=== PATIENT | male | born 1935 | race African-American/Black ===

== ENCOUNTER 2017-01-03 07:06 | Day surgery (SDC) | payer MEDICARE, BC ==
[2017-01-02 07:43] VITALS: BMI 24.3
[~2017-01-03 07:06] MED LIST: FLU VACC TS2017-18 (>65YR) 0.5 ML SYRINGE IM ONE
[2017-01-03 10:51] VITALS: BP 123/52; TEMP 99.4
--- NOTE | 2017-01-03 12:13 | SPC ---
EXAM: LEFT UPPER EXTREMITY FISTULOGRAM: HISTORY: Nonmaturing fistula. COMPARISON: None. EXPOSURE: 2.6 minutes, [id number] mGy*^cm2. FINDINGS: Technically successful left upper extremity fistulogram. There is evidence of a nonmaturing cephalic outflow with multiple collaterals. Despite 2 separate attempts, visualization of the central venous system is somewhat limited. There is short segment mild stenosis at the left subclavian vein. Ther e is some suggestion of contrast opacification of the left brachiocephalic vein as well as the superi or vena cava. With manual compression, contrast was refluxed and the arterial anastomosis is patent. TECHNIQUE: Consent was obtained to perform a left upper extremity fistulogram. The left arm was prepped and pre pped and draped in sterile fashion. 1% Lidocaine, buffered with sodium bicarbonate, was used for loc al anesthesia. Under fluoroscopic guidance, micropuncture needle was used to cannulate the venous ou tflow tract. A 4 Croatian sheath was placed. Through the sheath, a left upper extremity fistulogram w as performed. There are no immediate postprocedure complications. Hemostasis was achieved with manu al compression. IMPRESSION: 1. Nonmaturing fistula likely due to multiple collaterals along the proximal venous outflow. 2. Limited evaluation of the central venous system. There appears to be short-segment mild stenosis involving the left subclavian vein. Limited opacification of the left brachiocephalic vein and supe rior vena cava. Results of the study discussed with Dr. Stratton 01/03/17 at 10:27 a.m. CODE CR POS: MEL
[2017-01-03] MEDS ORDERED: Heparin 1,000 UNITS/ML VIAL ONE (17:00)
--- NOTE | 2017-01-03 20:50 | HP ---
HISTORY OF PRESENT ILLNESS: Henrique Colindres is an 81-year-old male patient who went for a fistulogram t bar. This revealed abundant collaterals left arm from his Everett fistula. This Everett fistula was formed 10/30/2016 and was not maturing as expected. Plan at this time is for intraoperative angiogra ms and ligation of collaterals as indicated. Although not available to my viewing, patient was noted to have a stenting of his superior vena cava and probably collateral runoff from that. This stent i s evident from a chest x-ray 11/06/2016. Patient has a right arm fistula placed in 2010, functioning ; however, he has edema in the right arm. This due to chronic outflow obstruction. This edema is no t bothersome to the patient. Patient is mobile in a wheelchair and his grandson brings him into the office frequently. The patient dialyzes Saturday, Saturday, and Saturday, 829 at [place] [facility]. He dialyzes at [facility] [place]. MEDICATIONS: Isosorbide mononitrate 60 mg a.m., Reglan 5 mg a.c. and at bedtime, Protonix 40 mg a da y, terazosin 2 mg a day, Flomax 0.4 mg a day, Sensipar 30 mg a day, Renvela 800 mg 2 tabs t.i.d., hyd ralazine 100 mg t.i.d., losartan 100 mg at bedtime, nifedipine ER 90 mg daily, gabapentin 300 mg t.i. d., metoprolol 75 mg b.i.d., aspirin 81 mg a day. PAST MEDICAL HISTORY: End-stage renal disease on maintenance dialysis using the right arm dialysis f istula, subclavian vein obstruction right, superior vena cava stent, poly obstruction, bilateral subc lavian veins chronic, microscopic hematuria, BPH, polycystic kidneys, prior history of prostate cance r, history of coronary disease, hyperlipidemia, essential hypertension, chronic prostatitis, heart fa ilure. SOCIAL HISTORY: Patient lives at home, taking care of his graft grandson. He has history of tobacco use, not currently. Alcohol none. PHYSICAL EXAMINATION: VITAL SIGNS: 154/51, 48, 98.1 degrees, 68 inches. LUNGS: Clear to auscultation. ALLERGIES: Few rhonchi at the base. CARDIAC: Regular rate and rhythm. ABDOMEN: Soft. EXTREMITIES: Edematous right upper arm, left arm fistula, Everett patent thrill and bruit present, co llaterals noted. ASSESSMENT AND PLAN: 1. End-stage renal disease with severe superior vena cava obstruction, right subclavian vein obstruc tion, chronic right arm edema with a functioning fistula, collateral runoff. Left arm fistula was no t maturing as expected and will obtain intraoperative angiograms and ligation of collaterals as able. 2. Congestive heart failure history, August 2016, echocardiogram 55-60% EF, left atrium dilated, mild to moderate mitral regurgitation, mild tricuspid regurgitation, moderate pulmonic regurgitation. 3. End-stage renal disease. 4. Deconditioning 5. Poor functional status.
== END 2017-01-03 09:20 | disposition home or self-care (01) ==
LOC: SPEC 07:06
PROVIDERS: ATTEND Specialist
PROC: B51W1ZZ Fluoroscopy of Dialysis Shunt/Fistula using Low Osmolar Contrast (ICD-10-PCS; principal; 2017-01-03)
DX: T82.590A Other mechanical complication of surgically created arteriovenous fistula, initial encounter (principal); N18.6 End stage renal disease
CPT/HCPCS: 36901; J1644

== ENCOUNTER 2017-01-15 10:23 | Day surgery (SDC) | payer MEDICARE, BC ==
[2017-01-03 11:35] VITALS: BMI 25.1
--- NOTE | 2017-01-03 20:50 | HP ---
HISTORY OF PRESENT ILLNESS: Henrique Colindres is an 81-year-old male patient who went for a fistulogram t bar. This revealed abundant collaterals left arm from his Everett fistula. This Everett fistula was formed 10/30/2016 and was not maturing as expected. Plan at this time is for intraoperative angiogra ms and ligation of collaterals as indicated. Although not available to my viewing, patient was noted to have a stenting of his superior vena cava and probably collateral runoff from that. This stent i s evident from a chest x-ray 11/06/2016. Patient has a right arm fistula placed in 2010, functioning ; however, he has edema in the right arm. This due to chronic outflow obstruction. This edema is no t bothersome to the patient. Patient is mobile in a wheelchair and his grandson brings him into the office frequently. The patient dialyzes Saturday, Saturday, and Saturday, 829 at [facility]. He dialyzes at [facility]. MEDICATIONS: Isosorbide mononitrate 60 mg a.m., Reglan 5 mg a.c. and at bedtime, Protonix 40 mg a da y, terazosin 2 mg a day, Flomax 0.4 mg a day, Sensipar 30 mg a day, Renvela 800 mg 2 tabs t.i.d., hyd ralazine 100 mg t.i.d., losartan 100 mg at bedtime, nifedipine ER 90 mg daily, gabapentin 300 mg t.i. d., metoprolol 75 mg b.i.d., aspirin 81 mg a day. PAST MEDICAL HISTORY: End-stage renal disease on maintenance dialysis using the right arm dialysis f istula, subclavian vein obstruction right, superior vena cava stent, poly obstruction, bilateral subc lavian veins chronic, microscopic hematuria, BPH, polycystic kidneys, prior history of prostate cance r, history of coronary disease, hyperlipidemia, essential hypertension, chronic prostatitis, heart fa ilure. SOCIAL HISTORY: Patient lives at home, taking care of his graft grandson. He has history of tobacco use, not currently. Alcohol none. PHYSICAL EXAMINATION: VITAL SIGNS: 154/51, 48, 98.1 degrees, 68 inches. LUNGS: Clear to auscultation. ALLERGIES: Few rhonchi at the base. CARDIAC: Regular rate and rhythm. ABDOMEN: Soft. EXTREMITIES: Edematous right upper arm, left arm fistula, Everett patent thrill and bruit present, co llaterals noted. ASSESSMENT AND PLAN: 1. End-stage renal disease with severe superior vena cava obstruction, right subclavian vein obstruc tion, chronic right arm edema with a functioning fistula, collateral runoff. Left arm fistula was no t maturing as expected and will obtain intraoperative angiograms and ligation of collaterals as able. 2. Congestive heart failure history, August 2016, echocardiogram 55-60% EF, left atrium dilated, mild to moderate mitral regurgitation, mild tricuspid regurgitation, moderate pulmonic regurgitation. 3. End-stage renal disease. 4. Deconditioning 5. Poor functional status.
[2017-01-15 11:39] LABS: #Eosinphils 0.4 thou/uL (0.0-0.7); #Lymphocytes 0.9 thou/uL (1.20-3.40); #Monocytes 0.7 thou/uL (0.11-0.59); #Neutrophils 3.7 thou/uL (1.40-6.50); %Basophils 0.3 % (0.0-1.0); %Eosinophils 6.1 % (0.0-10.0); %Lymphocytes 16.4 % (21.0-51.0); Hematocrit 33.9 % (42.0-52.0); Mean Platelet Volume 10.9 fL (7.4-10.4); Red Blood Cell (RBC) Count 3.53 mill/uL (4.70-6.10); White Blood Cell (WBC) Count 5.7 thou/uL (4.8-10.8)
[2017-01-15] MEDS ORDERED: CEFAZOLIN/Water 2 GM/20 ML SYRINGE ONE (11:46)
[2017-01-15 11:58] LABS: Anion Gap 13 mmol/L (10-20); BUN (Urea Nitrogen) 71 mg/dL (8.4-25.7); Calc. Creatinine Clearance 8 mL/min (70-130); Calcium 8.9 mg/dL (7.8-10.44); Carbon Dioxide 29 mmol/L (23-31); Chloride 101 mmol/L (98-107); Estimated GFR-MDRD 9
[2017-01-15] MEDS ORDERED: Protamine Sulfate 50 MG/5 ML VIAL ONE (12:37)
[2017-01-15] MEDS ORDERED: Ioversol 68 % 50 ML VIAL ONE ×2 (12:37→13:40)
[2017-01-15] MEDS ORDERED: Bupivacaine/Epinephrine 0.25% 30 ML VIAL ONE (12:37)
[2017-01-15] MEDS ORDERED: Heparin 5,000 UNITS/ML VIAL ONE (12:37)
[2017-01-15] MEDS ORDERED: Bupivacaine PF 0.5% 30 ML VIAL ONE (13:00)
--- NOTE | 2017-01-15 14:44 | OP ---
DATE OF OPERATION: 01/15/2017 PREOPERATIVE DIAGNOSES: End-stage renal disease, occluded right subclavian vein with edematous right arm with functioning dialysis access right arm with failure to mature left arm fistula, Everett with collaterals fistulogram. POSTOPERATIVE DIAGNOSES: End-stage renal disease, occluded right subclavian vein with edematous righ t arm with functioning dialysis access right arm with failure to mature left arm fistula, Everett with collaterals fistulogram. PROCEDURES: Intraoperative fistulogram, left arm Everett fistula with ligation of collaterals complet ion angiograms (revision of a primary fistula without thrombectomy). SURGEON: Dr. Jarrell Stratton ANESTHESIA: Regional sedation. PROCEDURE IN DETAIL: Patient taken to the operating room where under intravenous sedation, left uppe r extremity was prepared with ChloraPrep and draped in routine fashion. A 21-gauge Angiocath inserte d into the Everett fistula left arm and angiograms obtained using fluoroscopy marking through collater als making incisions over the arm and dissected free and placed a clip closing the wounds with contin uous subcutaneous suture of 4-0 Monocryl and DermaGlue applied. Completion angiogram revealed resolu tion of collaterals. There seemed to be outflow primarily through the basilic vein and the cephalic vein did not seem to be incontinuity in the upper arm. The patient tolerated the procedure well.
== END 2017-01-15 15:05 | disposition home or self-care (01) ==
LOC: SDC 10:23
PROVIDERS: ATTEND Specialist
PROC: 05WY03Z Revision of Infusion Device in Upper Vein, Open Approach (ICD-10-PCS; principal; 2017-01-15)
DX: T82.590A Other mechanical complication of surgically created arteriovenous fistula, initial encounter (principal); I13.2 Hypertensive heart and chronic kidney disease with heart failure and with stage 5 chronic kidney disease, or end stage renal disease; N18.6 End stage renal disease; I50.9 Heart failure, unspecified; E78.5 Hyperlipidemia, unspecified; Z95.5 Presence of coronary angioplasty implant and graft; Z98.890 Other specified postprocedural states; Z87.891 Personal history of nicotine dependence; Z99.2 Dependence on renal dialysis
CPT/HCPCS: 36415; 76000; 80048; 85025; J0131; J1644; J2720; Q9967; S0020

== ENCOUNTER 2017-10-14 10:02 | Outpatient (CLI) | payer MEDICARE, BC | END 2017-10-14 10:03 | disposition home or self-care (01) | LOC: BICCT 10:02 | PROVIDERS: ATTEND Internal Medicine | DX: R91.1 Solitary pulmonary nodule (principal); F03.90 Unspecified dementia, unspecified severity, without behavioral disturbance, psychotic disturbance, mood disturbance, and anxiety; J98.11 Atelectasis; J90 Pleural effusion, not elsewhere classified; R91.8 Other nonspecific abnormal finding of lung field | CPT/HCPCS: 71250 ==

== ENCOUNTER 2018-07-01 05:05 | Inpatient (IN) | payer MEDICARE, BC ==
[2018-07-01] MEDS ORDERED: Nitroglycerin 2% Ointment 1 INCH/1 GM Packet ONE (06:04)
[2018-07-01] MEDS ORDERED: Furosemide 40 MG/4 ML VIAL ONE ×2 (06:04→08:03)
[2018-07-01 06:21] LABS: #Eosinphils 0.2 thou/uL (0.0-0.7); #Lymphocytes 0.4 thou/uL (1.20-3.40); #Monocytes 0.5 thou/uL (0.11-0.59); #Neutrophils 3.6 thou/uL (1.40-6.50); %Basophils 0.3 % (0.0-1.0); %Eosinophils 4.7 % (0.0-10.0); %Lymphocytes 8.4 % (21.0-51.0); %Monocytes 10.9 % (0.0-10.0); %Neutrophils 75.7 % (42.0-75.0); Hemoglobin 6.1 g/dL (14.0-18.0); Mean Corpuscular HGB CONC 33.2 g/dL (32.0-36.0); Mean Corpuscular Volume 99.3 fL (78.0-98.0); RBC Distribution Width 15.6 % (11.5-14.5); Red Blood Cell (RBC) Count 1.84 mill/uL (4.70-6.10); White Blood Cell (WBC) Count 4.8 thou/uL (4.8-10.8)
[2018-07-01 06:37] LABS: Actual Bicarbonate (HCO3a) 31.8 mEq/L (22-28); Analyzer IN Cardio ER; Base Excess (BEa) 8.3 mEq/L (-2.0 to +3.0); CO2 Tension 39.7 mmHg (35.0-45.0); Carboxyhemoglobin (COHb) 2.2 gm% (0.0-3.0); Hemoglobin (Hb) 6.3 g/dL (14.0-18.0); O2 Tension (PaO2) 74.5 mmHg (> 60.0); Potassium - ABG Lab 3.12 mmol/L (3.70-5.30); pH, Arterial 7.52 (7.35-7.45)
[2018-07-01 06:38] LABS: ALV-art Gradient 46.995 (0-20); Puncture Site LINE
[2018-07-01 06:39] LABS: Mean Platelet Volume 9.5 fL (7.4-10.4); Platelet Count 117 thou/uL (130-400)
[2018-07-01 06:47] LABS: ALT (SGPT) 9 U/L (8-55); AST (SGOT) 17 U/L (5-34); Albumin 3.4 g/dL (3.4-4.8); Alkaline Phosphatase 74 U/L (40-150); Anion Gap 15 mmol/L (10-20); BUN (Urea Nitrogen) 32 mg/dL (8.4-25.7); Bilirubin, Total 0.5 mg/dL (0.2-1.2); Calc. Creatinine Clearance 0 mL/min (70-130); Calcium 8.3 mg/dL (7.8-10.44); Carbon Dioxide 33 mmol/L (23-31); Chloride 97 mmol/L (98-107); Estimated GFR-MDRD 14; Glucose 90 mg/dL (83-110); Potassium 3.4 mmol/L (3.5-5.1); Protein, Total 6.4 g/dL (5.8-8.1); Sodium 142 mmol/L (136-145)
[2018-07-01 07:15] LABS: CKMB 2.4 ng/mL (0-6.6)
[2018-07-01 07:50] LABS: Prothrombin Time 13.4 SEC (12.0-14.7)
[2018-07-01 08:13] LABS: PTT 17.3 SEC (22.9-36.1)
--- NOTE | 2018-07-01 08:24 | RAD ---
PORTABLE CHEST ONE VIEW: 07/01/2018 5:29 a.m. HISTORY: Dyspnea. COMPARISON: 11/06/2016 FINDINGS: The heart is enlarged. There is continued elevation of the left hemidiaphragm with left basilar pleu ral parenchymal changes. There is mild pulmonary vascular congestion. No pneumothoraces are seen. No large right-sided pleural effusions are identified. POS: [facility]
[2018-07-01] MEDS ORDERED: Acetaminophen 325 MG TAB PO PRN (09:21)
[2018-07-01] MEDS ORDERED: Ondansetron ODT 4 MG TAB PO PRN (09:21)
[2018-07-01] MEDS ORDERED: Zolpidem Tartrate 5 MG TAB PO PRN (09:21)
--- NOTE | 2018-07-01 10:16 | HP ---
PRIMARY CARE PROVIDER: Dr. Tenorio. HISTORY OF PRESENT ILLNESS: The patient presents to the emergency room with shortness of breath. No chest pain. No history of orthopnea or paroxysmal nocturnal dyspnea. No sweats or nausea. He was found to have a hemoglobin of 6.1, gives a history of blood in his stools on multiple occasions 7-14 days ago. He did not seek medical care for same. His troponin is 18. PAST MEDICAL HISTORY: 1. Hypertension. 2. Coronary artery disease. 3. Hypothyroidism. 4. Dyslipidemia. 5. End-stage renal disease, on hemodialysis. Sees Dr. Lo. 6. Prostate cancer. MEDICATIONS: 1. Gabapentin 300 mg q.i.d. 2. Losartan 100 mg a day. 3. Hydralazine 100 mg 4 times a day. 4. Imdur 60 mg a day. 5. Reglan 5 mg 3 times a day. 6. Procardia 90 mg a day. 7. Protonix 40 mg a day. 8. Flomax 0.4 mg a day. 9. Terazosin 2 mg a day. ALLERGIES: NO KNOWN DRUG ALLERGIES. PAST SURGICAL HISTORY: Hemodialysis catheter. FAMILY HISTORY: Positive for hypertension. SOCIAL HISTORY: No tobacco. No alcohol. Full code status. Discussed with daughter. REVIEW OF SYSTEMS: GENERAL: No headaches, dizziness, or fainting. EYES: No double vision, blurred vision, or flashing light. EARS, NOSE, AND THROAT: No ear pain or drainage. No nasal bleeding. No trouble swallowing. CARDIAC: No chest pain, orthopnea, or paroxysmal nocturnal dyspnea. RESPIRATION: Shortness of breath over the past day or 2. No asthma or wheezing. GI: Red blood in stools 1-2 weeks ago, multiple episodes. He does not remember how many, he said it was grossly blood. No nausea, vomiting, or abdominal pain. GENITOURINARY: Makes minimal urine. MUSCULOSKELETAL: He has swelling in his legs. No pain in his muscles or joints. NEUROLOGICAL: No strokes, seizures, or focal weakness. PSYCHIATRIC: No anxiety or depression. SKIN: No bruising, bleeding, or rash. HEME/LYMPH: No tender or swollen lymph nodes in axilla, inguinal, or cervical area. PHYSICAL EXAMINATION: GENERAL: He is an alert gentleman, in no distress, cooperative, oriented. VITAL SIGNS: Blood pressure 176/69, pulse 79, respirations 26, temperature 98.9, and O2 saturation 100 on 2L. HEENT: Examination of his head, eyes, ears, nose, and throat revealed pupils are equal, round, and reactive to light, extraocular movements are intact, sclerae white, tympanic membranes clear, nose is clear, oral mucous membranes are dry. Dental hygiene is good. NECK: Supple without jugular venous distention, adenopathy, or thyromegaly. CHEST: Dull in the left base with decreased breath sounds in the left base. HEART: Regular rate and rhythm. First and second heart sounds are clear. There are no appreciated murmurs or gallops. ABDOMEN: Soft. Bowel sounds are normal. There is no hepatosplenomegaly, no mass, no rebound, no bruits. EXTREMITIES: 1+ edema. No cyanosis or clubbing. PULSES: Carotid, radial, femoral, dorsalis pedis pulses. SKIN: Warm and dry without bruises or rash. NEUROLOGIC: Cranial nerves 2 through 12 are intact. Deep tendon reflexes symmetric. Moves all extremities. DIAGNOSTIC STUDIES: EKG has been done, has been filed, and I am attempting to find a full report later. Chest x-ray; cardiomegaly, large left pleural effusion, pulmonary vascular congestion, reviewed by me. LABORATORY DATA: Comprehensive metabolic profile reveals a BUN of 32, creatinine 4.76, chloride 97, CO2 of 33, sodium 142, and potassium 3.4. Troponin is 18.5 and CK-MB is only 2.4. INR is 1.0. Blood gas; pH of 7.52, CO2 of 39.7, O2 of 74.5. White count 4.8, hemoglobin 6.1, and platelet count 117,000. ADMITTING DIAGNOSES: 1. Gastrointestinal bleeding. 2. Acute blood loss secondary to gastrointestinal bleeding with severe anemia. 3. Demand ischemia. 4. History of coronary artery disease. 5. Hypertension. 6. End-stage renal disease. PLAN: The patient will be transferred to [facility]. Transfuse with 2 units of packed cells. GI will be consulted for probable endoscopy. Cardiology will be consulted for the demand ischemia since it is only the troponin elevated and CK-MB is normal. I do not suspect a true non-STEMI in this case. Dr. Lo will be consulted for his routine hemodialysis as mentioned before. The patient will be going to [facility] for close monitoring. Job ID: [id number]
[2018-07-01 11:27] LABS: Troponin I 17.691 ng/mL (< 0.028)
--- NOTE | 2018-07-01 12:52 | CON ---
DATE OF CONSULTATION: HISTORY OF PRESENT ILLNESS: Mr. Colindres is an 82-year-old black male with ESRD, admitted for shortness of breath. He was found to be severely anemic with a hemoglobin of 6.1 to 6.2. He has also elevated troponin I. The patient has been having history of melena for the last 1 to 2 weeks. We are being consulted for his maintenance hemodialysis. I did discuss the case with Dr. Baugh, and I told him he was dialyzed yesterday and to proceed with the blood transfusion since the patient is symptomatic. Of interest, this patient has had previous episode of GI bleed in the past and has had cauterization of his bleeding lesions in the colon. REVIEW OF SYSTEMS: Positive for melena. Positive for generalized malaise. Positive for shortness of breath. No chest pain. No syncopal episode. No productive cough. No fever or chills. No gross hematuria. No dysuria. No urinary frequency. No abdominal pain. No nausea. No vomiting. No hematemesis. Appetite is fair. Decreased energy level. HOME MEDICATIONS: Include the following, 1. Hydralazine 100 mg p.o. t.i.d. 2. Terazosin 2 mg q.a.m. 3. Flomax 0.4 mg q.a.m. 4. Renvela 800 mg 2 tablets t.i.d. with meals. 5. Protonix 40 mg q.a.m. 6. Nifedipine ER 120 mg once a day. 7. Metoprolol tartrate 75 mg p.o. b.i.d. 8. Reglan 5 mg p.o. q.a.m. 9. Losartan 100 mg q.p.m. 10. Imdur 60 mg q.a.m. 11. Gabapentin 300 mg p.o. t.i.d. 12. Sensipar 30 mg q.a.m. PAST MEDICAL HISTORY: 1. End-stage renal disease. 2. BPH. 3. GERD. 4. Longstanding hypertension. 5. Neuropathy. 6. Secondary hyperparathyroidism. 7. 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 8. Status post osteomyelitis. 9. History of polycystic kidney disease. 10. History of colonic polyps, DJD. PAST SURGICAL HISTORY: Status post prostate biopsy, status post radiation of the prostate, status post AV fistula placement, status post cuffed dialysis catheter placement, status post back surgeries, status post colonoscopy, status post colectomy for colonic mass and GI bleed. SOCIAL HISTORY: The patient lives with his daughter. He is a , one child. Smoked for 20 years, half a pack a day. Alcohol, none. Status post blood transfusion. Retired [employer]. Education, 9th grade. No IV drug abuse. FAMILY HISTORY: Positive family history of ESRD. ALLERGIES: NONE. TRAUMA: None. IMMUNIZATION: Up-to-date. HOSPITALIZATION: Please see past medical history. PHYSICAL EXAMINATION: VITAL SIGNS: Blood pressure is currently pending. Heart rate is 70. GENERAL: He is noted to be awake, alert, comfortable, not in overt distress. SKIN: Adequate turgor. HEENT: Pale conjunctivae. Anicteric sclerae. NECK: No neck mass. No carotid bruits. No JVD. CHEST: No deformities. LUNGS: Decreased breath sounds. No wheezing. No crackles. HEART: Normal sinus rhythm. No murmur. No gallops. No rubs. ABDOMEN: Globular, soft, nontender. No masses. EXTREMITIES: No edema. No deformities. NEUROLOGICAL: Awake and oriented to 3 spheres. Moving all extremities. No tremors. No asterixis. No ataxia. LABORATORY DATA: Laboratories of July 01, 2018; white count 4.8, hemoglobin 6.1, hematocrit 18.3. Sodium 142, potassium 3.4, chloride 97, carbon dioxide 33, BUN 32, creatinine 4.76, glucose 90, albumin 3.4. Troponin I is significantly elevated. IMAGING STUDIES: Chest x-ray shows increased lung markings. ASSESSMENT AND PLAN: 1. Gastrointestinal bleed-most likely lower GI tract - his bleed from a previous radiation proctitis. GI consult has been done. He probably will need endoscopy. Agree with blood transfusion at this 1 to 2 units of packed RBC today. 2. Shortness of breath-multifactorial, most likely from the anemia. He did get dialysis yesterday with fluid removal. 3. End-stage renal disease. We will continue current Saturday, Saturday, and Saturday. Due to the recent gastrointestinal bleed, we will hold off any heparin. Fluid removal will be done. I do not see any indication for any emergent hemodialysis this morning with this patient. 4. Elevated troponin I-Cardiology has been consulted for the patient. Job ID: [id number] MTDD
[2018-07-01] MEDS ORDERED: Pantoprazole 40 MG VIAL IVP SCH (13:15)
[2018-07-01 13:32] LABS: Troponin I 18.256 ng/mL (< 0.028)
[2018-07-01 15:10] LABS: Hemoglobin 8.3 g/dL (14.0-18.0); Mean Corpuscular HGB CONC 33.8 g/dL (32.0-36.0); Mean Corpuscular Hemoglobin 31.2 pg (27.0-31.0); Mean Corpuscular Volume 92.3 fL (78.0-98.0); Mean Platelet Volume 9.7 fL (7.4-10.4); Platelet Count 141 thou/uL (130-400); RBC Distribution Width 19.6 % (11.5-14.5); Red Blood Cell (RBC) Count 2.67 mill/uL (4.70-6.10); White Blood Cell (WBC) Count 7.3 thou/uL (4.8-10.8)
[2018-07-01 15:34] LABS: #Eosinphils 0.2 thou/uL (0.0-0.7); #Lymphocytes 0.7 thou/uL (1.20-3.40); #Monocytes 0.7 thou/uL (0.11-0.59); #Neutrophils 5.8 thou/uL (1.40-6.50); %Basophils 0.3 % (0.0-1.0); %Eosinophils 2.2 % (0.0-10.0); %Lymphocytes 9.7 % (21.0-51.0); %Monocytes 8.9 % (0.0-10.0); %Neutrophils 78.9 % (42.0-75.0); Anisocytosis SLIGHT = 6-15 cells (100X) (0-5/hpf); MDiff Complete? YES; Platelet Morphology Comment Appears Adequate; Poikilocytosis SLIGHT = 6-15 cells (100X) (0-5/hpf)
[2018-07-01] MEDS ORDERED: hydrALAZINE 20 MG/ML VIAL SLOW IVP PRN (19:48)
--- NOTE | 2018-07-01 19:57 | CON ---
DATE OF CONSULTATION: 07/01/2018 SERVICE: Pulmonary Medicine. REASON FOR CONSULTATION: ICU patient. HISTORY OF PRESENT ILLNESS: The patient is an 82-year-old white male with past medical history significant for dementia and end-stage renal disease. He was in his usual state of health when he started having acute blood loss from the bottom. His blood pressures were elevated. He was brought to the emergency department. He is in the process of getting a second unit of blood. We have yet to get a repeat hemoglobin, those vital signs have remained stable. He cannot provide much in the way of presenting illness. Denies any fevers, chills, cough, sputum production. He is having a little bit of dyspnea that limits much of his activity, but he spends most of his time in bed. Mr. Colindres has a fairly advanced dementia. PAST MEDICAL HISTORY: 1. Hypertension. 2. Coronary artery disease. 3. Dyslipidemia. 4. Hypothyroidism. 5. End-stage renal disease. 6. Prostate cancer. PAST SURGICAL HISTORY: Hemodialysis catheter placement. FAMILY HISTORY: Noncontributory. SOCIAL HISTORY: Negative for alcohol, tobacco, or illicit drug use. He requires complete care for his ADLs. He is nonambulatory. ALLERGIES: NO KNOWN DRUG ALLERGIES. MEDICATIONS: List of his inpatient medications was reviewed. No specific updates were made at this time. REVIEW OF SYSTEMS: General; head, ears, eyes, nose, and throat; cardiovascular; respiratory; GI; ; musculoskeletal; neurologic; and skin is negative except as mentioned in the HPI. PHYSICAL EXAMINATION: VITAL SIGNS: Afebrile. Pulse 89, blood pressure 169/73, respirations 16, and O2 saturation 100% on room air at this point. GENERAL: The patient is awake and alert, in no apparent distress. LUNGS: Decent air entry. There are extensive crackles present. There is no prolonged expiratory phase or wheezing present. HEART: Normal rate. Regular. ABDOMEN: Soft, nontender, nondistended. Bowel sounds are positive. MUSCULOSKELETAL: No cyanosis or clubbing. 2+ pitting is present in bilateral lower extremities. NEUROLOGIC: Grossly nonfocal. LABORATORY DATA: WBC 4.8; hemoglobin 6.1; platelets 117,000, and roughly stable. INR 1.0. PH 7.52, pCO2 is 39, pO2 is 74 on 2 L nasal cannula at that time. Creatinine 4.76, BUN 32. Potassium 3.4. Liver function studies are unremarkable. CK-MB falls within normal limits. Troponin is 17. IMAGING DATA: Chest x-ray demonstrates enlarged heart. Elevation of the left hemidiaphragm. Pulmonary vascular congestion is noted without pneumothorax. There are no large consolidating changes or effusions. ASSESSMENT: 1. Acute blood loss anemia. 2. Gastrointestinal bleed, suspected. 3. End-stage renal disease. 4. Ghe-CN-rcrytlblg myocardial infarction. 5. Acute on chronic systolic and valvular heart failure. DISCUSSION AND PLAN: Cardiology consultation has been placed for the elevated troponin. We will continue to dialyze him as previously detailed. We will trend his hemoglobins through time and make certain we transfuse him enough blood to stay above 7. The patient is currently volume overloaded, but I do not want to be too overtly aggressive with blood pressure medications, or dialysis to remove fluid in his current state. If his hemoglobins are relatively stable, we can be more aggressive with volume removal. He will certainly remain in the ICU for the time being. 70 minutes have been devoted to this patient in various activities. I personally reviewed all imaging studies and laboratory data noted within this document. For fifty percent of this time, I was interacting with the patient at the bedside or coordinating care with the care team. For the remainder of the time I was immediately available to the patient in the hospital unit. Job ID: [id number] MTDD
[2018-07-01] MEDS ORDERED: cloNIDine 0.3mg/24 Hour PATCH TD SCH (20:00)
[2018-07-01] MEDS: Pantoprazole 40 MG VIAL IVP SCH (20:03)
[2018-07-01] MEDS ORDERED: Famotidine/PF 20 mg/2ml Vial SLOW IVP SCH (21:00)
[2018-07-01 21:09] LABS: #Lymphocytes 0.5 thou/uL (1.20-3.40); #Monocytes 0.7 thou/uL (0.11-0.59); #Neutrophils 5.8 thou/uL (1.40-6.50); %Eosinophils 0.5 % (0.0-10.0); %Lymphocytes 7.3 % (21.0-51.0); %Monocytes 9.8 % (0.0-10.0); %Neutrophils 82.5 % (42.0-75.0); Hemoglobin 8.1 g/dL (14.0-18.0); Mean Corpuscular HGB CONC 33.6 g/dL (32.0-36.0); Mean Corpuscular Hemoglobin 31.4 pg (27.0-31.0); Mean Corpuscular Volume 93.7 fL (78.0-98.0); Mean Platelet Volume 10.2 fL (7.4-10.4); Platelet Count 131 thou/uL (130-400); RBC Distribution Width 19.9 % (11.5-14.5); Red Blood Cell (RBC) Count 2.57 mill/uL (4.70-6.10); White Blood Cell (WBC) Count 7.1 thou/uL (4.8-10.8)
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
--- NOTE | 2018-07-02 01:00 | CON ---
DATE OF CONSULTATION: 07/01/2018 REASON FOR CONSULTATION: Melena and hematochezia. 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 The majority of the information was obtained from the patient's daughters as well as some information from the patient, although the patient was somewhat lethargic during the evaluation. Per the patient's daughter, the patient had been having intermittent bouts of bright red blood per rectum for the last year and had been seen by Dr. Sharma as an outpatient for radiation proctitis. He had undergone multiple episodes of colonoscopy with argon plasma coagulation to that affect. However, over the last 3 weeks, he has been having an increasing number of black stools, characterized as having 1 black solid bowel movement every 1 to 2 days that would require some straining in order to facilitate defecation. He denied any additional symptoms over these last 3 weeks until earlier this morning at approximately 3:00 a.m. this morning, when he began to complain of increased shortness of breath, prompting admission into the ER for further evaluation. While in the ER, he was noted to have bright red blood per rectum as well as darker colored stools and when he was evaluated with CBC, noted to have a significantly decreased H and H when compared to baseline concerning for GI bleeding. At the time of this interview, the patient was undergoing IV infusion of blood and states that he was feeling a little bit better at that time. Currently, he denies any nausea, vomiting, fevers, chills, hematemesis, abdominal pain, dysphagia, odynophagia, or weight loss. Of note, upon review of the patient's labs, his troponin was 18 on admission concerning for an NSTEMI. REVIEW OF SYSTEMS: A 10-category review of systems was obtained. With all response, it is either negative or unable to get accurate answer due to the patient's lethargy. PAST MEDICAL HISTORY: As per HPI. PAST SURGICAL HISTORY: Hemodialysis catheter placement and superior vena cava stent placement. FAMILY HISTORY: Denies any history of GI malignancies. SOCIAL HISTORY: Denies any tobacco, alcohol, or illicit drug use. OUTPATIENT MEDICATIONS: Reviewed. ALLERGIES: NO KNOWN DRUG ALLERGIES. PHYSICAL EXAMINATION: VITAL SIGNS: Temperature 98.9, pulse 87, blood pressure 191/107, respiratory rate 17 and saturating 100% on room air. GENERAL: The patient was lying in bed, in no acute distress. Alert and oriented x3. HEENT: Normocephalic, atraumatic. No JVD or scleral icterus noted. CARDIOVASCULAR: Regular rate and rhythm with no discernible murmurs, gallops, or rubs. RESPIRATORY: Clear to auscultation bilaterally with no discernible wheezes or rales. ABDOMEN: Hyperactive bowel sounds. Soft, nontender, nondistended. EXTREMITIES: No cyanosis, clubbing, or edema. LABORATORY DATA: CBC with a white blood cell count of 4.8, hemoglobin 6.1, hematocrit 18.3, platelets 117. INR 1.0. Troponin 18.525. Chemistry with a sodium of 142, potassium 3.4, chloride 97, CO2 33, BUN 32, creatinine 4.76, glucose 90, AST 17, ALT 9, alkaline phosphatase 74, total bilirubin 0.5, and albumin 3.4. IMAGING DATA: Chest x-ray obtained on July 01, 2018, showed mild pulmonary vascular congestion without any other acute abnormalities. 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 Melena/hematochezia/GI bleed: The patient is presenting with a longstanding history of bright red blood per rectum that has been occurring intermittently over the last year secondary to a concurrent diagnosis of radiation proctitis, for which he had been seen by Dr. Sharma as an outpatient and underwent colonoscopy with APC. However, over the last 3 weeks, he began to have increasing amounts of black solid stools concerning for the presence of an upper GI bleed. On admission here, he was noted to have a significantly decreased H and H again consistent with a GI bleed, but it is unable to be further elucidated given that his BUN to creatinine ratio is altered due to his chronic kidney disease/hemodialysis condition. At this time, the differential could include esophagitis, gastritis, arteriovenous malformation, Dieulafoy lesion, radiation proctitis, peptic ulcer disease and/or GI neoplasm. However, with the patient's currently elevated troponins, it is strongly concerning for possible cardiac abnormality with the troponins being a little higher than expected for demand ischemia related to the anemia coming into the door. At this time given his significantly elevated troponins, endoscopic intervention may be ill-advised prior to cardiac workup. RECOMMENDATIONS: 1. Would continue to trend H and H and transfuse as necessary to maintain an H and H of 7/. 2. Continue to monitor clinically for signs of active GI bleeding. 3. Recommend cardiology consult for significantly elevated troponins and possible non ST elevation myocardial infarction. 4. We would continue patient on PPI 40 mg b.i.d. in light of possible upper GI bleed. 5. No endoscopic intervention is planned at this time due to increasing troponins and possible non ST elevation myocardial infarction. If this is demand ischemia, then it should start to decrease with the infusion of blood. 6. When given clearance for endoscopic intervention, I would plan for both an EGD and colonoscopy for further evaluation of this GI bleeding source. We will continue to follow. Please call with any questions. Job ID: [id number]
[2018-07-02 04:13] LABS: #Eosinphils 0.1 thou/uL (0.0-0.7); #Lymphocytes 0.4 thou/uL (1.20-3.40); #Monocytes 0.5 thou/uL (0.11-0.59); #Neutrophils 5.2 thou/uL (1.40-6.50); %Basophils 0.3 % (0.0-1.0); %Eosinophils 1.4 % (0.0-10.0); %Lymphocytes 6.6 % (21.0-51.0); %Monocytes 8.4 % (0.0-10.0); %Neutrophils 83.3 % (42.0-75.0); Hemoglobin 7.9 g/dL (14.0-18.0); Mean Corpuscular HGB CONC 33.1 g/dL (32.0-36.0); Mean Corpuscular Volume 93.6 fL (78.0-98.0); Platelet Count 126 thou/uL (130-400); RBC Distribution Width 19.7 % (11.5-14.5); Red Blood Cell (RBC) Count 2.54 mill/uL (4.70-6.10); White Blood Cell (WBC) Count 6.2 thou/uL (4.8-10.8)
[2018-07-02 04:31] LABS: Anion Gap 17 mmol/L (10-20); BUN (Urea Nitrogen) 48 mg/dL (8.4-25.7); Calc. Creatinine Clearance 0 mL/min (70-130); Calcium 8.3 mg/dL (7.8-10.44); Carbon Dioxide 31 mmol/L (23-31); Chloride 97 mmol/L (98-107); Estimated GFR-MDRD 10; Glucose 83 mg/dL (83-110); Potassium 3.6 mmol/L (3.5-5.1); Sodium 141 mmol/L (136-145)
[2018-07-02] MEDS: Pantoprazole 40 MG VIAL IVP SCH ×2 (08:17→22:00)
--- NOTE | 2018-07-02 10:02 | PRG ---
DATE OF SERVICE: 07/02/2018 SERVICE: Renal Medicine. SUBJECTIVE HISTORY: Mr. Colindres is an 82-year-old black male with ESRD and followed up by the Renal Service for his maintenance hemodialysis. He is undergoing dialysis today. I am at the bedside supervising his dialysis. We are using no heparin due to the recent GI bleed. He is being followed up by GI. Planned endoscopy is being entertained. He feels better after the blood transfusion. OBJECTIVE: VITAL SIGNS: Blood pressure is 156/108, heart rate 73, respiratory rate 18, and temperature is noted at 99.1. GENERAL: Awake, alert, comfortable, not in distress. SKIN: Adequate turgor. HEENT: He has pinkish conjunctivae. Anicteric sclerae. NECK: No neck mass. No carotid bruits. No JVD. CHEST: No deformities. LUNGS: Clear breath sounds. No wheezing. No crackles. HEART: Normal sinus rhythm. No murmur. No gallops. No rubs. ABDOMEN: Globular, soft, and nontender. No masses. EXTREMITIES: No edema. No deformities. MEDICATIONS: Medications of July 02, 2018, reviewed. LABORATORY DATA: laboratories of July 02, 2018; white count 6.2, hemoglobin 7.9, and hematocrit 23.7. Sodium 141, potassium 3.6, chloride 97, carbon dioxide 31, BUN 48, creatinine 6.27, calcium 8.3, and glucose 83. Troponin I 18.256. ASSESSMENT AND PLAN: 1. Gastrointestinal bleed - most likely from a recurrent lower gastrointestinal bleed from radiation proctitis. GI will re-evaluate this patient again. P.r.n. blood transfusion. The patient is also going to be started on his weekly Epogen regimen of 10,000 units subcu every week. 2. End-stage renal disease, stable, currently tolerating hemodialysis. Fluid removal of 2 to 3 L as tolerated. We will do a 3.5 hours today with this patient. We are using no heparin. 3. Hypertension - currently on TTS-3 and p.r.n. hydralazine. Currently, the patient is still n.p.o. Overall recheck. Agree with current management. Recheck basic metabolic panel and CBC in a.m. Job ID: [id number]
--- NOTE | 2018-07-02 10:22 | PRG ---
DATE OF SERVICE: 07/02/2018 SERVICE: Pulmonary Medicine. INTERVAL HISTORY: The patient is doing really well from respiratory standpoint. He is breathing comfortably on 2 L nasal cannula. He is being hooked up for dialysis right now. He does not have any complaints of chest pain, fevers, chills, nausea, or vomiting. GI is awaiting for clearance from Cardiology to move forward with our procedure. Cardiology suggested that they believe this all [id number] myocardial infarction secondary to stress from the anemia and that proceeding with the procedure would be reasonable. There has been no interval change to his condition, however. He has not required any blood since yesterday, and his hemoglobins have trickle down to 7.9. PHYSICAL EXAMINATION: VITAL SIGNS: Afebrile, pulse 73, blood pressure 156/108, respirations 18, and saturation 97% on room air. GENERAL: The patient is awake and alert, in no apparent distress. LUNGS: Excellent air entry. There is no prolonged expiratory phase. Crackles are present. No rhonchi. HEART: Normal rate and regular. ABDOMEN: Soft, nontender, and nondistended. Bowel sounds are positive. MUSCULOSKELETAL: No cyanosis or clubbing. There is still 2+ pitting in the bilateral lower extremities. NEUROLOGIC: Grossly nonfocal. LABORATORY DATA: WBC 7.9 and gently downtrending. WBC and platelet count are essentially unremarkable/stable. INR 1.0. A pH 7.52, pCO2 of 39, pO2 of 74. Creatinine 6.27 and up trending, BUN 48. Basic metabolic profile is otherwise unremarkable. Troponin is gently trending upward to 12.5. IMAGING STUDIES: Echocardiogram shows 20% to 25% ejection fraction, underlying atrial fibrillation. Severe mitral regurgitation and kegclodo-ok-hlyhhw aortic stenosis are present. Severely elevated pulmonary artery pressures are present. ASSESSMENT: 1. Acute blood loss anemia. 2. Acute hypoxic respiratory failure. 3. Gastrointestinal bleed, suspected. 4. End-stage renal disease. 5. Cbg-QR-qwtdociss myocardial infarction. 6. Acute on chronic systolic and valvular heart failure (severe MR, ). DISCUSSION AND PLAN: His hemoglobins are roughly stable. As such, he can be transitioned to the telemetry unit. We will try to maintain excellent blood pressure control in light of his mitral regurgitation. Pulmonary will continue to follow for the time being. Hopefully, he will be able to go for EGD soon enough. Of note, he had over 10 small bowel movements yesterday. They were black, but formed stools. Job ID: [id number] [facility]
--- NOTE | 2018-07-02 11:58 | PDOC.PN ---
- Subjective Encounter Start Date: 07/02/18 Encounter Start Time: 11:57 Subjective: mild sob - Objective Resuscitation Status - Order Detail: 07/01/18 09:16 Resuscitation Status Routine Resuscitation Status: FULL: Full Resuscitation MAR Reviewed: Yes Vital Signs & Weight: Vital Signs (12 hours) Temp 07/02/18 07:00 99.1 F 07/02/18 04:00 98.4 F Most Recent Monitor Data Heart Rate from ECG 73 NIBP 178/63 NIBP BP-Mean 101 Respiration from ECG 15 SpO2 100 I&O: 07/01/18 07/02/18 07/03/18 06:59 06:59 06:59 Intake Total 1050 1050 Output Total 11 0 Balance 1039 1050 Result Diagrams: 07/02/18 03:50 07/02/18 03:50 Radiology Reviewed by me: No (echo-severe [employer] with LVEF 20-25%) Phys Exam - Physical Examination Neck: no JVD dull L base, post rales on R Cardiovascular: RRR Gastrointestinal: soft, non-tender, positive bowel sounds Musculoskeletal: edema present Dx/Plan (1) GI bleeding Code(s): K92.2 - GASTROINTESTINAL HEMORRHAGE, UNSPECIFIED Status: Acute (2) Anemia due to blood loss, acute Code(s): D62 - ACUTE POSTHEMORRHAGIC ANEMIA Status: Acute (3) NSTEMI (non-ST elevated myocardial infarction) Code(s): I21.4 - NON-ST ELEVATION (NSTEMI) MYOCARDIAL INFARCTION Status: Acute (4) CAD (coronary artery disease) Code(s): I25.10 - ATHSCL HEART DISEASE OF [place] CORONARY ARTERY W/O ANG PCTRS Status: Acute Qualifiers: Coronary Disease-Associated Artery/Lesion type: [place] artery [place] vs. transplanted heart: [place] heart Associated angina: without angina Qualified Code(s): I25.10 - Atherosclerotic heart disease of [place] coronary artery without angina pectoris (5) Cardiomyopathy Code(s): I42.9 - CARDIOMYOPATHY, UNSPECIFIED Status: Acute Qualifiers: Cardiomyopathy type: ischemic Qualified Code(s): I25.5 - Ischemic cardiomyopathy (6) ESRD (end stage renal disease) Code(s): N18.6 - END STAGE RENAL DISEASE Status: Chronic (7) HTN (hypertension) Code(s): I10 - ESSENTIAL (PRIMARY) HYPERTENSION Status: Chronic Qualifiers: Hypertension type: essential hypertension Qualified Code(s): I10 - Essential (primary) hypertension (8) Anemia of renal disease Code(s): D63.1 - ANEMIA IN CHRONIC KIDNEY DISEASE Status: Chronic (9) Hypertension Code(s): I10 - ESSENTIAL (PRIMARY) HYPERTENSION Status: Chronic - Plan HD in progress -: monitor H&H q6h, keep Hg > 7 -: cont protonix, etc -: endoscopy * .
[2018-07-02 12:28] LABS: Hemoglobin 8.6 g/dL (14.0-18.0); Platelet Count 148 thou/uL (130-400)
[2018-07-02 12:53] VITALS: BMI 24.3
[2018-07-02] MEDS ORDERED: GoLYTELY 4,000 ml Bottle PO SCH (13:30)
--- NOTE | 2018-07-02 14:43 | PRG ---
DATE OF SERVICE: 07/02/2018 SUBJECTIVE: This is an 82-year-old black male, hospitalized with hematochezia, history of black tarry stool. There was some confusion about bright red blood per rectum or he has dark stool. The nurse tells me he has brownish stools. The patient has had no rectal bleeding. No abdominal pain. No nausea or vomiting. He was found to have elevation of the troponin level and also non-ST elevation of the EKG and was found suggestive of myocardial infarction. The patient was transfused. The patient was seen by Cardiology and Cardiology ordered the endoscopic studies. The patient has had no bleeding since admission. He has no abdominal pain, no nausea, no vomiting. LABORATORY DATA: His blood count is very stable . WBC is 6200, hemoglobin 8.6, and hematocrit 26.1. He has had hemodialysis done today. PHYSICAL EXAMINATION: GENERAL: Appears comfortable. VITAL SIGNS: Stable. Pulse is 81, blood pressure 141/96. CARDIOVASCULAR SYSTEM: Within normal limits. LUNGS: Within normal limits. ABDOMEN: Soft. Abdomen is nontender. There is no organomegaly or masses. Bowel sounds normal. CLINICAL IMPRESSION: 1. Gastrointestinal bleeding, etiology unclear. There is some confusion about this. , the stool is brownish. 2. 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 3. Rectal telangiectasias, status post argon plasma coagulation in the past. PLAN: Prep the patient for colonoscopy and EGD later on today. I did talk to Mr. Duenas and explained him about the bowel prep. He is agreeable. Once he is prepped, I will plan for colonoscopy and EGD later on today. Job ID: [id number]
[2018-07-02 18:36] LABS: Hemoglobin 8.9 g/dL (14.0-18.0); Platelet Count 154 thou/uL (130-400)
[2018-07-02] MEDS ORDERED: Ketamine 50 MG/ML (10ML VIAL) ONE (19:45)
[2018-07-02] MEDS ORDERED: Benzocaine 20% Spray 60 ML CAN ONE (20:08)
[2018-07-02] MEDS ORDERED: Promethazine HCl 25 MG/ML VIAL IM PRN (21:22)
[2018-07-02] MEDS ORDERED: Promethazine HCl 25 MG/ML VIAL SLOW IVP PRN (21:22)
[2018-07-02] MEDS ORDERED: Ondansetron HCl/PF 4 MG/2 ML Vial IVP PRN (21:22)
[2018-07-03 01:42] LABS: Hemoglobin 7.4 g/dL (14.0-18.0); Platelet Count 119 thou/uL (130-400)
--- NOTE | 2018-07-03 03:52 | OP ---
DATE OF PROCEDURE: 07/02/2018 PROCEDURE PERFORMED: Esophagogastroduodenoscopy. PREOPERATIVE DIAGNOSIS: GI bleeding, anemia due to blood loss. POSTOPERATIVE DIAGNOSIS: Normal gastroscopy. In the duodenal bulb, the mucosa was hyperpigmented, most likely represents melanosis. There was no pathology seen in the GI tract to explain the bleeding. DESCRIPTION OF PROCEDURE: The patient was placed on his left lateral position and was given sedation by Anesthesia Department. A Pentax video gastroscope under direct vision passed down the oropharynx, past the GE junction into the stomach. The esophageal mucosa appeared normal. The GE junction, no pathology seen. The fundus and cardia, no pathology. The gastric body, gastric antrum, no pathology seen. The scope was advanced into the duodenal bulb. The mucosa appears hyperpigmented, possibly represents melanosis. The descending duodenum, no pathology. The stomach decompressed and the scope removed. Job ID: [id number]
--- NOTE | 2018-07-03 04:19 | OP ---
DATE OF PROCEDURE: 07/02/2018 PROCEDURES PERFORMED: 1. Colonoscopy with polypectomy. 2. Colonoscopy with 7-[place] BICAP therapy at polypectomy site because of bleeding. PREOPERATIVE DIAGNOSIS: Anemia due to blood loss, GI bleeding. POSTOPERATIVE DIAGNOSES: 1. Healthy anastomosis. 2. Occasional diverticula in the proximal colon. 3. Large sessile polyp, descending colon. Large sessile polyp, sigmoid colon. Another medium-sized polyp in the descending colon. All the three were removed by cautery. Only two of the polypectomy sites had some bleeding which was controlled with 7-[place] BICAP therapy. DESCRIPTION OF PROCEDURE: On withdrawal of the scope in the anastomotic area, transverse colon, splenic flexure, no other pathology seen. The descending colon and sigmoid colon polyps were removed with snare cautery. The rectum showed hemorrhoids and also what appears to be telangiectasia. The telangiectasia are occasional and mild. My feeling is that he mostly bleeding from the cholangitis, he also has hemorrhoids. RECOMMENDATIONS: 1. Keep the patient on clear liquid diet overnight. In case the patient has bleeding, may need another colonoscopy. 2. . 3. Transfuse p.r.rafia Job ID: [id number]
[2018-07-03 05:56] LABS: #Eosinphils 0.2 thou/uL (0.0-0.7); #Lymphocytes 0.4 thou/uL (1.20-3.40); #Monocytes 0.5 thou/uL (0.11-0.59); #Neutrophils 4.6 thou/uL (1.40-6.50); %Basophils 0.2 % (0.0-1.0); %Eosinophils 2.7 % (0.0-10.0); %Lymphocytes 6.9 % (21.0-51.0); %Neutrophils 82.2 % (42.0-75.0); Hemoglobin 7.3 g/dL (14.0-18.0); Mean Corpuscular HGB CONC 32.3 g/dL (32.0-36.0); Mean Corpuscular Hemoglobin 30.2 pg (27.0-31.0); Mean Corpuscular Volume 93.6 fL (78.0-98.0); Mean Platelet Volume 9.9 fL (7.4-10.4); Platelet Count 126 thou/uL (130-400); RBC Distribution Width 18.7 % (11.5-14.5); White Blood Cell (WBC) Count 5.6 thou/uL (4.8-10.8)
[2018-07-03 06:16] LABS: Anion Gap 19 mmol/L (10-20); BUN (Urea Nitrogen) 38 mg/dL (8.4-25.7); Calc. Creatinine Clearance 12 mL/min (70-130); Calcium 8.1 mg/dL (7.8-10.44); Carbon Dioxide 29 mmol/L (23-31); Chloride 100 mmol/L (98-107); Estimated GFR-MDRD 13; Glucose 80 mg/dL (83-110); Potassium 3.5 mmol/L (3.5-5.1); Sodium 144 mmol/L (136-145)
--- NOTE | 2018-07-03 09:00 | PRG ---
DATE OF SERVICE: 07/03/2018 SUBJECTIVE: Mr. Colindres is an 82-year-old black male with ESRD, who was admitted for a GI bleed. He has undergone an upper and lower GI endoscopy. Upper GI endoscopy was said to be normal. 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 No other complaints today. He is feeling better. He has received p.r.n. blood transfusion in the last few days. OBJECTIVE: VITAL SIGNS: Blood pressure 120/75, heart rate 66, respiratory rate 18, temperature 97.8, and pulse ox 92%. GENERAL: Noted to be awake, alert, supine, comfortable, not in distress. SKIN: Adequate turgor. HEENT: Slightly pale conjunctivae. Anicteric sclerae. NECK: No neck mass. No carotid bruits. No JVD. CHEST: No deformities. LUNGS: Clear breath sounds. No wheezing. No crackles. HEART: Normal sinus rhythm. No murmur, no gallops, no rubs. ABDOMEN: Globular, soft, nontender. No masses. EXTREMITIES: No edema. No deformities. MEDICATIONS: Medications of July 03, 2018, reviewed. LABORATORY DATA: Laboratories of July 03, 2018; white count 5.6, hemoglobin 7.3. Sodium 144, potassium 3.5, chloride 100, carbon dioxide 29, BUN 30, creatinine 5.04, glucose 80, calcium 8.1. ASSESSMENT AND PLAN: 1. End-stage renal disease-stable. Continuing Saturday, Saturday, Saturday hemodialysis. Due to the recent GI bleed, we are holding off any heparin. Fluid removal only as tolerated. 2. Gastrointestinal bleed-the patient underwent endoscopy. No active bleeding noted. A polypectomy done with a colonoscopy. 3. Hemoglobin, noted at 7.3-consider blood transfusion once it becomes less than 7. We will also continue weekly Epogen with this patient. 4. Hypertension. Continue current BP medications. 5. Overall agree with current management. 6. Elevated troponin I. The patient has been evaluated by Cardiology. Recommendation is to evaluate his aortic stenosis with echocardiogram in the next 1 to 2 days. Job ID: [id number] MTDD
[2018-07-03] MEDS: Pantoprazole 40 MG VIAL IVP SCH ×2 (09:30→21:23)
--- NOTE | 2018-07-03 12:48 | PDOC.PN ---
- Subjective Encounter Start Date: 07/03/18 Encounter Start Time: 09:20 Subjective: awake, not fully oriented -: no abd pain or nausea - Objective Resuscitation Status - Order Detail: 07/01/18 09:16 Resuscitation Status Routine Resuscitation Status: FULL: Full Resuscitation MAR Reviewed: Yes Vital Signs & Weight: Vital Signs (12 hours) Temp Pulse Resp BP Pulse Ox 07/03/18 08:35 95 07/03/18 08:20 98.0 F 74 18 97/56 L 95 07/03/18 03:25 97.8 F 66 18 120/75 92 L Weight Admit Weight 174 lb 10.88 oz Weight 174 lb 10.88 oz Most Recent Monitor Data Heart Rate from ECG 80 NIBP 157/89 NIBP BP-Mean 111 Respiration from ECG 24 SpO2 100 I&O: 07/02/18 07/03/18 07/04/18 06:59 06:59 06:59 Intake Total 1050 2570 Output Total 11 0 Balance 1039 2570 Result Diagrams: 07/03/18 05:45 07/03/18 05:45 Phys Exam - Physical Examination HEENT: PERRLA, sclera anicteric Neck: supple Respiratory: no wheezing, no rhonchi has engorged ant chest veins Cardiovascular: RRR, no significant murmur Gastrointestinal: soft, no distention, positive bowel sounds Musculoskeletal: pulses present, edema present Neurological: non-focal, moves all 4 limbs Dx/Plan (1) Anemia due to blood loss, acute Code(s): D62 - ACUTE POSTHEMORRHAGIC ANEMIA Status: Acute (2) CAD (coronary artery disease) Code(s): I25.10 - ATHSCL HEART DISEASE OF [place] CORONARY ARTERY W/O ANG PCTRS Status: Chronic Qualifiers: Coronary Disease-Associated Artery/Lesion type: [place] artery [place] vs. transplanted heart: [place] heart Associated angina: without angina Qualified Code(s): I25.10 - Atherosclerotic heart disease of [place] coronary artery without angina pectoris (3) Cardiomyopathy Code(s): I42.9 - CARDIOMYOPATHY, UNSPECIFIED Status: Chronic Qualifiers: Cardiomyopathy type: ischemic Qualified Code(s): I25.5 - Ischemic cardiomyopathy Comment: ef of 20% (4) GI bleeding Code(s): K92.2 - GASTROINTESTINAL HEMORRHAGE, UNSPECIFIED Status: Suspected (5) Anemia of renal disease Code(s): D63.1 - ANEMIA IN CHRONIC KIDNEY DISEASE Status: Chronic (6) BPH (benign prostatic hyperplasia) Code(s): N40.0 - BENIGN PROSTATIC HYPERPLASIA WITHOUT LOWER URINRY TRACT SYMP Status: Chronic Qualifiers: Lower urinary tract symptom presence: unspecified whether lower urinary tract symptoms present Qualified Code(s): N40.0 - Benign prostatic hyperplasia without lower urinary tract symptoms (7) ESRD (end stage renal disease) on dialysis Code(s): N18.6 - END STAGE RENAL DISEASE; Z99.2 - DEPENDENCE ON RENAL DIALYSIS Status: Chronic Comment: Plan for HD per Nephrology (8) Hypertension Code(s): I10 - ESSENTIAL (PRIMARY) HYPERTENSION Status: Chronic Qualifiers: Hypertension type: essential hypertension Qualified Code(s): I10 - Essential (primary) hypertension (9) Mitral regurgitation and aortic stenosis Code(s): I08.0 - RHEUMATIC DISORDERS OF BOTH MITRAL AND AORTIC VALVES Status: Acute Comment: non rheumatic - Plan h/h around 09/08, HD per nephrology, has vol overload -: egd/colonoscopy did not reveal any bleeding source -: continue clonidine tts, protonix -: advance diet as tolerated -: hemostable * . Review of Systems - Medications/Allergies Allergies/Adverse Reactions: Allergies Allergy/AdvReac Type Severity Reaction Status Date / Time No Known Drug Allergies Allergy Verified 01/03/17 11:35 Medications: Current Medications Acetaminophen (Tylenol) 650 mg PO Q4H PRN PRN Reason: Headache/Fever/Mild Pain (1-3) Clonidine (Jokgrqok-Njh-3) 0.3 mg TD Q7D [facility] Last Admin: 07/01/18 20:03 Dose: 0.3 mg Hydralazine HCl (Apresoline) 10 mg SLOW IVP Q4H PRN PRN Reason: SBP > 180 Last Admin: 07/01/18 20:01 Dose: 10 mg Ondansetron HCl (Zofran Odt) 4 mg PO Q6H PRN PRN Reason: Nausea/Vomiting Pantoprazole Sodium (Protonix) 40 mg IVP Q12HR [facility] Last Admin: 07/03/18 09:30 Dose: 40 mg Zolpidem Tartrate (Ambien) 5 mg PO HSPRN PRN PRN Reason: Insomnia
--- NOTE | 2018-07-03 14:56 | PQF ---
DATE: 07-03-18 ATTN: DR. SHOAIB RODAS Please exercise your independent, professional judgment in responding to the clarification form. Clinical indicators are provided on the bottom of this form for your review Please check appropriate box(s): [ ] NSTEMI (ND type I) [ x] NSTEMI due to Demand Ischemia (AMI Type II) [ ] Demand Ischemia without ND [ ] Other diagnosis [ ] Unable to determine In addition, please specify: Present on Admission (POA): [ x ] Yes [ ] No [ ] Unable to determine CLINICAL INDICATORS - SIGNS / SYMPTOMS / LABS H&P: HX OF HTN, CAD, HYPOTHYROIDISM, DYSLIPIDEMIA, ESRD; TROPONIN IS 18.5 AND CK-MB IS ONLY 2.4 H&P: GI BLEEDING, DEMAND ISCHEMIA CONSULT NOTE DR. GREENE 07-01-18: NON- ST SEGMENT ELEVATION MYOCARDIAL INFARCTION TYPE 2 W/O ANY SYMPTOMS OF CHEST DISCOMFORT, DIAPHORESIS, NAUSEA OR VOMITING PN DR. GASTELUM 07-02-18: GI BLEEDING, ACUTE NSTEMI TROPONIN: 07-01-18: 18.525, 17.691, 18.256 RISKS: H&P: HX OF HTN, CAD, HYPOTHYROIDISM, DYSLIPIDEMIA, ESRD; TROPONIN IS 18.5 AND CK-MB IS ONLY 2.4 TREATMENTS: ER: NITRO TOP, LASIX IV CARDIOLOGY CONSULT 07-01-18 ECHO 07-01-18 (This form is maintained as a part of the permanent medical record) 2014 [employer], [place]. All Rights Reserved HOME [email or web address] Office: [phone] [facility]
--- NOTE | 2018-07-03 16:04 | PRG ---
DATE OF SERVICE: 07/03/2018 SERVICE: Pulmonary Medicine. INTERVAL HISTORY: The patient is doing really well from respiratory standpoint. Breathing comfortably. He has been weaned down to room air. He has no complaints of chest discomfort or shortness of breath. Otherwise, there has been no interval change to his condition. PHYSICAL EXAMINATION: VITAL SIGNS: Afebrile, pulse 66, blood pressure 146/90, respirations 19, and saturation 99% on room air. GENERAL: The patient is awake and alert, in no apparent distress. LUNGS: Decent air entry. Dependent crackles are present. HEART: Normal rate and regular. ABDOMEN: Soft, nontender, and nondistended. Bowel sounds are positive. MUSCULOSKELETAL: No cyanosis or clubbing. The pitting edema has resolved. NEUROLOGIC: Grossly nonfocal. LABORATORY DATA: Hemoglobin 7.3 and gently downtrending. Creatinine 5.04. Basic metabolic profile is otherwise unremarkable. ASSESSMENT: 1. Acute blood loss anemia. 2. Acute hypoxic respiratory failure. 3. End-stage renal disease. 4. Evd-EV-fmkhlkfzw myocardial infarction. 5. 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 6. Negative EGD and colonoscopy for source of bleeding. DISCUSSION AND PLAN: The patient is doing fine from a respiratory standpoint. He has been weaned down to room air. At this point, he has no further requirements for inpatient Pulmonary or Critical Care opinion, and I will sign off. If he has further decline in function, please give me a phone call. Job ID: [id number]
[2018-07-04 08:02] LABS: #Eosinphils 0.3 thou/uL (0.0-0.7); #Lymphocytes 0.5 thou/uL (1.20-3.40); #Monocytes 0.5 thou/uL (0.11-0.59); #Neutrophils 3.8 thou/uL (1.40-6.50); %Basophils 0.1 % (0.0-1.0); %Eosinophils 5.8 % (0.0-10.0); %Lymphocytes 9.8 % (21.0-51.0); %Monocytes 9.6 % (0.0-10.0); %Neutrophils 74.7 % (42.0-75.0); Hemoglobin 7.5 g/dL (14.0-18.0); Mean Corpuscular HGB CONC 32.6 g/dL (32.0-36.0); Mean Corpuscular Hemoglobin 31.1 pg (27.0-31.0); Mean Corpuscular Volume 95.4 fL (78.0-98.0); Mean Platelet Volume 10.3 fL (7.4-10.4); Platelet Count 128 thou/uL (130-400); RBC Distribution Width 18.2 % (11.5-14.5); White Blood Cell (WBC) Count 5.1 thou/uL (4.8-10.8)
--- NOTE | 2018-07-04 08:09 | PRG ---
DATE OF SERVICE: 07/04/2018 SUBJECTIVE: Mr. Colindres is an 82-year-old black male with ESRD. We are following him up for his maintenance hemodialysis. I have scheduled him for his dialysis this a.m. Please note we are using heparin-free dialysis due to the recent GI bleed. Chemical Dependency Therapist has evaluated the patient. He has undergone an upper and lower GI endoscopy. No other complaints today. He is feeling well. No chest pain or shortness of breath. OBJECTIVE: VITAL SIGNS: Blood pressure 100/55, heart rate 71, respiratory rate 18, temperature 98.2, and pulse ox 99%. GENERAL: The patient is noted to be awake, alert, comfortable, adequate turgor. HEENT: Slightly pale conjunctivae. Anicteric sclerae. NECK: No neck mass. No carotid bruits. No JVD. CHEST: No deformities. LUNGS: Clear breath sounds. HEART: Normal sinus rhythm. No murmur. No gallops. No rubs. abdomen: Globular, soft, and nontender. No masses. EXTREMITIES: No edema. No deformities. MEDICATIONS: Medications of July 04, 2018, reviewed. LABORATORY DATA: On July 03, 2018; white count 5.6 and hemoglobin 7.3. Sodium 144, potassium 3.5, chloride 100, carbon dioxide 29, BUN 38, creatinine 5.04, glucose 80, and calcium 8.1. ASSESSMENT AND PLAN: 1. Status post gastrointestinal bleed-stable, continuing weekly Epogen. In addition, we will give p.r.n. blood transfusion for hemoglobin less than 7. Repeat CBC is currently pending. 2. End-stage renal disease, stable. We will continue heparin-free hemodialysis. Fluid removal only as tolerated by the patient. No changes will be made with the current hemodialysis regimen. Overall, agree with current management. Recheck CBC in a.m. Job ID: [id number]
[2018-07-04 08:22] LABS: ALT (SGPT) 16 U/L (8-55); AST (SGOT) 28 U/L (5-34); Albumin 3.1 g/dL (3.4-4.8); Alkaline Phosphatase 72 U/L (40-150); Anion Gap 16 mmol/L (10-20); BUN (Urea Nitrogen) 54 mg/dL (8.4-25.7); Bilirubin, Total 0.5 mg/dL (0.2-1.2); Calc. Creatinine Clearance 9 mL/min (70-130); Calcium 7.9 mg/dL (7.8-10.44); Carbon Dioxide 32 mmol/L (23-31); Chloride 95 mmol/L (98-107); Estimated GFR-MDRD 9; Globulin 3.1 g/dL (2.4-3.5); Glucose 100 mg/dL (83-110); Potassium 3.5 mmol/L (3.5-5.1); Protein, Total 6.2 g/dL (5.8-8.1); Sodium 139 mmol/L (136-145)
[2018-07-04] MEDS: Pantoprazole 40 MG VIAL IVP SCH (08:22)
--- NOTE | 2018-07-04 12:05 | PDOC.PN ---
- Subjective Encounter Start Date: 07/04/18 Encounter Start Time: 09:20 Subjective: is getting HD, no sob or abd pain - Objective Resuscitation Status - Order Detail: 07/01/18 09:16 Resuscitation Status Routine Resuscitation Status: FULL: Full Resuscitation MAR Reviewed: Yes Vital Signs & Weight: Vital Signs (12 hours) Temp Pulse Resp BP BP Pulse Ox 07/04/18 07:10 97.8 F 58 L 18 132/79 100 07/04/18 04:00 98.2 F 71 18 100/55 L 99 Weight Admit Weight 174 lb 10.88 oz Weight 174 lb 10.88 oz Most Recent Monitor Data Heart Rate from ECG 80 NIBP 157/89 NIBP BP-Mean 111 Respiration from ECG 24 SpO2 100 I&O: 07/03/18 07/04/18 07/05/18 06:59 06:59 06:59 Intake Total 2570 200 Output Total 0 Balance 2570 200 Result Diagrams: 07/04/18 07:51 07/04/18 07:51 Phys Exam - Physical Examination HEENT: PERRLA, sclera anicteric Neck: no JVD, supple Respiratory: no wheezing rhonchi+ Cardiovascular: RRR, no significant murmur has ant chest wall veins visible Gastrointestinal: soft, positive bowel sounds Musculoskeletal: pulses present, edema present Neurological: non-focal, moves all 4 limbs Dx/Plan (1) Anemia due to blood loss, acute Code(s): D62 - ACUTE POSTHEMORRHAGIC ANEMIA Status: Acute (2) CAD (coronary artery disease) Code(s): I25.10 - ATHSCL HEART DISEASE OF [place] CORONARY ARTERY W/O ANG PCTRS Status: Chronic Qualifiers: Coronary Disease-Associated Artery/Lesion type: [place] artery [place] vs. transplanted heart: [place] heart Associated angina: without angina Qualified Code(s): I25.10 - Atherosclerotic heart disease of [place] coronary artery without angina pectoris (3) Cardiomyopathy Code(s): I42.9 - CARDIOMYOPATHY, UNSPECIFIED Status: Chronic Qualifiers: Cardiomyopathy type: ischemic Qualified Code(s): I25.5 - Ischemic cardiomyopathy Comment: ef of 20% (4) GI bleeding Code(s): K92.2 - GASTROINTESTINAL HEMORRHAGE, UNSPECIFIED Status: Suspected (5) Anemia of renal disease Code(s): D63.1 - ANEMIA IN CHRONIC KIDNEY DISEASE Status: Chronic (6) BPH (benign prostatic hyperplasia) Code(s): N40.0 - BENIGN PROSTATIC HYPERPLASIA WITHOUT LOWER URINRY TRACT SYMP Status: Chronic Qualifiers: Lower urinary tract symptom presence: unspecified whether lower urinary tract symptoms present Qualified Code(s): N40.0 - Benign prostatic hyperplasia without lower urinary tract symptoms (7) ESRD (end stage renal disease) on dialysis Code(s): N18.6 - END STAGE RENAL DISEASE; Z99.2 - DEPENDENCE ON RENAL DIALYSIS Status: Chronic Comment: Plan for HD per Nephrology (8) Hypertension Code(s): I10 - ESSENTIAL (PRIMARY) HYPERTENSION Status: Chronic Qualifiers: Hypertension type: essential hypertension Qualified Code(s): I10 - Essential (primary) hypertension (9) Mitral regurgitation and aortic stenosis Code(s): I08.0 - RHEUMATIC DISORDERS OF BOTH MITRAL AND AORTIC VALVES Status: Chronic Comment: non rheumatic - Plan needs extra fluid removal with HD, sbp around 100 this am -: h/h holding up, will get epogen per HD protocol -: may hold/remove clonidine patch if sbp drops further -: oral protonix bid -: has low sbp, +ve fluid balance, likely dc plan Saturday/? * . Review of Systems - Medications/Allergies Allergies/Adverse Reactions: Allergies Allergy/AdvReac Type Severity Reaction Status Date / Time No Known Drug Allergies Allergy Verified 01/03/17 11:35 Medications: Current Medications Acetaminophen (Tylenol) 650 mg PO Q4H PRN PRN Reason: Headache/Fever/Mild Pain (1-3) Last Admin: 07/04/18 08:21 Dose: 650 mg Clonidine (Edndwcqk-Esy-2) 0.3 mg TD Q7D [facility] Last Admin: 07/01/18 20:03 Dose: 0.3 mg Hydralazine HCl (Apresoline) 10 mg SLOW IVP Q4H PRN PRN Reason: SBP > 180 Last Admin: 07/01/18 20:01 Dose: 10 mg Ondansetron HCl (Zofran Odt) 4 mg PO Q6H PRN PRN Reason: Nausea/Vomiting Pantoprazole Sodium (Protonix) 40 mg PO BID [facility] Zolpidem Tartrate (Ambien) 5 mg PO HSPRN PRN PRN Reason: Insomnia
[2018-07-05 04:02] LABS: #Eosinphils 0.3 thou/uL (0.0-0.7); #Lymphocytes 0.5 thou/uL (1.20-3.40); #Monocytes 0.6 thou/uL (0.11-0.59); #Neutrophils 4.2 thou/uL (1.40-6.50); %Basophils 0.1 % (0.0-1.0); %Eosinophils 4.9 % (0.0-10.0); %Lymphocytes 9.4 % (21.0-51.0); %Neutrophils 75.7 % (42.0-75.0); Hemoglobin 7.5 g/dL (14.0-18.0); Mean Corpuscular HGB CONC 31.6 g/dL (32.0-36.0); Mean Corpuscular Hemoglobin 30.3 pg (27.0-31.0); Mean Corpuscular Volume 95.8 fL (78.0-98.0); Mean Platelet Volume 10.5 fL (7.4-10.4); Platelet Count 124 thou/uL (130-400); RBC Distribution Width 17.9 % (11.5-14.5); Red Blood Cell (RBC) Count 2.49 mill/uL (4.70-6.10); White Blood Cell (WBC) Count 5.5 thou/uL (4.8-10.8)
[2018-07-05] MEDS ORDERED: Epoetin (ESRD) 20,000 UNITS/ML SC SCH (11:15)
--- NOTE | 2018-07-05 11:29 | PDOC.PN ---
- Subjective Encounter Start Date: 07/05/18 Encounter Start Time: 11:28 Patient seen and examined, no new issues or complaints. - Objective Resuscitation Status - Order Detail: 07/01/18 09:16 Resuscitation Status Routine Resuscitation Status: FULL: Full Resuscitation Vital Signs & Weight: Vital Signs (12 hours) Temp Pulse Resp BP BP Pulse Ox 07/05/18 07:45 98.5 F 65 18 158/95 H 96 07/05/18 04:00 98.3 F 57 L 20 134/60 98 07/04/18 23:53 98.4 F 60 18 135/84 98 Weight Admit Weight 174 lb 10.88 oz Weight 156 lb Most Recent Monitor Data Heart Rate from ECG 80 NIBP 157/89 NIBP BP-Mean 111 Respiration from ECG 24 SpO2 100 I&O: 07/04/18 07/05/18 07/06/18 06:59 06:59 06:59 Intake Total 200 660 360 Output Total 2500 Balance 200 -1840 360 Result Diagrams: 07/05/18 03:30 07/04/18 07:51 Phys Exam - Physical Examination Constitutional: NAD HEENT: PERRLA, moist MMs, sclera anicteric Neck: no nodes, no JVD, supple Respiratory: no wheezing, no rales, no rhonchi Cardiovascular: RRR, no rub systolic ejection murmur Gastrointestinal: soft, non-tender, no distention Musculoskeletal: pulses present, edema present (trace) Dx/Plan (1) Anemia due to blood loss, acute Code(s): D62 - ACUTE POSTHEMORRHAGIC ANEMIA Status: Acute (2) NSTEMI (non-ST elevated myocardial infarction) Code(s): I21.4 - NON-ST ELEVATION (NSTEMI) MYOCARDIAL INFARCTION Status: Acute (3) CAD (coronary artery disease) Code(s): I25.10 - ATHSCL HEART DISEASE OF [place] CORONARY ARTERY W/O ANG PCTRS Status: Chronic Qualifiers: Coronary Disease-Associated Artery/Lesion type: [place] artery [place] vs. transplanted heart: [place] heart Associated angina: without angina Qualified Code(s): I25.10 - Atherosclerotic heart disease of [place] coronary artery without angina pectoris (4) ESRD (end stage renal disease) Code(s): N18.6 - END STAGE RENAL DISEASE Status: Chronic (5) HTN (hypertension) Code(s): I10 - ESSENTIAL (PRIMARY) HYPERTENSION Status: Chronic Qualifiers: Hypertension type: essential hypertension Qualified Code(s): I10 - Essential (primary) hypertension (6) GI bleeding Code(s): K92.2 - GASTROINTESTINAL HEMORRHAGE, UNSPECIFIED Status: Suspected (7) Hypertension Code(s): I10 - ESSENTIAL (PRIMARY) HYPERTENSION Status: Chronic Qualifiers: Hypertension type: essential hypertension Qualified Code(s): I10 - Essential (primary) hypertension - Plan * pending rehab placement * cont current plan of care * HD per renal for MWF * labs stable * vitals stable * case and plan d/w patient at length, as well as his daughter, they both understood and agreed with this plan.
[2018-07-05] MEDS ORDERED: EPOETIN ALFA-EPBX (ESRD) 4,000 UNIT/ML VIAL SC SCH (12:00)
--- NOTE | 2018-07-05 12:36 | PRG ---
DATE OF SERVICE: 07/05/2018 SERVICE: Renal Medicine. SUBJECTIVE: Mr. Colindres is an 82-year-old black male with ESRD followed by the Renal Service for his maintenance hemodialysis. He underwent hemodialysis yesterday without any difficulty. The patient denies any new complaints today. He is feeling better. He was initially admitted for GI bleed. He has undergone an upper and lower GI endoscopy. Dr. Rodriguez is following. No other complaints today. No chest pain or shortness of breath. OBJECTIVE: VITAL SIGNS: Blood pressure 158/95, heart rate 65, respiratory rate 18, temperature 98.5, and pulse ox 96%. GENERAL: Awake, alert, comfortable, not in overt distress. SKIN: Adequate turgor. HEENT: Slightly pale conjunctivae. Anicteric sclerae. No neck mass. No carotid bruits. No JVD. CHEST: No deformities. LUNGS: Clear breath sounds. HEART: Normal sinus rhythm. No murmur. No gallops or rubs. ABDOMEN: Globular, soft, nontender. No masses. EXTREMITIES: No edema. No deformities. MEDICATIONS: Medications of July 05, 2018, were reviewed. LABORATORY DATA: Laboratories of July 05, 2018, white count 5.5, hemoglobin 7.5. On July 04, 2018, BUN 54, creatinine 6.85. ASSESSMENT AND PLAN: 1. Status post gastrointestinal bleed, stable. On p.r.n. blood transfusion. Hemoglobin was noted at 7.5, and he seems to be stabilizing. 2. Chronic anemia - we will consider placing him on a regular Epogen regimen. I will probably give him 10,000 units subcu q.week starting today. 3. End-stage renal disease, stable, continuing heparin free hemodialysis. Tolerating said treatment. Heparin will be in hold indefinitely due to the recent gastrointestinal bleed. Overall, agree with current management. Recheck CBC in a.m. Job ID: [id number]
--- NOTE | 2018-07-05 16:01 | PDOC.CTH ---
Cardiology Progress Note - Subjective No new issues. He has been havimng coffee grounds - Objective Vital Signs Temp Pulse Resp BP BP Pulse Ox 07/05/18 12:20 99.5 F 65 18 119/71 96 07/05/18 07:45 98.5 F 65 18 158/95 H 96 07/05/18 04:00 98.3 F 57 L 20 134/60 98 Admit Weight 174 lb 10.88 oz Weight 156 lb 07/04/18 07/05/18 07/06/18 06:59 06:59 06:59 Intake Total 200 660 360 Output Total 2500 Balance 200 -1840 360 - Physical Examination General/Neuro: alert & oriented x3, NAD Neck: no JVD present Lungs: CTA, unlabored respirations Heart: RRR Abdomen: NT/ND Extremities: + edema B (trace) - Telemetry Telemetry Rhythm: NSR - Labs Result Diagrams: 07/05/18 03:30 07/04/18 07:51 Troponin/CKMB CK-MB (CK-2) 2.4 ng/mL (0-6.6) 07/01/18 05:53 Troponin I 18.256 ng/mL (< 0.028) H* 07/01/18 12:51 - Assessment/Plan 1. Type 2 NH, demand ischemia 2. Acute blood loss anemia. 3. ESRD 4. Hx of CAD, stent to RCA. 5. PVD with totally occluded right Carotid. PLAN: - Asymptomatic from cardiac standpoint - No new recs.
[2018-07-05 16:36] VITALS: BP 133/85; TEMP 98.4
--- NOTE | 2018-07-06 11:10 | PDOC.EVN ---
Event Note - Event Note Event Note: D/C SUMMARY #[id number]
--- NOTE | 2018-07-06 11:49 | DIS ---
DATE OF ADMISSION: 07/01/2018 DATE OF DISCHARGE: 07/05/2018 ADMITTING DIAGNOSES: Gastrointestinal bleed, demand ischemia, history of coronary artery disease, hypertension, and end-stage renal disease. DISCHARGE DIAGNOSES: Gastrointestinal bleed, stable; anemia, stable; dku-TS-hiohybrig myocardial infarction secondary to demand and loss of blood, stable; history of coronary artery disease, stable; hypertension, stable; and end-stage renal disease, stable. HOSPITAL COURSE: This is an 82-year-old male, who presents to the hospital with GI bleed. The patient was admitted to Internal Medicine Team, was seen by Gastroenterology, Pulmonary/Critical Care as well as Cardiology. The patient was admitted to Internal Medicine Team, had an EGD done. The patient was noted to have normal gastroscopy. Duodenal bulb noted to have hyperpigmented lesion, likely secondary to melanosis. No pathology seen that was explanatory of the GI tract for bleeding. The patient also had a colonoscopy done, where the patient was noted to have diverticular disease as well as large sessile polyps, which were removed. The patient's GI bleeding was resolved. At the point in time of discharge, the patient's hemoglobin was stable, had gone up from 7.3 to 7.5. At the point in time of discharge, the patient denied any nausea, vomiting, diarrhea, constipation, chest pain, fevers, or shortness of breath. Received dialysis treatments as appropriate per Nephrology Services. The patient also was noted to have no black tarry stools or bright red blood per rectum. At the point in time of discharge, the patient's condition was stable. Arrangements were made for the patient to go to rehab. The patient was discharged to rehab once arrangements were made. All appropriate medications were given. Case and plan discussed with the patient as well as his daughter at length. They understood and agreed with this plan. DISPOSITION: Rehab. MEDICATIONS: See MAR. ACTIVITY: As tolerated with assistance as needed. DIET: Low-fat, low-calorie, high-fiber diet. CONDITION: Stable. PROGNOSIS: Guarded. Once again, case and plan discussed with the patient and family at length. They understood and agreed with this plan. Job ID: [id number]
--- NOTE | 2018-07-07 07:46 | PRG ---
DATE OF SERVICE: 07/03/2018 SUBJECTIVE: This is an 82-year-old male with GI bleeding, anemia due to blood loss. He also found to have chronic kidney disease and has had EGDs and colonoscopies from before. The patient has had and found to have . He underwent an EGD, which revealed no active bleeding . A colonoscopy showed occasional diverticular disease, radiation proctitis and hemorrhoids, and also he had three large . Through the night and today he has had no blood in his stool. He is awake, alert, and communicative. He denied abdominal pain. . OBJECTIVE: VITAL SIGNS: Stable. GENERAL: He is awake, alert, and communicative. CARDIOVASCULAR: Within normal limits. LUNGS: Within normal limits. ABDOMEN: Soft. Abdomen is nontender. No organomegaly or masses. LABORATORY DATA: The lab data from this morning shows hemoglobin down to 7.3. RECOMMENDATIONS: 1. Follow up H and H. 2. Transfuse p.r.n. 3. Diet as tolerated. Job ID: [id number]
== END 2018-07-05 18:00 | DRG 280 ==
LOC: ERS 05:05 → CCU 09:00 → 2NO 07-02 16:15
PROVIDERS: ADMIT Internal Medicine; ATTEND Internal Medicine
PROC: 5A1D70Z Performance of Urinary Filtration, Intermittent, Less than 6 Hours Per Day (ICD-10-PCS; principal; 2018-07-01)
PROC: 0DBM8ZZ Excision of Descending Colon, Via Natural or Artificial Opening Endoscopic (ICD-10-PCS; 2018-07-01)
PROC: 0DBN8ZZ Excision of Sigmoid Colon, Via Natural or Artificial Opening Endoscopic (ICD-10-PCS; 2018-07-01)
PROC: 0DJ08ZZ Inspection of Upper Intestinal Tract, Via Natural or Artificial Opening Endoscopic (ICD-10-PCS; 2018-07-01)
DX: I21.A1 Myocardial infarction type 2 (principal); N18.6 End stage renal disease; I50.23 Acute on chronic systolic (congestive) heart failure; J96.01 Acute respiratory failure with hypoxia; I13.2 Hypertensive heart and chronic kidney disease with heart failure and with stage 5 chronic kidney disease, or end stage renal disease; N25.81 Secondary hyperparathyroidism of renal origin; D62 Acute posthemorrhagic anemia; K62.7 Radiation proctitis; D12.4 Benign neoplasm of descending colon; D12.5 Benign neoplasm of sigmoid colon; E03.9 Hypothyroidism, unspecified; F32.9 Major depressive disorder, single episode, unspecified; D63.1 Anemia in chronic kidney disease; N40.0 Benign prostatic hyperplasia without lower urinary tract symptoms; K21.9 Gastro-esophageal reflux disease without esophagitis; M19.90 Unspecified osteoarthritis, unspecified site; C61 Malignant neoplasm of prostate; I25.10 Atherosclerotic heart disease of native coronary artery without angina pectoris; E78.00 Pure hypercholesterolemia, unspecified; I25.5 Ischemic cardiomyopathy; I78.1 Nevus, non-neoplastic; I08.0 Rheumatic disorders of both mitral and aortic valves; Z99.2 Dependence on renal dialysis; Z87.891 Personal history of nicotine dependence; Z79.82 Long term (current) use of aspirin; Z79.899 Other long term (current) drug therapy
CPT/HCPCS: 36416; 36430; 36556; 71045; 80048; 80053; 82553; 82805; 84484; 85025; 85610; 85730; 86850; 86900; 86901; 88305; 90935; 93005; 93306; 94760; 96374; C9113; G0257; J0360; J1940; P9016; Q5105

== ENCOUNTER 2018-08-03 20:40 | Inpatient (IN) | payer MEDICARE, BC ==
[2018-08-03] MEDS ORDERED: Nitroglycerin 2% Ointment 1 INCH/1 GM Packet ONE (20:55)
--- NOTE | 2018-08-03 22:05 | RAD ---
PORTABLE CHEST: HISTORY: Dyspnea. COMPARISON: 07/07/2018 FINDINGS: Cardiomegaly. Vascular congestion. Bilateral effusions and bibasilar atelectasis or infiltrates. Similar findings were noted on 07/07/2018. IMPRESSION: Cardiomegaly with vascular congestion, bilateral effusions, and bibasilar infiltrates. POS: [facility]
[2018-08-03 22:12] LABS: #Eosinphils 0.3 thou/uL (0.0-0.7); #Lymphocytes 0.7 thou/uL (1.20-3.40); #Monocytes 1.1 thou/uL (0.11-0.59); #Neutrophils 5.7 thou/uL (1.40-6.50); %Basophils 0.2 % (0.0-1.0); %Eosinophils 3.7 % (0.0-10.0); %Lymphocytes 8.6 % (21.0-51.0); %Monocytes 13.6 % (0.0-10.0); %Neutrophils 73.9 % (42.0-75.0); Hemoglobin 8.6 g/dL (14.0-18.0); Mean Corpuscular HGB CONC 31.7 g/dL (32.0-36.0); Mean Corpuscular Hemoglobin 30.7 pg (27.0-31.0); Mean Corpuscular Volume 96.9 fL (78.0-98.0); Mean Platelet Volume 9.8 fL (7.4-10.4); Platelet Count 150 thou/uL (130-400); RBC Distribution Width 17.1 % (11.5-14.5); Red Blood Cell (RBC) Count 2.78 mill/uL (4.70-6.10); White Blood Cell (WBC) Count 7.7 thou/uL (4.8-10.8)
[2018-08-03 22:19] LABS: ALT (SGPT) 20 U/L (8-55); AST (SGOT) 16 U/L (5-34); Albumin 3.6 g/dL (3.4-4.8); Alkaline Phosphatase 119 U/L (40-150); Anion Gap 20 mmol/L (10-20); BUN (Urea Nitrogen) 47 mg/dL (8.4-25.7); Bilirubin, Total 0.5 mg/dL (0.2-1.2); CK (CPK) 97 U/L (30-200); Calc. Creatinine Clearance 0 mL/min (70-130); Calcium 7.8 mg/dL (7.8-10.44); Carbon Dioxide 30 mmol/L (23-31); Chloride 93 mmol/L (98-107); Estimated GFR-MDRD 10; Glucose 126 mg/dL (83-110); Potassium 4.5 mmol/L (3.5-5.1); Protein, Total 6.6 g/dL (5.8-8.1); Sodium 138 mmol/L (136-145)
[2018-08-03] MEDS ORDERED: Aspirin 325 MG TAB ONE (22:38)
[2018-08-03 22:44] LABS: CKMB 2.6 ng/mL (0-6.6)
[2018-08-03 23:59] VITALS: BMI 23.5
[2018-08-04 00:54] LABS: Critical Call Chem Troponin I RESULT DECREASING; Troponin I 0.327 ng/mL (< 0.028)
[2018-08-04] MEDS ORDERED: Ondansetron PF 4 MG/2 ML Vial IVP PRN (02:38)
[2018-08-04] MEDS ORDERED: hydrALAZINE 20 MG/ML VIAL SLOW IVP PRN (02:38)
[2018-08-04] MEDS ORDERED: Acetaminophen 500 MG TAB PO PRN (02:38)
[2018-08-04] MEDS ORDERED: Ondansetron ODT 4 MG TAB PO PRN (02:38)
[2018-08-04] MEDS ORDERED: cloNIDine 0.3mg/24 Hour PATCH TD SCH (02:45)
[2018-08-04] MEDS ORDERED: Nitroglycerin 2% Ointment 1 INCH/1 GM Packet TOP SCH (03:00)
--- NOTE | 2018-08-04 03:30 | HP ---
PRIMARY CARE PROVIDER: Dr. Villasenor. CHIEF COMPLAINT: Shortness of breath. HISTORY OF PRESENT ILLNESS: This is an 82-year-old male, who presents to [facility] Emergency Department in transfer from [facility], where the patient is a current resident. The patient was transported to the emergency room for increased shortness of breath for approximately 2 hours prior to evaluation in the emergency room. The patient was placed on oxygen supplementation at the long term without specific improvement in respiratory status. The patient with significant history of end-stage renal disease with current hemodialysis on Saturday, Saturday, Saturday without a reported incident of missing hemodialysis. The patient was recently admitted to [facility] from 07/01 to 07/06/2018 for a gastrointestinal bleed of unclear etiology with associated non-ST elevation myocardial infarction. The patient was medically managed and transferred to the [facility] for further convalescence and therapy. In the emergency room, the patient underwent general evaluation including chest imaging showing pulmonary edema with cardiomegaly and bilateral pleural effusions. The patient received aspirin 325 mg x1 dose in addition to DuoNeb and transdermal nitroglycerin. PAST MEDICAL HISTORY: 1. Status post gastrointestinal bleeding of unclear etiology. 2. Status post non-ST elevation myocardial infarction. 3. Coronary artery disease. 4. Hypertension. 5. End-stage renal disease with hemodialysis on Saturday, Saturday, and Saturday. 6. Hypertension. 7. Deconditioning. 8. History of prostate cancer. PAST SURGICAL HISTORY: Status post hemodialysis catheter placement. CURRENT MEDICATIONS: 1. Gabapentin 300 mg p.o. t.i.d. 2. Sensipar 30 mg p.o. daily. 3. Clonidine 0.1 mg p.o. q.6 hours p.r.n. systolic blood pressure greater than or equal to 180. 4. Aranesp 25 mcg subcutaneously q.7 days. 5. Gabapentin 300 mg p.o. t.i.d. 6. Reglan 5 mg p.o. q.a.m. 7. Metoprolol tartrate 75 mg p.o. b.i.d. 8. Nifedipine extended release 90 mg p.o. daily. 9. MiraLAX 17 g p.o. daily. 10. Renvela 1600 mg t.i.d. with meals. 11. Catapres TTS-3 of 0.3 mg transdermally q.7 days. 12. Isosorbide mononitrate 60 mg p.o. daily. 13. Protonix 40 mg p.o. b.i.d. 14. Ambien 5 mg p.o. at bedtime p.r.n. insomnia. ALLERGIES: NO KNOWN DRUG ALLERGIES. FAMILY HISTORY: Positive for hypertension. SOCIAL HISTORY: The patient resides at [facility]. No current alcohol, tobacco, or illicit drug use. REVIEW OF SYSTEMS: Unobtainable due to the patient's altered mental status and inability to provide a coherent history. PHYSICAL EXAMINATION: VITAL SIGNS: On admission, blood pressure 119/66, pulse 53, respiratory rate 16, temperature 98.8 degrees Fahrenheit, O2 saturation 96% on 3 L/minute by nasal cannula. GENERAL APPEARANCE: This is an 82-year-old male, lethargic, opens eyes briefly to name, in mild respiratory distress. HEENT: Pupils are equal, round, reactive to light and accommodation. Extraocular muscles are intact. No scleral icterus. No conjunctival injection. Nares patent. OP is clear. NECK: Supple. No cervical adenopathy. No thyromegaly. No carotid bruits. No JVD appreciated. Cervical spine with full active and passive range of motion. No meningeal signs noted. CHEST: Diminished breath sounds bilaterally with coarse rhonchi bilaterally. Expiratory wheezing noted. CARDIOVASCULAR: S1 and S2 with 2/6 systolic ejection murmur in the right upper sternal border. ABDOMEN: Rounded, soft, nontender, and nondistended. Bowel sounds are positive in all 4 quadrants. There is no hepatosplenomegaly. No abdominal bruits. No rebound or guarding appreciated. EXTREMITIES: Warm and dry with fair turgor. Left upper extremity AV fistula in place. No lower extremity asymmetric edema appreciated. Pulses palpable distally at the dorsalis pedis, posterior tibial, and popliteal arteries bilaterally. Capillary refill less than 2 seconds. NEUROLOGICAL: Cranial nerves 2 through 12 are grossly intact. Alert and oriented x2. PERTINENT LABORATORY AND X-RAY FINDINGS: Sodium 138, potassium 4.5, chloride 93, CO2 30, BUN 47, creatinine 6.57, estimated GFR of 10, glucose 126, calcium 7.8. LFTs within normal limits. Troponin I ranged between 0.327 to 0.356. BNP 12,864, previously noted 2641 on 11/06/2016. CBC showed a white blood cell count of 7.7, hemoglobin 8.6, hematocrit 27, platelet count 150 with 74% neutrophils. Portable chest x-ray dated 08/03/2018, showed cardiomegaly with pulmonary vascular prominence with associated bilateral pleural effusions and bibasilar infiltrates. EKG dated 08/03/2018, by my interpretation shows sinus mechanism with heart rates in the 60s. Attenuated R-waves noted in the precordial leads. Left axis deviation noted. No acute ST-T wave changes appreciated. ASSESSMENT/PLAN: 1. Acute hypoxic respiratory failure. Suspect multifactorial including pulmonary edema in the context of end-stage renal disease and systolic congestive heart failure. Continue oxygen supplementation to maintain O2 saturations greater than or equal to 90%. 2. Volume overload secondary to end-stage renal disease. We will consult Nephrology Service for hemodialysis and volume removal. 3. Acute on chronic systolic congestive heart failure exacerbation. We will continue general supportive management. Consult Nephrology Service for hemodialysis. Most recent 2D transthoracic echocardiogram on 07/01/2018, showed ejection fraction of 20% to 25%. Moderate to severe aortic stenosis also noted during the study. 4. Elevated troponin I secondary to demand ischemia. No current evidence to suggest non-ST elevation myocardial infarction. Chronic troponin elevation due to end-stage renal disease. 5. Chronic normocytic anemia. Suspect secondary to chronic kidney disease. No current evidence to suggest acute blood loss. Repeat CBC in the a.m. 6. Prophylaxis. SCDs while in bed. Pepcid 20 mg p.o. b.i.d. 7. Code status, full. Surrogate medical decision maker is the patient's daughter, Rayna Sequeira. Job ID: [id number]
[2018-08-04 04:01] LABS: Band 5 % (5-11); Eosinophils 2 % (0-10); Hemoglobin 7.6 g/dL (14.0-18.0); Lymphocytes 10 % (21-51); MDiff Complete? YES; Mean Corpuscular HGB CONC 32.6 g/dL (32.0-36.0); Mean Corpuscular Hemoglobin 31.5 pg (27.0-31.0); Mean Corpuscular Volume 96.6 fL (78.0-98.0); Mean Platelet Volume 9.6 fL (7.4-10.4); Monocytes 11 % (0-10); Neutrophil 71 % (42-75); Platelet Count 112 thou/uL (130-400); Platelet Morphology Comment Appears Decreased; RBC Distribution Width 16.9 % (11.5-14.5); Red Blood Cell (RBC) Count 2.43 mill/uL (4.70-6.10); White Blood Cell (WBC) Count 4.7 thou/uL (4.8-10.8)
[2018-08-04 04:11] LABS: Anion Gap 14 mmol/L (10-20); BUN (Urea Nitrogen) 49 mg/dL (8.4-25.7); Calc. Creatinine Clearance 10 mL/min (70-130); Calcium 7.8 mg/dL (7.8-10.44); Carbon Dioxide 35 mmol/L (23-31); Chloride 94 mmol/L (98-107); Estimated GFR-MDRD 10; Glucose 103 mg/dL (83-110); Magnesium 2.2 mg/dL (1.6-2.6); Potassium 4.6 mmol/L (3.5-5.1); Sodium 138 mmol/L (136-145)
[2018-08-04 04:17] LABS: Critical Call Chem Troponin I RESULT DECREASING; Troponin I 0.305 ng/mL (< 0.028)
[2018-08-04] MEDS: Metoprolol Tartrate 50 MG TAB PO SCH ×2 (08:44→16:34)
[2018-08-04] MEDS ORDERED: Epoetin (ESRD) 20,000 UNITS/ML SC SCH (08:45)
[2018-08-04] MEDS: Sevelamer Carbonate 800 MG TAB PO SCH ×3 (08:47→18:20)
[2018-08-04] MEDS: Cinacalcet HCl 30 MG TAB PO SCH (08:48)
[2018-08-04] MEDS: Gabapentin 300 MG CAP PO SCH ×3 (08:48→19:57)
[2018-08-04] MEDS: Metoclopramide HCl 10 MG TAB PO SCH (08:48)
[2018-08-04] MEDS: Famotidine 20 MG TAB PO SCH (08:48)
[2018-08-04] MEDS: Polyethylene Glycol 3350 17 GM Packet PO SCH (08:49)
[2018-08-04] MEDS ORDERED: EPOETIN ALFA-EPBX (ESRD) 4,000 UNIT/ML VIAL SC SCH (09:00)
--- NOTE | 2018-08-04 09:57 | CON ---
DATE OF CONSULTATION: SERVICE: Renal Medicine. HISTORY OF PRESENT ILLNESS: Mr. Colindres is an 82-year-old black male, who is a assisted patient and admitted for shortness of breath. Chest x-ray suggests CHF. In addition, the patient as mentioned he felt that after the breathing treatment, we are now being consulted for his hemodialysis. I have scheduled him today for hemodialysis. We will max out fluid removal as tolerated. REVIEW OF SYSTEMS: No chest pain. Positive for mild shortness of breath. No nausea. No vomiting. No syncopal episode. No productive cough. No fever or chills. No abdominal pain. No gross hematuria. No hematochezia. No dysuria. No urinary frequency. No syncopal episode. MEDICATIONS: The patient is currently on; 1. Sensipar 30 mg daily. 2. Clonidine TTS 3 patch weekly. 3. Famotidine 20 mg tab q.a.m. 4. Gabapentin 300 mg p.o. t.i.d. 5. Hydralazine 10 mg IV q.4 p.r.n. 6. Imdur 60 mg q.a.m. 7. Reglan 5 mg q.a.m. 8. Metoprolol tartrate 75 mg b.i.d. 9. Nifedipine XL 90 mg q.a.m. 10. Zofran 4 mg IV q.6 p.r.n. 11. MiraLAX 17 g daily. 12. Renvela 800 mg 2 tablets t.i.d. with meals. PAST MEDICAL HISTORY: 1. ESRD - maintenance hemodialysis on Saturday, Saturday, and Saturday. 2. Status post CHF. 3. Status post GI bleed - rectal bleeding. 4. Longstanding hypertension. 5. Neuropathy. 6. BPH. 7. GERD. 8. Secondary hyperparathyroidism. 9. Status post osteomyelitis. 10. History of polycystic kidney disease. 11. History of colonic polyps - DJD. PAST SURGICAL HISTORY: Status post prostate biopsy, status post radiation therapy of the prostate, status post AV fistula placement, status post cuffed hemodialysis catheter placement, status post colectomy for colonic mass, status post lower GI endoscopy, status post upper GI endoscopy, and status post back surgery. SOCIAL HISTORY: The patient is a assisted patient. He is a , one child. Smoked for 20 years, half a pack a day. Retired [employer]. Status post multiple blood transfusion. Education, 9th grade. No IV drug abuse. FAMILY HISTORY: Positive family history of ESRD. ALLERGIES: NONE. TRAUMA: None. IMMUNIZATIONS: Up-to-date. HOSPITALIZATIONS: Please see past medical history. PHYSICAL EXAMINATION: VITAL SIGNS: Blood pressure is noted at 140/70, heart rate 78, and pulse ox 95%. GENERAL: Noted to be awake, comfortable, not in overt distress. SKIN: Adequate turgor. HEENT: Pale conjunctivae. Anicteric sclerae. NECK: No neck mass. No carotid bruits. No JVD. CHEST: No deformities. LUNGS: Decreased breath sounds. HEART: Normal sinus rhythm. No murmur. No gallops. No rubs. ABDOMEN: Globular, soft, and nontender. No masses. EXTREMITIES: No edema. No deformities. LABORATORY DATA: Laboratories of August 04, 2018; white count 4.7, hemoglobin 7.6. Sodium 138, potassium 4.6, chloride 94, carbon dioxide 35, BUN 49, creatinine 6.61, glucose 103, calcium 7.8, and magnesium 2.2. BNP is 12,863. IMAGING DATA: Chest x-ray, increased lung markings. ASSESSMENT AND PLAN: 1. Shortness of breath - multifactorial etiology. Consider a congestive heart failure versus ? of chronic obstructive pulmonary disease. We will max out fluid removal with dialysis today as tolerated by the patient. 2. End-stage renal disease. Continue Saturday, Saturday, and Saturday. I have not rule out an extra hemodialysis for fluid removal in a.m. Continue current dialysis regimen. Review of the last Kt/V suggests he is adequately dialyzed with the current dialysis regimen. 3. Anemia. Start weekly Epogen 7500 units subcu every week. 4. Hypertension. Continue current BP medications. Overall, prognosis remains guarded. Job ID: [id number]
[2018-08-04] MEDS: NIFEdipine XL 90 MG TAB PO SCH (13:17)
--- NOTE | 2018-08-04 14:08 | PDOC.EVN ---
Event Note - Event Note Event Note: pt seen and examined in dialysis. no new events and feels better chart reviewed in detail cont fluid removal as tolerated by HD.AM labs.Hemodynamically stable home meds as ordered .will follow
[2018-08-05] MEDS: Metoprolol Tartrate 50 MG TAB PO SCH (08:54)
[2018-08-05] MEDS: Cinacalcet HCl 30 MG TAB PO SCH (08:55)
[2018-08-05] MEDS: Sevelamer Carbonate 800 MG TAB PO SCH ×3 (08:55→17:32)
[2018-08-05] MEDS: Metoclopramide HCl 10 MG TAB PO SCH (08:56)
[2018-08-05] MEDS: Famotidine 20 MG TAB PO SCH (08:56)
[2018-08-05] MEDS: Gabapentin 300 MG CAP PO SCH ×3 (08:56→20:46)
[2018-08-05] MEDS: NIFEdipine XL 90 MG TAB PO SCH (08:57)
[2018-08-05] MEDS: Polyethylene Glycol 3350 17 GM Packet PO SCH (08:58)
--- NOTE | 2018-08-05 09:25 | PRG ---
DATE OF SERVICE: 08/05/2018 SUBJECTIVE: Mr. Colindres is an 82-year-old black male with ESRD, admitted for shortness of breath. He underwent hemodialysis with significant fluid removal yesterday. His breathing today is better. No other complaints today. No chest pain or shortness of breath. OBJECTIVE: VITAL SIGNS: Blood pressure 126/72, heart rate 59, respiratory rate 18, temperature 98.5, and pulse ox is 100%. GENERAL: The patient is awake, alert, comfortable, not in overt distress. SKIN: Adequate turgor. HEENT: He has slightly pale conjunctivae. Anicteric sclerae. NECK: No neck mass. No carotid bruits. No JVD. CHEST: No deformities. LUNGS: Decreased breath sounds. HEART: Normal sinus rhythm. No murmurs. No gallops. No rubs. ABDOMEN: Globular, soft, and nontender. No masses. EXTREMITIES: No edema. No deformities. MEDICATIONS: Medications of August 05, 2018, reviewed. LABORATORY DATA: Laboratories of August 04, 2018, white count 4.7, hemoglobin 7.6. Sodium 138, potassium 4.6, chloride 94, carbon dioxide 35, BUN 49, creatinine 6.61, calcium 7.8, and magnesium 2.2. ASSESSMENT AND PLAN: 1. Shortness of breath - multifactorial etiology, secondary to congestive heart failure. Fluid removal with dialysis was done with improvement of the shortness of breath. 2. End-stage renal disease, stable. We will continue current Saturday, Saturday, and Saturday hemodialysis. No heparin to minimal heparin use. Fluid removal again as tolerated by the patient. 3. Anemia. Recheck CBC. Epogen has been restarted with this patient. 4. Overall agree with current management. Job ID: [id number]
[2018-08-05 09:26] LABS: Hemoglobin 10.4 g/dL (14.0-18.0); Mean Corpuscular HGB CONC 31.2 g/dL (32.0-36.0); Mean Corpuscular Hemoglobin 30.6 pg (27.0-31.0); Mean Corpuscular Volume 97.9 fL (78.0-98.0); Mean Platelet Volume 10.8 fL (7.4-10.4); Platelet Count 114 thou/uL (130-400); RBC Distribution Width 16.9 % (11.5-14.5); Red Blood Cell (RBC) Count 3.39 mill/uL (4.70-6.10)
[2018-08-05 09:37] LABS: Anion Gap 18 mmol/L (10-20); BUN (Urea Nitrogen) 37 mg/dL (8.4-25.7); Calc. Creatinine Clearance 13 mL/min (70-130); Calcium 8.6 mg/dL (7.8-10.44); Carbon Dioxide 31 mmol/L (23-31); Chloride 93 mmol/L (98-107); Estimated GFR-MDRD 14; Glucose 84 mg/dL (83-110); Potassium 4.6 mmol/L (3.5-5.1); Sodium 137 mmol/L (136-145)
[2018-08-05 10:37] LABS: Band 1 % (5-11); Eosinophils 3 % (0-10); Lymphocytes 14 % (21-51); MDiff Complete? YES; Monocytes 10 % (0-10); Neutrophil 72 % (42-75); Platelet Morphology Comment Appears Decreased; Polychromasia SLIGHT = 2-3 cells (100X) (0-2/hpf)
[2018-08-05 12:13] LABS: Actual Bicarbonate (HCO3a) 33.5 mEq/L (22-28); Base Excess (BEa) 8.7 mEq/L (-2.0 to +3.0); CO2 Tension 47.9 mmHg (35.0-45.0); Calcium, Ionized 0.99 mmol/L (1.12-1.30); Carboxyhemoglobin (COHb) 2.7 gm% (0.0-3.0); Hemoglobin (Hb) 8.3 g/dL (14.0-18.0); O2 Tension (PaO2) 63.2 mmHg (> 60.0); Potassium - ABG Lab 4.65 mmol/L (3.70-5.30); pH, Arterial 7.46 (7.35-7.45)
[2018-08-05 12:14] LABS: ALV-art Gradient 62.305 (0-20); Puncture Site RRA
[2018-08-05 12:29] LABS: #Eosinphils 0.2 thou/uL (0.0-0.7); #Lymphocytes 0.6 thou/uL (1.20-3.40); #Monocytes 0.7 thou/uL (0.11-0.59); #Neutrophils 3.4 thou/uL (1.40-6.50); %Basophils 0.1 % (0.0-1.0); %Eosinophils 3.8 % (0.0-10.0); %Lymphocytes 11.8 % (21.0-51.0); %Monocytes 14.4 % (0.0-10.0); Hemoglobin 8.3 g/dL (14.0-18.0); Mean Corpuscular HGB CONC 31.1 g/dL (32.0-36.0); Mean Corpuscular Hemoglobin 30.6 pg (27.0-31.0); Mean Corpuscular Volume 98.5 fL (78.0-98.0); Mean Platelet Volume 9.9 fL (7.4-10.4); Platelet Count 128 thou/uL (130-400); RBC Distribution Width 16.6 % (11.5-14.5); Red Blood Cell (RBC) Count 2.69 mill/uL (4.70-6.10); White Blood Cell (WBC) Count 4.8 thou/uL (4.8-10.8)
--- NOTE | 2018-08-05 12:51 | RAD ---
AP view chest HISTORY: Respiratory distress. AP view chest demonstrates a left-sided pleural effusion. Cardiomegaly seen. Pulmonary vascular conge stion seen. A right subclavian and brachiocephalic endovascular stent is in place. IMPRESSION: left-sided pleural effusion and cardiomegaly with pulmonary vascular congestion seen.
[2018-08-05 12:54] LABS: ALT (SGPT) 18 U/L (8-55); AST (SGOT) 15 U/L (5-34); Albumin 3.3 g/dL (3.4-4.8); Alkaline Phosphatase 117 U/L (40-150); Anion Gap 16 mmol/L (10-20); BUN (Urea Nitrogen) 39 mg/dL (8.4-25.7); Bilirubin, Total 0.5 mg/dL (0.2-1.2); Calc. Creatinine Clearance 12 mL/min (70-130); Carbon Dioxide 32 mmol/L (23-31); Chloride 91 mmol/L (98-107); Estimated GFR-MDRD 14; Globulin 3.3 g/dL (2.4-3.5); Glucose 83 mg/dL (83-110); Potassium 4.7 mmol/L (3.5-5.1); Protein, Total 6.6 g/dL (5.8-8.1); Sodium 134 mmol/L (136-145)
--- NOTE | 2018-08-05 12:56 | CT ---
CT brain. HISTORY: Unresponsiveness CT brain demonstrates no evidence of acute intracranial masses, hemorrhages, strokes or contusions. IMPRESSION: unremarkable CT brain. Findings called to Dr. Moreau at 12:53 PM on 08/05/2018.
--- NOTE | 2018-08-05 13:20 | PDOC.PN ---
- Subjective Encounter Start Date: 08/05/18 Encounter Start Time: 13:18 Subjective: pt very somnolent this morning buyt wakes up w loud stimulus -: reports that he feels fine & is just sleepy -: was sitting up at the side of bed this morning,awake - Objective Resuscitation Status - Order Detail: 08/04/18 02:27 Resuscitation Status Routine Resuscitation Status: FULL: Full Resuscitation MAR Reviewed: Yes Vital Signs & Weight: Vital Signs (12 hours) Temp Pulse Resp BP Pulse Ox 08/05/18 12:25 46 L 16 117/54 L 98 08/05/18 07:55 98.8 F 58 L 18 119/58 L 100 08/05/18 03:30 98.5 F 59 L 18 126/72 100 Weight Weight 175 lb 9.6 oz I&O: 08/04/18 08/05/18 08/06/18 06:59 06:59 06:59 Intake Total 0 1520 Balance 0 1520 Result Diagrams: 08/05/18 12:21 08/05/18 12:21 Additional Labs: Accuchecks 08/05/18 12:07 POC Glucose 133 H Laboratory Tests 07/01/18 08/03/18 08/04/18 12:51 21:14 00:23 Troponin I 18.256 H* 0.356 H* 0.327 H* 08/04/18 03:22 Troponin I 0.305 H* Phys Exam - Physical Examination Constitutional: NAD somnolent dry mucosa Neck: no nodes, no JVD, supple, full ROM Respiratory: no wheezing, no rales, no rhonchi, clear to auscultation bilateral Cardiovascular: RRR systolic murmur Gastrointestinal: soft, non-tender, no distention, positive bowel sounds Musculoskeletal: no edema, pulses present Neurological: non-focal, normal sensation, moves all 4 limbs Psychiatric: normal affect Skin: no rash Dx/Plan (1) Acute on chronic systolic CHF (congestive heart failure), NYHA class 4 Code(s): I50.23 - ACUTE ON CHRONIC SYSTOLIC (CONGESTIVE) HEART FAILURE Status : Acute Comment: ECHO 07/06 shows decline in EF from 50%-25% with severe .Will discuss w Cardiology.Fluid removal with HD as tolerated (2) NSTEMI (non-ST elevated myocardial infarction) Code(s): I21.4 - NON-ST ELEVATION (NSTEMI) MYOCARDIAL INFARCTION Status: Acute Comment: Type 2 ND due to #1 (3) Encephalopathy Code(s): G93.40 - ENCEPHALOPATHY, UNSPECIFIED Status: Acute Comment: [place] Metabolic. Monitor clinically . (4) BPH (benign prostatic hyperplasia) Code(s): N40.0 - BENIGN PROSTATIC HYPERPLASIA WITHOUT LOWER URINRY TRACT SYMP Status: Chronic Qualifiers: Lower urinary tract symptom presence: unspecified whether lower urinary tract symptoms present Qualified Code(s): N40.0 - Benign prostatic hyperplasia without lower urinary tract symptoms (5) CAD (coronary artery disease) Code(s): I25.10 - ATHSCL HEART DISEASE OF [place] CORONARY ARTERY W/O ANG PCTRS Status: Chronic Qualifiers: Coronary Disease-Associated Artery/Lesion type: [place] artery [place] vs. transplanted heart: [place] heart Associated angina: without angina Qualified Code(s): I25.10 - Atherosclerotic heart disease of [place] coronary artery without angina pectoris Comment: h/o RCA stenting.on BB,Nitrates.Unclear why not on BRIDGET-I/ ARB.Gang Supervisor is Dr. Mckeon (6) Cardiomyopathy Code(s): I42.9 - CARDIOMYOPATHY, UNSPECIFIED Status: Chronic Qualifiers: Cardiomyopathy type: ischemic Qualified Code(s): I25.5 - Ischemic cardiomyopathy Comment: ef of 20%. (7) ESRD (end stage renal disease) on dialysis Code(s): N18.6 - END STAGE RENAL DISEASE; Z99.2 - DEPENDENCE ON RENAL DIALYSIS Status: Chronic Comment: Plan for HD per Nephrology (8) HTN (hypertension) Code(s): I10 - ESSENTIAL (PRIMARY) HYPERTENSION Status: Chronic Qualifiers: Hypertension type: essential hypertension Qualified Code(s): I10 - Essential (primary) hypertension (9) Mitral regurgitation and aortic stenosis Code(s): I08.0 - RHEUMATIC DISORDERS OF BOTH MITRAL AND AORTIC VALVES Status: Chronic Comment: non rheumatic (10) Obesity (BMI 30.0-34.9) Code(s): E66.9 - OBESITY, UNSPECIFIED Status: Chronic (11) Secondary hyperparathyroidism of renal origin Code(s): N25.81 - SECONDARY HYPERPARATHYROIDISM OF RENAL ORIGIN Status: Chronic Comment: cont sensipar (12) Thrombocytopenia Code(s): D69.6 - THROMBOCYTOPENIA, UNSPECIFIED Status: Chronic Comment: Suspect multifactorial and appears chronic, serial monitoring, repeat CBC in am (13) PAD (peripheral artery disease) Code(s): I73.9 - PERIPHERAL VASCULAR DISEASE, UNSPECIFIED Status: Chronic Comment: h/o Complete RCA occlusion - Plan PT/OT, respiratory therapy, incentive spirometry, out of bed/ambulate, DVT proph w/SCDs cont fluid removal as tolerated & monitor lytes. -: Message left for Dr. Mckeon regarding worsening EF & -: May need med optimization with/without AICD.Poor candidate for Sx -: add prn nebs though seems breathing well & not hypoxic -: high risk of decompensation. * . Review of Systems - Review of Systems Other: limited due to Somnolence - Medications/Allergies Allergies/Adverse Reactions: Allergies Allergy/AdvReac Type Severity Reaction Status Date / Time No Known Drug Allergies Allergy Verified 08/04/18 00:54 Medications: Current Medications Acetaminophen (Tylenol) 1,000 mg PO Q6H PRN PRN Reason: Mild Pain (1-3) Albuterol/Ipratropium (Duoneb) 3 ml NEB [id number] PRN PRN Reason: SOB &/or Wheezing Cinacalcet (Sensipar) 30 mg PO DAILY [facility] Last Admin: 08/05/18 08:55 Dose: 30 mg Epoetin Darrick-epbx (Retacrit) 7,500 unit SC Q7D [facility] Last Admin: 08/04/18 13:51 Dose: 7,500 unit Famotidine (Pepcid) 20 mg PO QAM [facility] Last Admin: 08/05/18 08:56 Dose: 20 mg Gabapentin (Neurontin) 300 mg PO TID [facility] Last Admin: 08/05/18 08:56 Dose: 300 mg Hydralazine HCl (Apresoline) 10 mg SLOW IVP Q4H PRN PRN Reason: SBP > 180 and HR < 70 Isos[facility]ide [facility] ([facility]ur) [facility] Last Admin: 08/05/18 08:56 Dose: 60 mg Metoclopramide HCl (Reglan) 5 mg PO QAM [facility] Last Admin: 08/05/18 08:56 Dose: 5 mg Metoprolol Tartrate (Lopressor) 37.5 mg PO BID-[facility] Nifedipine (Procardia Xl) [facility] Last Admin: 08/05/18 08:57 Dose: 90 mg Ondansetron HCl (Zofran Odt) 4 mg PO Q6H PRN PRN Reason: Nausea/Vomiting Ondansetron HCl (Zofran) 4 mg IVP Q6H PRN PRN Reason: Nausea/Vomiting Polyethylene Glycol (Miralax) 17 gm PO DAILY [facility] Last Admin: 08/05/18 08:58 Dose: 17 gm Sevelamer Carbonate (Renvela) 1,600 mg PO TID-[facility] Last Admin: 08/05/18 13:09 Dose: 1,600 mg
[2018-08-05 13:48] LABS: CKMB 2.8 ng/mL (0-6.6)
--- NOTE | 2018-08-05 15:54 | PDOC.EVN ---
Event Note - Event Note Event Note: ACP note Code socorro called.Pt was sleepy.Woke up with stimulation and labs ,EKG,CXR , brain CT doen and followed.More awake now. Called his daughter Lydia and explanied that poor prognosis w worsening Cardiac failure and seveer Aortic stenosis.Pt very poor candidate for any invasive precedure. Cde status discussed.Currently Full Code. Daughter said that she will need to discuss with rest of the family members and will talk to pt also when he is more awake. Updated that we geoff have cardiology to see him again regarding Medical optimization & may be AICD.daughter verbalized understanding.Palliative care team also consulted and they will contat family too Total time spent in ACP discussion 16 minutes
--- NOTE | 2018-08-05 15:58 | PDOC.EVN ---
Event Note - Event Note Event Note: Code green called. Pt more somnolent and difficult to wake up. woke up w painful stimulus and stayed more awake.ABG showed mild hypoxia. VSS stable but HR in high 40s. cLonidine patch removed.CXR doen and showed Left sided pleural effusion.Labs done and reviewed. Brain CT doen and shows no acute changes daughter notified care discussed w Dr. Lo Will consult cardiology again for worsening cardiomyopathy and severe . suspect Acute metabolic encephalopathy. will monitor
[2018-08-05] MEDS ORDERED: Metoprolol Tartrate 50 MG TAB PO SCH (17:00)
--- NOTE | 2018-08-06 07:41 | CON ---
DATE OF CONSULTATION: 08/05/2018 REASON FOR CONSULTATION: Shortness of breath and aortic stenosis. HISTORY OF PRESENT ILLNESS: Mr. Colindres is a pleasant 82-year-old gentleman, who is a patient of Dr. Steve Mckeon. He recently presented with shortness of breath. No chest pain or pressure noted. He does have a previous history of end-stage renal disease, on dialysis. The patient has previously known aortic stenosis. His mean and peak gradients have not been markedly elevated, likely due to low LVEF. He also has a history of systolic heart failure. The patient was last seen and evaluated by Dr. Steve Mckeon on 06/21/2018. Please see detailed note for his cardiac history. PAST MEDICAL HISTORY: CAD, hyperlipidemia, hypertension, occluded carotid severe aortic stenosis, polycystic kidney disease, hyperlipidemia, hypothyroidism, prostate cancer, lumbar laminectomy, prostate biopsy, left greater saphenous vein ablation. HOME MEDICATIONS: Include, 1. Gabapentin. 2. Sensipar. 3. Hydralazine. 4. Isosorbide. 5. Losartan. 6. Reglan. 7. Metoprolol. 8. Nifedipine. 9. Protonix. 10. Renvela. 11. Flomax. 12. Terazosin. ALLERGIES: NONE. SOCIAL HISTORY: Remote tobacco use. REVIEW OF SYSTEMS: A 10-point review of systems is reviewed and negative. PHYSICAL EXAMINATION: VITAL SIGNS: Blood pressure 129/67, pulse 45, heart rate 52. GENERAL: The patient is a pleasant 82-year-old, who is in no acute distress. The patient appears their stated age. NEUROLOGIC: The patient is alert and oriented x3 with no focal neurologic deficits. HEENT: Sclerae without icterus. Mouth has moist mucous membranes with normal pallor. NECK: No JVD. Carotid upstroke brisk. No bruits bilaterally. LUNGS: Clear to auscultation with unlabored respirations. BACK: No scoliosis or kyphosis. CARDIAC: Regular rate and rhythm with 2/6 systolic ejection murmur present. ABDOMEN: Soft, nontender, nondistended. No peritoneal signs present. No hepatosplenomegaly. No abnormal striae. EXTREMITIES: 3+ pitting edema. SKIN: No gross abnormalities. DIAGNOSTIC STUDIES: EKG shows a sinus bradycardia with nonspecific ST-T wave changes suggesting LVH. IMPRESSION: 1. Shortness of breath. 2. Aortic stenosis. 3. End-stage renal disease. 4. Bradycardia. RECOMMENDATIONS: Mr. Colindres's symptoms are likely multifactorial. He does have a history of cardiomyopathy with likely severe aortic stenosis. He also has end-stage renal disease. The patient also appears to be bradycardic. At this point, would stop metoprolol and consider decreasing clonidine. We will continue dialysis. The patient is certainly at high risk for SAVR. He may benefit from TAVR once he is stabilized. Job ID: [id number]
[2018-08-06] MEDS: Gabapentin 300 MG CAP PO SCH ×3 (07:48→20:29)
[2018-08-06] MEDS: Sevelamer Carbonate 800 MG TAB PO SCH ×3 (07:48→17:50)
[2018-08-06 08:26] LABS: #Eosinphils 0.2 thou/uL (0.0-0.7); #Lymphocytes 0.6 thou/uL (1.20-3.40); #Monocytes 0.6 thou/uL (0.11-0.59); #Neutrophils 3.6 thou/uL (1.40-6.50); %Basophils 0.1 % (0.0-1.0); %Eosinophils 4.5 % (0.0-10.0); %Lymphocytes 11.2 % (21.0-51.0); %Neutrophils 72.1 % (42.0-75.0); Hemoglobin 8.5 g/dL (14.0-18.0); Mean Corpuscular HGB CONC 32.3 g/dL (32.0-36.0); Mean Corpuscular Hemoglobin 30.8 pg (27.0-31.0); Mean Corpuscular Volume 95.4 fL (78.0-98.0); Mean Platelet Volume 9.6 fL (7.4-10.4); Platelet Count 126 thou/uL (130-400); RBC Distribution Width 16.9 % (11.5-14.5); Red Blood Cell (RBC) Count 2.75 mill/uL (4.70-6.10)
[2018-08-06 08:42] LABS: Anion Gap 15 mmol/L (10-20); BUN (Urea Nitrogen) 51 mg/dL (8.4-25.7); Calc. Creatinine Clearance 11 mL/min (70-130); Calcium 8.1 mg/dL (7.8-10.44); Carbon Dioxide 33 mmol/L (23-31); Chloride 90 mmol/L (98-107); Estimated GFR-MDRD 11; Glucose 89 mg/dL (83-110); Potassium 4.9 mmol/L (3.5-5.1); Sodium 133 mmol/L (136-145)
--- NOTE | 2018-08-06 09:34 | PRG ---
DATE OF SERVICE: 08/06/2018 SERVICE: Renal Medicine. SUBJECTIVE: Mr. Colindres is an 82-year-old black male with ESRD and currently on maintenance hemodialysis. He is undergoing hemodialysis today. I am at the bedside supervising his dialysis. Yesterday, he had a change in mental status. He was also noted to be bradycardic. Cardiology has evaluated this patient. Recommendation is to discontinue the clonidine as well as the metoprolol. I have added losartan this morning. The patient voices no other complaints. OBJECTIVE: VITAL SIGNS: Blood pressure is 176/79, heart rate 53, respiratory rate 13, temperature 98.4, and pulse ox is 95%. GENERAL: The patient is sleepy, but arousable and comfortable, not in distress. SKIN: Adequate turgor. HEENT: He does have a pale conjunctivae. Anicteric sclerae. NECK: No neck mass. No carotid bruits. No JVD. CHEST: No deformities. LUNGS: Clear breath sounds. HEART: Normal sinus rhythm. He has a grade 2/6 systolic murmur. No gallops. No rubs. ABDOMEN: Globular, soft, and nontender. No masses. EXTREMITIES: No edema. No deformities. MEDICATIONS: Medications of August 06, 2018, reviewed. LABORATORY DATA: Laboratories of July: White count 5, hemoglobin 8.5. Sodium 134, potassium 4.7, chloride 91, carbon dioxide 32, BUN 39, creatinine 4.97, and albumin 3.3. ASSESSMENT AND PLAN: 1. End-stage renal disease, stable. Continue current hemodialysis regimen. Fluid removal as tolerated. 2. Aortic stenosis - Cardiology is evaluated this patient. Eventually, he will need a transcatheter aortic-valve replacement, to be done when the patient is more stable. 3. Anemia. Continuing weekly Epogen. The patient is currently on erythropoietin 7500 units subcu q.7 days. 4. Bradycardia, off beta blockers. Agree with current management. Job ID: [id number]
[2018-08-06] MEDS: Cinacalcet HCl 30 MG TAB PO SCH (13:22)
[2018-08-06] MEDS: NIFEdipine XL 90 MG TAB PO SCH (13:22)
[2018-08-06] MEDS: Famotidine 20 MG TAB PO SCH (13:22)
[2018-08-06] MEDS: Metoclopramide HCl 10 MG TAB PO SCH (13:22)
[2018-08-06] MEDS: Polyethylene Glycol 3350 17 GM Packet PO SCH (13:23)
[2018-08-06] MEDS: Losartan 25 MG TAB PO SCH (13:26)
--- NOTE | 2018-08-06 13:48 | PDOC.PN ---
- Subjective Encounter Start Date: 08/06/18 Encounter Start Time: 13:46 Subjective: seen in dialysis and was sleeping but wakes up easily -: denies any new complaints -: no CP/SOB/Cough/fever/chiils - Objective Resuscitation Status - Order Detail: 08/04/18 02:27 Resuscitation Status Routine Resuscitation Status: FULL: Full Resuscitation MAR Reviewed: Yes Vital Signs & Weight: Vital Signs (12 hours) Temp Pulse Resp BP Pulse Ox 08/06/18 12:58 97.0 F L 64 15 146/67 H 99 08/06/18 07:48 98.4 F 53 L 13 176/79 H 95 08/06/18 04:00 97.7 F 52 L 16 129/67 100 Weight Weight 186 lb 1.6 oz I&O: 08/05/18 08/06/18 08/07/18 06:59 06:59 06:59 Intake Total 1520 740 Balance 1520 740 Result Diagrams: 08/06/18 08:15 08/06/18 08:15 Additional Labs: Laboratory Tests 08/03/18 08/04/18 08/05/18 21:14 03:22 09:09 Hgb 8.6 L 7.6 L 10.4 L Plt Count 150 112 L 114 L 08/05/18 08/06/18 12:21 08:15 Hgb 8.5 L Plt Count 128 L 126 L Phys Exam - Physical Examination Constitutional: NAD HEENT: PERRLA, sclera anicteric mucosa slightly dry Neck: no nodes, no JVD, supple, full ROM Respiratory: no wheezing, no rales, no rhonchi, clear to auscultation bilateral Cardiovascular: RRR, no significant murmur Gastrointestinal: soft, non-tender, no distention, positive bowel sounds Musculoskeletal: no edema, pulses present Neurological: non-focal, normal sensation, moves all 4 limbs Psychiatric: normal affect Dx/Plan (1) Acute on chronic systolic CHF (congestive heart failure), NYHA class 4 Code(s): I50.23 - ACUTE ON CHRONIC SYSTOLIC (CONGESTIVE) HEART FAILURE Status : Acute Comment: ECHO 07/06 shows decline in EF from 50%-25% with severe . ECHO 08/05/18 however, shows better EF at 30-35%. Will discuss w Cardiology. Fluid removal with HD as tolerated clinically better (2) NSTEMI (non-ST elevated myocardial infarction) Code(s): I21.4 - NON-ST ELEVATION (NSTEMI) MYOCARDIAL INFARCTION Status: Acute Comment: Type 2 [place] due to #1 (3) Encephalopathy Code(s): G93.40 - ENCEPHALOPATHY, UNSPECIFIED Status: Acute Comment: [place] Metabolic. Monitor clinically . improving (4) BPH (benign prostatic hyperplasia) Code(s): N40.0 - BENIGN PROSTATIC HYPERPLASIA WITHOUT LOWER URINRY TRACT SYMP Status: Chronic Qualifiers: Lower urinary tract symptom presence: unspecified whether lower urinary tract symptoms present Qualified Code(s): N40.0 - Benign prostatic hyperplasia without lower urinary tract symptoms (5) CAD (coronary artery disease) Code(s): I25.10 - ATHSCL HEART DISEASE OF [place] CORONARY ARTERY W/O ANG PCTRS Status: Chronic Qualifiers: Coronary Disease-Associated Artery/Lesion type: [place] artery [place] vs. transplanted heart: [place] heart Associated angina: without angina Qualified Code(s): I25.10 - Atherosclerotic heart disease of [place] coronary artery without angina pectoris Comment: h/o RCA stenting.on BB,Nitrates.Unclear why not on BRIDGET-I/ ARB.Bioinformatician is Dr. Mckeon (6) Cardiomyopathy Code(s): I42.9 - CARDIOMYOPATHY, UNSPECIFIED Status: Chronic Qualifiers: Cardiomyopathy type: ischemic Qualified Code(s): I25.5 - Ischemic cardiomyopathy Comment: ef of 30%. (7) ESRD (end stage renal disease) on dialysis Code(s): N18.6 - END STAGE RENAL DISEASE; Z99.2 - DEPENDENCE ON RENAL DIALYSIS Status: Chronic Comment: Plan for HD per Nephrology (8) HTN (hypertension) Code(s): I10 - ESSENTIAL (PRIMARY) HYPERTENSION Status: Chronic Qualifiers: Hypertension type: essential hypertension Qualified Code(s): I10 - Essential (primary) hypertension (9) Mitral regurgitation and aortic stenosis Code(s): I08.0 - RHEUMATIC DISORDERS OF BOTH MITRAL AND AORTIC VALVES Status: Chronic Comment: non rheumatic. May be TAVR at a later date but a very poor candidate for that as well.defer to cardiology (10) Obesity (BMI 30.0-34.9) Code(s): E66.9 - OBESITY, UNSPECIFIED Status: Chronic (11) Secondary hyperparathyroidism of renal origin Code(s): N25.81 - SECONDARY HYPERPARATHYROIDISM OF RENAL ORIGIN Status: Chronic Comment: cont sensipar (12) Thrombocytopenia Code(s): D69.6 - THROMBOCYTOPENIA, UNSPECIFIED Status: Chronic Comment: Suspect multifactorial and appears chronic, serial monitoring, repeat CBC in am (13) PAD (peripheral artery disease) Code(s): I73.9 - PERIPHERAL VASCULAR DISEASE, UNSPECIFIED Status: Chronic Comment: h/o Complete RCA occlusion (14) Pulmonary arterial hypertension Code(s): I27.21 - SECONDARY PULMONARY ARTERIAL HYPERTENSION Status: Chronic Comment: Based on ECHO 08/05/18 - Plan PT/OT, incentive spirometry, out of bed/ambulate, DVT proph w/SCDs Clinically better today.cont HD w fluid removal as tolerated -: HR better after stopping BB and clonidine. Start Cozaar for BP control -: cont Imdur,procardia as well as prn antihypertensives -: High risk of decompensation d/t multiple co morbidities. -: palliative care assisting w addressing Code status.Full for now * . Review of Systems - Review of Systems Other: limited due to sleepiness and some underlying dementia. pt does not engage in conversation much - Medications/Allergies Allergies/Adverse Reactions: Allergies Allergy/AdvReac Type Severity Reaction Status Date / Time No Known Drug Allergies Allergy Verified 08/04/18 00:54 Medications: Current Medications Acetaminophen (Tylenol) 1,000 mg PO Q6H PRN PRN Reason: Mild Pain (1-3) Albuterol/Ipratropium (Duoneb) 3 ml NEB [id number] PRN PRN Reason: SOB &/or Wheezing Cinacalcet (Sensipar) 30 mg PO DAILY [facility] Last Admin: 08/06/18 13:22 Dose: 30 mg Epoetin Darrick-epbx (Retacrit) 7,500 unit SC Q7D [facility] Last Admin: 08/04/18 13:51 Dose: 7,500 unit Famotidine (Pepcid) 20 mg PO QAM [facility] Last Admin: 08/06/18 13:22 Dose: 20 mg Gabapentin (Neurontin) 300 mg PO TID [facility] Last Admin: 08/06/18 07:48 Dose: Not Given Hydralazine HCl (Apresoline) 10 mg SLOW IVP Q4H PRN PRN Reason: SBP > 180 and HR < 70 Isosorbide Mononitrate (Imdur) 60 mg PO QAM [facility] Last Admin: 08/06/18 13:21 Dose: 60 mg Losartan Potassium (Cozaar) 25 mg PO DAILY [facility] Last Admin: 08/06/18 13:26 Dose: 25 mg Metoclopramide HCl (Reglan) 5 mg PO QAM [facility] Last Admin: 08/06/18 13:22 Dose: 5 mg Nifedipine (Procardia Xl) 90 mg PO QAM [facility] Last Admin: 08/06/18 13:22 Dose: 90 mg Ondansetron HCl (Zofran Odt) 4 mg PO Q6H PRN PRN Reason: Nausea/Vomiting Ondansetron HCl (Zofran) 4 mg IVP Q6H PRN PRN Reason: Nausea/Vomiting Polyethylene Glycol (Miralax) 17 gm PO DAILY [facility] Last Admin: 08/06/18 13:23 Dose: 17 gm Sevelamer Carbonate (Renvela) 1,600 mg PO TID-WM [facility] Last Admin: 08/06/18 13:21 Dose: 1,600 mg Sodium Chloride (Flush - Normal Saline) 10 ml IVF Q12HR [facility] Last Admin: 08/06/18 13:27 Dose: 10 ml Sodium Chloride (Flush - Normal Saline) 10 ml IVF PRN PRN PRN Reason: Saline Flush
--- NOTE | 2018-08-06 13:53 | PQF ---
NHAN CADENA RICHA MD [id number] [id number] CLINICAL DOCUMENTATION IMPROVEMENT CLARIFICATION FORM: ICD-10 Updated PLEASE DO AN ADDENDUM TO THE PROGRESS NOTE WITH ANY DOCUMENTATION UPDATES OR ADDITIONS AND CARRY THROUGH TO DC SUMMARY. THANK YOU. DATE: 08/06/18 , 08/07/18 ATTN:DR. Elizabeth MONROE Please exercise your independent, professional judgment in responding to the clarification form. Clinical indicators are provided on the bottom of this form for your review. Please check appropriate box(s): Encephalopathy: Type: [ X] Acute [ ] Subacute [ ] Chronic Etiology: [ ] Hypertensive [ X ] Metabolic [ ] Toxic [ ] Hepatic with Coma [ ] Other diagnosis [ ] Unable to determine In addition, please specify: Present on Admission (POA): [ ] Yes [ ] No [ X] Unable to determine For continuity of documentation, please document condition throughout progress notes and discharge summary. Thank You. CLINICAL INDICATORS - SIGNS / SYMPTOMS / LABS 08/05 PN (FER) DX/PLAN : 3) ENCEPHALOPATHY, UNSPECIFIED, ACUTE: LIKELY METABOLIC 08/05 EVENT NOTE ( FER) CODE GREEN CALLED FOR PATIENT, PT WAS SLEEPY. WOKE UP WITH STIMULATION AND LABS, EKG , CXR, BRAIN CT DONE AND FOLLOWED. 08/05 EVENT NOTE(FER) CODE GREEN CALLED. PT MORE SOMNOLENT AND DIFFICULT TO WAKE UP. WOKE UP W PAINFUL STIMULUS. ABG SHOWED MILD HYPOXIA. VSS BUT HR IN HIGH 40S. CLONIDINE PATCH REMOVED. CXR DONE AND SHOWED LEFT SIDED PLEURAL EFFUSION. BRAIN CT DONE AND SHOWS NO ACUTE CHANGES. WILL CONSULT CARDIOLOGY AGAIN FOR WORSENING CARDIOMYOPATHY AND SEVERE . SUSPECT ACUTE METABOLIC ENCEPHALOPATHY 08/06 CONSULT ([facility]) IMPRESSION: SOB, AORTIC STENOSIS, ESRD, BRADYCARDIA , RECOMMENDATIONS: HE MAY BENEFIT FROM TAVR ONCE HE IS STABILIZED. NO FURTHER MENTION OF ENCEPHALOPATHY RISK ESRD (KEYLA H &P) ADVANCED AGE (82) TREATMENTS: SUPPLEMENTAL O2 CONTINUOUS TELEMETRY MONITORING THANK YOU! MICHI (This form is maintained as a part of the permanent medical record) 2014 [employer]. All Rights Reserved [email or web address] [phone] [facility]
[2018-08-07] MEDS: Sevelamer Carbonate 800 MG TAB PO SCH ×3 (08:51→17:38)
[2018-08-07] MEDS: Gabapentin 300 MG CAP PO SCH ×3 (08:52→21:16)
[2018-08-07] MEDS: Cinacalcet HCl 30 MG TAB PO SCH (08:52)
[2018-08-07] MEDS: Losartan 25 MG TAB PO SCH (08:52)
[2018-08-07] MEDS: Metoclopramide HCl 10 MG TAB PO SCH (08:52)
[2018-08-07] MEDS: Famotidine 20 MG TAB PO SCH (08:52)
[2018-08-07] MEDS: Polyethylene Glycol 3350 17 GM Packet PO SCH (08:53)
[2018-08-07] MEDS: NIFEdipine XL 90 MG TAB PO SCH (08:53)
--- NOTE | 2018-08-07 09:26 | PRG ---
DATE OF SERVICE: 08/07/2018 SUBJECTIVE: Mr. Colindres is an 82-year-old black male with ESRD and followed up with Renal Service for his maintenance hemodialysis. He underwent heparin free dialysis yesterday without difficulty. During this hospitalization, he had some episode of bradycardia. Adjustment of his medications was done. No new complaints today. OBJECTIVE: VITAL SIGNS: Blood pressure 104/52, heart rate 56, respiratory rate 18, temperature 98.6, and pulse ox 96%. GENERAL: Awake, sitting comfortable, not in overt distress. SKIN: Adequate turgor. HEENT: He has a slightly pale conjunctivae. Anicteric sclerae. NECK: No neck mass. No carotid bruits. No JVD. CHEST: No deformities. LUNGS: Decreased breath sounds. HEART: Normal sinus rhythm. No murmur. No gallops. No rubs. ABDOMEN: Globular, soft, and nontender. No masses. EXTREMITIES: No edema. No deformities. LABORATORY DATA: Laboratories of August 06, 2018, hemoglobin 8.5. Sodium 133, potassium 4.9, chloride 90, carbon dioxide 33, BUN 51, creatinine 6.08, glucose 89, and calcium 8.1. ASSESSMENT AND PLAN: 1. End-stage renal disease, stable. We will continue current Saturday, Saturday, and Saturday hemodialysis. Fluid removal only as tolerated. 2. Bradycardia, clinically improved. Cardiology is following. 3. Aortic stenosis - for eventual transcatheter aortic valve replacement once the patient is more stable. 4. Anemia. We will continue weekly Epogen with this patient. Job ID: [id number]
--- NOTE | 2018-08-07 11:32 | PDOC.PN ---
- Subjective Encounter Start Date: 08/07/18 Encounter Start Time: 11:31 Subjective: no new events. pt sleepy again but wakes up w stimulus -: care discussed w RN - Objective Resuscitation Status - Order Detail: 08/04/18 02:27 Resuscitation Status Routine Resuscitation Status: FULL: Full Resuscitation MAR Reviewed: Yes Vital Signs & Weight: Vital Signs (12 hours) Temp Pulse Resp BP Pulse Ox 08/07/18 11:04 98.2 F 77 20 119/57 L 93 L 08/07/18 10:20 96 08/07/18 07:10 98.4 F 68 18 133/84 96 Weight Weight 186 lb 1.6 oz I&O: 08/06/18 08/07/18 08/08/18 06:59 06:59 06:59 Intake Total 740 480 Output Total 3100 Balance 740 -2620 Result Diagrams: 08/06/18 08:15 08/06/18 08:15 Phys Exam - Physical Examination Constitutional: NAD sleeping sitting up in bed HEENT: PERRLA, sclera anicteric, oral pharynx no lesions slightly dry mucosa Neck: no nodes, no JVD, supple, full ROM Respiratory: no wheezing, no rales, no rhonchi, clear to auscultation bilateral Cardiovascular: RRR, no significant murmur Gastrointestinal: soft, non-tender, no distention, positive bowel sounds Musculoskeletal: no edema, pulses present Neurological: non-focal, normal sensation, moves all 4 limbs Dx/Plan (1) Acute on chronic systolic CHF (congestive heart failure), NYHA class 4 Code(s): I50.23 - ACUTE ON CHRONIC SYSTOLIC (CONGESTIVE) HEART FAILURE Status : Acute Comment: ECHO 07/06 shows decline in EF from 50%-25% with severe . ECHO 08/05/18 however, shows better EF at 30-35%. Will discuss w Cardiology. Fluid removal with HD as tolerated clinically better BB stopped due to bradycardia.cont ARB (2) NSTEMI (non-ST elevated myocardial infarction) Code(s): I21.4 - NON-ST ELEVATION (NSTEMI) MYOCARDIAL INFARCTION Status: Acute Comment: Type 2 [place] due to #1 (3) Encephalopathy Code(s): G93.40 - ENCEPHALOPATHY, UNSPECIFIED Status: Acute Comment: [place] Metabolic. Monitor clinically . improving (4) BPH (benign prostatic hyperplasia) Code(s): N40.0 - BENIGN PROSTATIC HYPERPLASIA WITHOUT LOWER URINRY TRACT SYMP Status: Chronic Qualifiers: Lower urinary tract symptom presence: unspecified whether lower urinary tract symptoms present Qualified Code(s): N40.0 - Benign prostatic hyperplasia without lower urinary tract symptoms (5) CAD (coronary artery disease) Code(s): I25.10 - ATHSCL HEART DISEASE OF [place] CORONARY ARTERY W/O ANG PCTRS Status: Chronic Qualifiers: Coronary Disease-Associated Artery/Lesion type: [place] artery [place] vs. transplanted heart: [place] heart Associated angina: without angina Qualified Code(s): I25.10 - Atherosclerotic heart disease of [place] coronary artery without angina pectoris Comment: h/o RCA stenting.on BB,Nitrates.Unclear why not on BRIDGET-I/ ARB.Physical Therapy Aides Teacher is Dr. Mckeon (6) Cardiomyopathy Code(s): I42.9 - CARDIOMYOPATHY, UNSPECIFIED Status: Chronic Qualifiers: Cardiomyopathy type: ischemic Qualified Code(s): I25.5 - Ischemic cardiomyopathy Comment: ef of 30%. (7) ESRD (end stage renal disease) on dialysis Code(s): N18.6 - END STAGE RENAL DISEASE; Z99.2 - DEPENDENCE ON RENAL DIALYSIS Status: Chronic Comment: Plan for HD per Nephrology (8) HTN (hypertension) Code(s): I10 - ESSENTIAL (PRIMARY) HYPERTENSION Status: Chronic Qualifiers: Hypertension type: essential hypertension Qualified Code(s): I10 - Essential (primary) hypertension (9) Mitral regurgitation and aortic stenosis Code(s): I08.0 - RHEUMATIC DISORDERS OF BOTH MITRAL AND AORTIC VALVES Status: Chronic Comment: non rheumatic. May be TAVR at a later date but a very poor candidate for that as well.defer to cardiology (10) Obesity (BMI 30.0-34.9) Code(s): E66.9 - OBESITY, UNSPECIFIED Status: Chronic (11) Secondary hyperparathyroidism of renal origin Code(s): N25.81 - SECONDARY HYPERPARATHYROIDISM OF [place]NAL [place] Status: Chronic Comment: cont sensipar (12) Thrombocytopenia Code(s): D69.6 - THROMBOCYTOPENIA, UNSPECIFIED Status: Chronic Comment: Suspect multifactorial and appears chronic, serial monitoring, repeat CBC in am (13) PAD (peripheral artery disease) Code(s): I73.9 - PERIPHERAL VASCULAR DISEASE, UNSPECIFIED Status: Chronic Comment: h/o Complete RCA occlusion (14) Pulmonary arterial hypertension Code(s): I27.21 - SECONDARY PULMONARY ARTERIAL HYPERTENSION Status: Chronic Comment: Based on ECHO 08/05/18 - Plan DVT proph w/SCDs awaiting final cardiology recs -: bradycardia improved after stopping BB and clonidine. monitor -: On Imdur, procardia and Cozaar for HTN. -: Family to discuss Code status w Palliative care team -: Pt poor candidate for any aggressive surgical measures.suspected dementia * .labs in am Review of Systems - Review of Systems Other: unobtainable due to somnolence and dementia - Medications/Allergies Allergies/Adverse Reactions: Allergies Allergy/AdvReac Type Severity Reaction Status Date / Time No Known Drug Allergies Allergy Verified 08/04/18 00:54 Medications: Current Medications Acetaminophen (Tylenol) 1,000 mg PO Q6H PRN PRN Reason: Mild Pain (1-3) Albuterol/Ipratropium (Duoneb) 3 ml NEB [id number] PRN PRN Reason: SOB &/or Wheezing Cinacalcet (Sensipar) 30 mg PO DAILY [facility] Last Admin: 08/07/18 08:52 Dose: 30 mg Epoetin Darrick-epbx (Retacrit) 7,500 unit SC Q7D [facility] Last Admin: 08/04/18 13:51 Dose: 7,500 unit Famotidine (Pepcid) 20 mg PO QAM [facility] Last Admin: 08/07/18 08:52 Dose: 20 mg Gabapentin (Neurontin) 300 mg PO TID [facility] Last Admin: 08/07/18 08:52 Dose: 300 mg Hydralazine HCl (Apresoline) 10 mg SLOW IVP Q4H PRN PRN Reason: SBP > 180 and HR < 70 Isosorbide Mononitrate (Imdur) 60 mg PO QAM [facility] Last Admin: 08/07/18 09:44 Dose: 60 mg Losartan Potassium (Cozaar) 25 mg PO DAILY [facility] Last Admin: 08/07/18 08:52 Dose: 25 mg Metoclopramide HCl (Reglan) 5 mg PO QAM [facility] Last Admin: 08/07/18 08:52 Dose: 5 mg Nifedipine (Procardia Xl) 90 mg PO QAM [facility] Last Admin: 08/07/18 08:53 Dose: 90 mg Ondansetron HCl (Zofran Odt) 4 mg PO Q6H PRN PRN Reason: Nausea/Vomiting Ondansetron HCl (Zofran) 4 mg IVP Q6H PRN PRN Reason: Nausea/Vomiting Polyethylene Glycol (Miralax) 17 gm PO DAILY [facility] Last Admin: 08/07/18 08:53 Dose: 17 gm Sevelamer Carbonate (Renvela) 1,600 mg PO TID-WM [facility] Last Admin: 08/07/18 11:10 Dose: 1,600 mg Sodium Chloride (Flush - Normal Saline) 10 ml IVF Q12HR [facility] Last Admin: 08/07/18 08:53 Dose: 10 ml Sodium Chloride (Flush - Normal Saline) 10 ml IVF PRN PRN PRN Reason: Saline Flush
[2018-08-07 16:34] LABS: Anion Gap 15 mmol/L (10-20); BUN (Urea Nitrogen) 39 mg/dL (8.4-25.7); Calc. Creatinine Clearance 12 mL/min (70-130); Calcium 7.9 mg/dL (7.8-10.44); Carbon Dioxide 32 mmol/L (23-31); Chloride 92 mmol/L (98-107); Estimated GFR-MDRD 12; Glucose 89 mg/dL (83-110); Potassium 4.2 mmol/L (3.5-5.1); Sodium 135 mmol/L (136-145)
[2018-08-07 16:55] LABS: Anisocytosis SLIGHT = 6-15 cells (100X) (0-5/hpf); Band 5 % (5-11); Lymphocytes 3 % (21-51); MDiff Complete? YES; Mean Corpuscular HGB CONC 32.4 g/dL (32.0-36.0); Mean Corpuscular Hemoglobin 31.2 pg (27.0-31.0); Mean Corpuscular Volume 96.3 fL (78.0-98.0); Mean Platelet Volume 9.3 fL (7.4-10.4); Monocytes 6 % (0-10); Neutrophil 86 % (42-75); Platelet Count 149 thou/uL (130-400); Platelet Morphology Comment Appears Adequate; Red Blood Cell (RBC) Count 2.57 mill/uL (4.70-6.10); White Blood Cell (WBC) Count 5.2 thou/uL (4.8-10.8)
[2018-08-08 09:15] LABS: #Eosinphils 0.2 thou/uL (0.0-0.7); #Lymphocytes 0.5 thou/uL (1.20-3.40); #Monocytes 0.8 thou/uL (0.11-0.59); #Neutrophils 5.6 thou/uL (1.40-6.50); %Eosinophils 2.5 % (0.0-10.0); %Lymphocytes 7.4 % (21.0-51.0); %Monocytes 10.8 % (0.0-10.0); %Neutrophils 79.4 % (42.0-75.0); Hemoglobin 8.5 g/dL (14.0-18.0); Mean Corpuscular HGB CONC 32.6 g/dL (32.0-36.0); Mean Corpuscular Hemoglobin 31.3 pg (27.0-31.0); Mean Corpuscular Volume 96.3 fL (78.0-98.0); Mean Platelet Volume 8.6 fL (7.4-10.4); Platelet Count 155 thou/uL (130-400); RBC Distribution Width 16.7 % (11.5-14.5); Red Blood Cell (RBC) Count 2.72 mill/uL (4.70-6.10); White Blood Cell (WBC) Count 7.1 thou/uL (4.8-10.8)
[2018-08-08 09:31] LABS: Anion Gap 13 mmol/L (10-20); BUN (Urea Nitrogen) 36 mg/dL (8.4-25.7); Calc. Creatinine Clearance 14 mL/min (70-130); Calcium 8.2 mg/dL (7.8-10.44); Carbon Dioxide 32 mmol/L (23-31); Chloride 95 mmol/L (98-107); Estimated GFR-MDRD 15; Glucose 105 mg/dL (83-110); Sodium 136 mmol/L (136-145)
[2018-08-08] MEDS: Gabapentin 300 MG CAP PO SCH (09:43)
--- NOTE | 2018-08-08 09:53 | PRG ---
DATE OF SERVICE: 08/08/2018 SUBJECTIVE: Mr. Colindres is an 82-year-old black male with known history of ESRD and followed up by the [facility]al Service for maintenance hemodialysis. He is currently undergoing dialysis today. He voices no new complaints. He denies any chest pain or shortness of breath. OBJECTIVE: VITAL SIGNS: Blood pressure is 172/86, heart rate 84, respiratory rate 18, temperature 97.7, and pulse ox 94%. GENERAL: Awake, alert, and comfortable, not in distress. SKIN: Adequate turgor. HEENT: He has a slightly pale conjunctivae. Anicteric sclerae. NECK: No neck mass. No carotid bruits. No JVD. CHEST: No deformities. LUNGS: Clear breath sounds. No wheezing. No crackles. HEART: Normal sinus rhythm. No murmurs, gallops, or rubs. ABDOMEN: Globular, soft, and nontender. No masses. EXTREMITIES: No edema. No deformities. MEDICATIONS: Medications of August 08, 2018, reviewed. LABORATORY DATA: Laboratories of August 08, 2018, white count 7.1 and hemoglobin 8.5. August 07, 2018; potassium 4.2, BUN 39, and creatinine 5.37. ASSESSMENT AND PLAN: 1. Sleepiness - we will hold off gabapentin. 2. End-stage renal disease, stable. We will continue current hemodialysis regimen. Fluid removal is being tolerated by the patient. Continue heparin free dialysis. 3. Anemia. We are currently on weekly Epogen with this patient. Tolerating said treatment. Job ID: [id number]
--- NOTE | 2018-08-08 12:02 | PDOC.PN ---
- Subjective Encounter Start Date: 08/08/18 Encounter Start Time: 12:00 Subjective: seen and examined in dialysis -: sleepy and wakes up w conversation.able to tel name/address/ -: no new events - Objective Resuscitation Status - Order Detail: 08/04/18 02:27 Resuscitation Status Routine Resuscitation Status: FULL: Full Resuscitation MAR Reviewed: Yes Vital Signs & Weight: Vital Signs (12 hours) Temp Pulse Resp BP BP Pulse Ox 08/08/18 08:23 97.7 F 84 18 172/86 H 94 L 08/08/18 07:14 99 08/08/18 03:11 97.4 F L 62 22 H 127/90 99 08/08/18 01:25 94 L 08/08/18 00:52 84 20 94 L Weight Weight 177 lb 8 oz I&O: 08/07/18 08/08/18 08/09/18 06:59 06:59 06:59 Intake Total 480 530 Output Total 3100 Balance -2620 530 Result Diagrams: 08/08/18 08:25 08/08/18 08:25 Additional Labs: Laboratory Tests 08/03/18 08/04/18 08/05/18 21:14 03:22 09:09 Hgb 8.6 L 7.6 L 10.4 L Plt Count 150 112 L 114 L 08/05/18 08/06/18 08/07/18 12:21 08:15 15:59 Hgb 8.3 L 8.5 L 8.0 L Plt Count 128 L Phys Exam - Physical Examination Constitutional: NAD HEENT: PERRLA, moist MMs, sclera anicteric, oral pharynx no lesions Neck: no nodes, no JVD, supple, full ROM Respiratory: no wheezing, no rales, no rhonchi, clear to auscultation bilateral Cardiovascular: RRR, no significant murmur Gastrointestinal: soft, non-tender, no distention, positive bowel sounds Musculoskeletal: no edema, pulses present Neurological: non-focal, normal sensation, moves all 4 limbs Psychiatric: normal affect Dx/Plan (1) Acute on chronic systolic CHF (congestive heart failure), NYHA class 4 Code(s): I50.23 - ACUTE ON CHRONIC SYSTOLIC (CONGESTIVE) HEART FAILURE Status : Acute Comment: ECHO 07/06 shows decline in EF from 50%-25% with severe . ECHO 08/05/18 however, shows better EF at 30-35%. Will discuss w Cardiology. Fluid removal with HD as tolerated clinically better BB stopped due to bradycardia.cont ARB (2) NSTEMI (non-ST elevated myocardial infarction) Code(s): I21.4 - NON-ST ELEVATION (NSTEMI) MYOCARDIAL INFARCTION Status: Acute Comment: Type 2 AL due to #1 (3) Encephalopathy Code(s): G93.40 - ENCEPHALOPATHY, UNSPECIFIED Status: Acute Comment: [place] Metabolic. Monitor clinically . improving Hold gabapentin.Suspect baseline dementia (4) BPH (benign prostatic hyperplasia) Code(s): N40.0 - BENIGN PROSTATIC HYPERPLASIA WITHOUT LOWER URINRY TRACT SYMP Status: Chronic Qualifiers: Lower urinary tract symptom presence: unspecified whether lower urinary tract symptoms present Qualified Code(s): N40.0 - Benign prostatic hyperplasia without lower urinary tract symptoms (5) CAD (coronary artery disease) Code(s): I25.10 - ATHSCL HEART DISEASE OF [place] CORONARY ARTERY W/O ANG PCTRS Status: Chronic Qualifiers: Coronary Disease-Associated Artery/Lesion type: [place] artery [place] vs. transplanted heart: [place] heart Associated angina: without angina Qualified Code(s): I25.10 - Atherosclerotic heart disease of [place] coronary artery without angina pectoris Comment: h/o RCA stenting.on BB,Nitrates.Unclear why not on BRIDGET-I/ ARB.Parts Department Manager is Dr. Mckeon (6) Cardiomyopathy Code(s): I42.9 - CARDIOMYOPATHY, UNSPECIFIED Status: Chronic Qualifiers: Cardiomyopathy type: ischemic Qualified Code(s): I25.5 - Ischemic cardiomyopathy Comment: ef of 30%. (7) ESRD (end stage renal disease) on dialysis Code(s): N18.6 - END STAGE RENAL DISEASE; Z99.2 - DEPENDENCE ON RENAL DIALYSIS Status: Chronic Comment: Plan for HD per Nephrology (8) HTN (hypertension) Code(s): I10 - ESSENTIAL (PRIMARY) HYPERTENSION Status: Chronic Qualifiers: Hypertension type: essential hypertension Qualified Code(s): I10 - Essential (primary) hypertension (9) Mitral regurgitation and aortic stenosis Code(s): I08.0 - RHEUMATIC DISORDERS OF BOTH MITRAL AND AORTIC VALVES Status: Chronic Comment: non rheumatic. May be TAVR at a later date but a very poor candidate for that as well.defer to cardiology (10) Obesity (BMI 30.0-34.9) Code(s): E66.9 - OBESITY, UNSPECIFIED Status: Chronic (11) Secondary hyperparathyroidism of renal origin Code(s): N25.81 - SECONDARY HYPERPARATHYROIDISM OF RENAL ORIGIN Status: Chronic Comment: cont sensipar (12) Thrombocytopenia Code(s): D69.6 - THROMBOCYTOPENIA, UNSPECIFIED Status: Chronic Comment: Suspect multifactorial and appears chronic, serial monitoring, repeat CBC in am. better today. heparin free HD (13) PAD (peripheral artery disease) Code(s): I73.9 - PERIPHERAL VASCULAR DISEASE, UNSPECIFIED Status: Chronic Comment: h/o Complete RCA occlusion (14) Pulmonary arterial hypertension Code(s): I27.21 - SECONDARY PULMONARY ARTERIAL HYPERTENSION Status: Chronic Comment: Based on ECHO 08/05/18 - Plan PT/OT, respiratory therapy, incentive spirometry, out of bed/ambulate, DVT proph w/SCDs BP controlled .cont meds as above Imdue,procardia & Cozaar -: HR better after stopping BB and clonidine -: Moderate -TAVR at a later date if stable.poor candidate -: EF improved-will not need Lifevest.cont ARB.cardiology recs requested -: Hemodynamically stable.monitor.DC to Rehab when Ok w cardiology * . Review of Systems - Review of Systems Constitutional: negative: fever, chills, sweats, weakness, malaise, other Respiratory: negative: Cough, Dry, Shortness of Breath, Hemoptysis, SOB with Excertion, Pleuritic Pain, Sputum, Wheezing Cardiovascular: negative: chest pain, palpitations, orthopnea, paroxysmal nocturnal dyspnea, edema, light headedness, other Gastrointestinal: negative: Nausea, Vomiting, Abdominal Pain, Diarrhea, Constipation, Melena, Hematochezia, Other Other: limited due to somnolence and dementia - Medications/Allergies Allergies/Adverse Reactions: Allergies Allergy/AdvReac Type Severity Reaction Status Date / Time No Known Drug Allergies Allergy Verified 08/04/18 00:54 Medications: Current Medications Acetaminophen (Tylenol) 1,000 mg PO Q6H PRN PRN Reason: Mild Pain (1-3) Albuterol/Ipratropium (Duoneb) 3 ml NEB V2HP-UC PRN PRN Reason: SOB &/or Wheezing Last Admin: 08/08/18 00:52 Dose: 3 ml Cinacalcet (Sensipar) 30 mg PO DAILY [facility] Last Admin: 08/07/18 08:52 Dose: 30 mg Epoetin Darrick-epbx (Retacrit) 7,500 unit SC Q7D [facility] Last Admin: 08/04/18 13:51 Dose: 7,500 unit Famotidine (Pepcid) 20 mg PO QAM [facility] Last Admin: 08/07/18 08:52 Dose: 20 mg Hydralazine HCl (Apresoline) 10 mg SLOW IVP Q4H PRN PRN Reason: SBP > 180 and HR < 70 Isosorbide [facility] ([facility]) [facility] Last Admin: 08/07/18 09:44 Dose: 60 mg Losartan Potassium (Cozaar) 25 mg PO DAILY [facility] Last Admin: 08/07/18 08:52 Dose: 25 mg Metoclopramide HCl (Reglan) [facility] Last Admin: 08/07/18 08:52 Dose: 5 mg Nifedipine (Procardia Xl) 90 mg PO [facility] Last Admin: 08/07/18 08:53 Dose: 90 mg Ondansetron HCl (Zofran Odt) 4 mg PO Q6H PRN PRN Reason: Nausea/Vomiting Ondansetron HCl (Zofran) 4 mg IVP Q6H PRN PRN Reason: Nausea/Vomiting Polyethylene Glycol (Miralax) 17 gm PO DAILY [facility] Last Admin: 08/07/18 08:53 Dose: 17 gm Sevelamer Carbonate (Renvela) 1,600 mg PO [facility] Last Admin: 08/07/18 17:38 Dose: 1,600 mg Sodium Chloride (Flush - Normal Saline) 10 ml IVF Q12HR [facility] Last Admin: 08/07/18 21:16 Dose: Not Given Sodium Chloride (Flush - Normal Saline) 10 ml IVF PRN PRN PRN Reason: Saline Flush
[2018-08-08] MEDS: Sevelamer Carbonate 800 MG TAB PO SCH ×3 (13:09→16:35)
[2018-08-08] MEDS: Losartan 25 MG TAB PO SCH (13:48)
[2018-08-08] MEDS: Metoclopramide HCl 10 MG TAB PO SCH (13:49)
[2018-08-08] MEDS: Cinacalcet HCl 30 MG TAB PO SCH (13:49)
[2018-08-08] MEDS: Famotidine 20 MG TAB PO SCH (13:49)
[2018-08-08] MEDS: NIFEdipine XL 90 MG TAB PO SCH (13:49)
[2018-08-08] MEDS: Polyethylene Glycol 3350 17 GM Packet PO SCH (13:52)
[2018-08-09 05:35] LABS: Anion Gap 12 mmol/L (10-20); BUN (Urea Nitrogen) 30 mg/dL (8.4-25.7); Calc. Creatinine Clearance 13 mL/min (70-130); Calcium 8.3 mg/dL (7.8-10.44); Carbon Dioxide 34 mmol/L (23-31); Chloride 96 mmol/L (98-107); Estimated GFR-MDRD 14; Glucose 94 mg/dL (83-110); Potassium 3.9 mmol/L (3.5-5.1); Sodium 138 mmol/L (136-145)
[2018-08-09 05:46] LABS: Anisocytosis SLIGHT = 6-15 cells (100X) (0-5/hpf); Eosinophils 6 % (0-10); Hemoglobin 8.3 g/dL (14.0-18.0); Lymphocytes 9 % (21-51); MDiff Complete? YES; Mean Corpuscular HGB CONC 32.8 g/dL (32.0-36.0); Mean Corpuscular Hemoglobin 31.8 pg (27.0-31.0); Mean Corpuscular Volume 96.8 fL (78.0-98.0); Mean Platelet Volume 9.3 fL (7.4-10.4); Monocytes 13 % (0-10); Neutrophil 72 % (42-75); Platelet Count 162 thou/uL (130-400); Platelet Morphology Comment Appears Adequate; RBC Distribution Width 16.9 % (11.5-14.5); White Blood Cell (WBC) Count 6.2 thou/uL (4.8-10.8)
[2018-08-09] MEDS: Metoclopramide HCl 10 MG TAB PO SCH (08:07)
[2018-08-09] MEDS: Losartan 25 MG TAB PO SCH (08:07)
[2018-08-09] MEDS: NIFEdipine XL 90 MG TAB PO SCH (08:07)
[2018-08-09] MEDS: Sevelamer Carbonate 800 MG TAB PO SCH ×2 (08:07→11:44)
[2018-08-09] MEDS: Cinacalcet HCl 30 MG TAB PO SCH (08:07)
[2018-08-09] MEDS: Polyethylene Glycol 3350 17 GM Packet PO SCH (08:07)
[2018-08-09] MEDS: Famotidine 20 MG TAB PO SCH (08:08)
--- NOTE | 2018-08-09 11:12 | PRG ---
DATE OF SERVICE: 08/09/2018 SUBJECTIVE: Mr. Colindres is an 82-year-old black male with ESRD and followed up by the [facility] for his maintenance hemodialysis. He is dialyzing adequately. He is tolerating said treatment. He has had episode of confusion as well as bradycardia. Adjustment of medications have been done. No complaints today. OBJECTIVE: VITAL SIGNS: Blood pressure is 133/87, heart rate 87, respiratory rate 18, temperature 98.7, and pulse ox 97%. GENERAL: The patient is awake, alert, and comfortable, not in distress. SKIN: Adequate turgor. HEENT: Pale conjunctivae. Anicteric sclerae. NECK: No neck mass. No carotid bruits. No JVD. CHEST: No deformities. LUNGS: Clear breath sounds. No wheezing. No crackles. HEART: Normal sinus rhythm. No murmurs. No gallops. No rubs. ABDOMEN: Globular, soft, and nontender. No masses. EXTREMITIES: No edema. No deformities. MEDICATIONS: Medications of August 09, 2018, reviewed. LABORATORY DATA: Laboratories of August 09, 2018, white count 6.2 and hemoglobin 8.3. Sodium 138, potassium 3.9, chloride 96, carbon dioxide 34, BUN 30, creatinine 4.77, glucose 94, and calcium 8.3. ASSESSMENT AND PLAN: 1. End-stage renal disease, stable. Continuing Saturday, Saturday, and Saturday dialysis. No indication for any dialytic intervention today. Fluid removal as tolerated. 2. Anemia. Continuing current weekly Epogen. The patient is currently on 7500 units subcu weekly. 3. Bradycardia, resolved. 4. Awaiting rehab evaluation. Agree with current management. Job ID: [id number]
[2018-08-09 11:43] VITALS: BP 141/78; TEMP 98
--- NOTE | 2018-08-09 11:54 | EKG ---
Test Reason : Blood Pressure : / mmHG Vent. Rate : 068 BPM Atrial Rate : 068 BPM P-R Int : 000 ms QRS Dur : 104 ms QT Int : 450 ms P-R-T Axes : 000 -19 152 degrees QTc Int : 478 ms Sinus rhythm with 1st degree A-V block with Premature supraventricular complexes Left ventricular hypertrophy with repolarization abnormality Abnormal ECG Left atrial enlargement Left ventricular hypertrophy Confirmed by PANDA BISHOP, STORM Sharma ([id number]), news copy editor AMADO HORNE ([id number]) on 08/09/2018 11:54:31 AM Referred By: Confirmed By:STORM MOSQUEDA MD
--- NOTE | 2018-08-09 18:51 | DIS ---
DATE OF ADMISSION: 08/04/2018 DATE OF DISCHARGE: 08/09/2018 CONDITION: At the time of discharge, stable and improved. DISCHARGE DISPOSITION: [facility] for long-term care. DISCHARGE DIAGNOSES: 1. Acute on chronic systolic congestive heart failure, NYHA class 4. 2. Non-ST elevation myocardial infarction due to type 2 myocardial infarction from acute congestive heart failure. 3. Metabolic encephalopathy, resolved. 4. Coronary artery disease. 5. BPH. 6. Ischemic cardiomyopathy with latest EF of 30%. 7. End-stage renal disease, on dialysis. 8. Hypertension. 9. Mitral regurgitation and aortic stenosis, moderate. 10. Secondary hyperparathyroidism of renal origin. 11. Chronic thrombocytopenia, resolved. 12. Peripheral arterial disease. 13. Pulmonary arterial hypertension. 14. Sinus bradycardia due to beta-kalen and clonidine, resolved. DISCHARGE MEDICATIONS: New medication; Cozaar 25 mg daily. Stopped medication; beta kalen and clonidine. Continue medication; 1. Nifedipine 90 mg daily. 2. Reglan 5 mg in the morning. 3. Isosorbide mononitrate 60 mg in the morning. 4. Aranesp 25 mcg every 7 days subcu. 5. Sensipar 30 mg daily. 6. DuoNeb p.r.n. 7. Tylenol p.r.n. 8. MiraLAX p.r.n. 9. Protonix 40 mg p.o. b.i.d. 10. Milk of magnesia p.r.n. 11. Robitussin p.r.n. IN-HOUSE CONSULTATION: Nephrology, Dr. Lo. Cardiology, Dr. Arreola and Dr. Mckeon. PROCEDURES DONE IN THE HOSPITAL: 1. CT scan of the brain on 08/05/2018, where the patient had a code green for encephalopathy. It was unremarkable. 2. Transthoracic echocardiogram which shows EF improved from 20% to 25% last month to 30% to 35%. Diastolic dysfunction is noticed. Moderate aortic stenosis as per Cardiology and severely elevated pulmonary arterial pressure of 87 mmHg with moderate tricuspid regurgitation. HISTORY OF PRESENTING ILLNESS: Mr. Colindres is a pleasant 82-year-old male with past medical history of known systolic congestive heart failure as well as end-stage renal disease, diabetes, and coronary artery disease, who presented to the emergency room with complaints of shortness of breath. Upon presentation, he was found to have increased oxygen requirement at the halfway where he is staying as a long-term resident. In the emergency room, the patient's chest x-ray showed pulmonary edema and cardiac enzymes in the indeterminate range. He was admitted with a diagnosis of acute hypoxic respiratory failure due to pulmonary edema and non-ST elevation VA, likely type 2 VA. Please see admission history and physical dictated by Dr. Wallace on 08/04/2018, for full details. HOSPITAL COURSE: Nephrology was consulted and the patient had emergent hemodialysis with removal of fluid as tolerated. His symptoms did improve in terms of his hypoxia and oxygen requirements reduced. It was noticed that the patient was admitted to our facility last month and it was noticed that his EF has gone down from 50% to 55% earlier this year to 20% to 25%. For this reason, an echocardiogram was rechecked and Cardiology was consulted. He also has known history of aortic stenosis diagnosed at least last month or maybe prior to that. Cardiology saw the patient and echo showed slight improvement in his EF as well. His medications were adjusted. The patient was found to be in sinus bradycardia, so beta-kalen and clonidine were discontinued and he was started on Cozaar and continued on Imdur and Procardia. He did have one episode of code green in the hospital due to encephalopathy, where he became very somnolent. All of the workup during the code green including basic lab work, EKG, CT scan of the brain, chest x-ray were rather unremarkable. He was found to have some pleural effusion, which is related to his end-stage renal disease and congestive heart failure. His symptoms resolved quickly and did not reoccur throughout the rest of his hospitalization. He was however on and off sleepy, so he was taken off his gabapentin as well and it had significant improvement in his mentation. As of this morning, he is sitting up in bed and talking and is completely coherent. There are also concerns from some underlying undiagnosed dementia. His fluid removal has been optimized and Cardiology has signed off. He will be discharged back to [facility] instead of [facility] as the prior facility has been closing down. He was seen and examined prior to discharge. PHYSICAL EXAMINATION: VITAL SIGNS: This morning; blood pressure 141/78, saturating 97% on 2 L cannula, heart rate 98. GENERAL: No acute distress. He is able to follow simple commands and answers some questions. CHEST: Clear to auscultation bilaterally. HEART: Rate and rhythm are regular. DISCHARGE LABORATORY DATA: Hemoglobin is 8.3, platelet count of 162. Serum chemistries; chloride 96, bicarb 34, BUN 30, creatinine 4.77. He will continue outpatient hemodialysis as prior and follow up with Dr. Lo in the outpatient setting. PRIMARY CARE PHYSICIAN: Dr. Preet Tenorio. ACCEPTING PHYSICIAN: Dr. Strong. TIME SPENT: Total time spent in the discharge, 34 minutes. Job ID: [id number]
== END 2018-08-09 16:13 | DRG 280 ==
LOC: ERS 20:40 → 2NO 23:31 → OBSVTOIN 08-04 02:38
PROVIDERS: ADMIT Family Medicine; ATTEND Family Medicine
PROC: 5A1D70Z Performance of Urinary Filtration, Intermittent, Less than 6 Hours Per Day (ICD-10-PCS; principal; 2018-08-04)
DX: I13.2 Hypertensive heart and chronic kidney disease with heart failure and with stage 5 chronic kidney disease, or end stage renal disease (principal); N18.6 End stage renal disease; I21.A1 Myocardial infarction type 2; J96.01 Acute respiratory failure with hypoxia; I50.23 Acute on chronic systolic (congestive) heart failure; G93.41 Metabolic encephalopathy; M86.9 Osteomyelitis, unspecified; I25.10 Atherosclerotic heart disease of native coronary artery without angina pectoris; D63.1 Anemia in chronic kidney disease; N40.0 Benign prostatic hyperplasia without lower urinary tract symptoms; K21.9 Gastro-esophageal reflux disease without esophagitis; E21.3 Hyperparathyroidism, unspecified; M19.90 Unspecified osteoarthritis, unspecified site; I25.5 Ischemic cardiomyopathy; E66.9 Obesity, unspecified; D69.6 Thrombocytopenia, unspecified; I73.9 Peripheral vascular disease, unspecified; E78.5 Hyperlipidemia, unspecified; D64.1 Secondary sideroblastic anemia due to disease; I27.21 Secondary pulmonary arterial hypertension; F03.90 Unspecified dementia, unspecified severity, without behavioral disturbance, psychotic disturbance, mood disturbance, and anxiety; R00.1 Bradycardia, unspecified; I08.0 Rheumatic disorders of both mitral and aortic valves; Z79.899 Other long term (current) drug therapy; I25.2 Old myocardial infarction; Z85.46 Personal history of malignant neoplasm of prostate; Z99.2 Dependence on renal dialysis; Z68.22 Body mass index [BMI] 22.0-22.9, adult; I50.84 End stage heart failure; T44.7X5A Adverse effect of beta-adrenoreceptor antagonists, initial encounter; T46.5X5A Adverse effect of other antihypertensive drugs, initial encounter
CPT/HCPCS: 36415; 36416; 70450; 71045; 80048; 80053; 82550; 82553; 82805; 83735; 83880; 84484; 85007; 85025; 85027; 93005; 93010; 93306; 94640; J7620; J8597; Q5105

== ENCOUNTER 2018-08-11 15:42 | Inpatient (IN) | payer MEDICARE, BC ==
--- NOTE | 2018-08-11 16:23 | CT ---
EXAM: CT brain without contrast HISTORY: Altered mental status and sluggishness COMPARISON: 08/05/2018 TECHNIQUE: Multiple contiguous axial images were obtained and a CT of the brain without contrast. FINDINGS: There are scattered hypodensities in the subcortical and periventricular white matter consi stent with small vessel ischemic disease. There is no evidence of hydrocephalus, intracranial hemorrhage, or extra-axial fluid collection. The calvarium and overlying soft tissues are unremarkable. Fluid is seen in the right mastoid air parris ls and middle ear. The visualized paranasal sinuses are well aerated. IMPRESSION: No evidence of acute intracranial abnormality
--- NOTE | 2018-08-11 16:38 | RAD ---
EXAM: CHEST ONE VIEW HISTORY: Altered mental status. End-stage renal disease on dialysis. COMPARISON: 08/05/2018 FINDINGS: Pleural and parenchymal changes are again seen at the left lung base and involving the left midlung z one which may be related to moderate-sized left pleural effusion and atelectasis. Superimposed infiltrate cannot be entirely excluded. A nodule overlying right upper lung zone is again seen. Left cardiac border is obscured, but the cardiac silhouette is probably enlarged. There is mild prominence of perihilar interstitial densities as well as vasculature suggesting an element of mild p ulmonary edema. A vascular stent is again seen overlying the medial right upper lung zone. The osseous structures are intact. Vascular calcifications are seen in the thoracic aorta. IMPRESSION: 1. Right upper lobe pulmonary nodule. This was seen on prior CT thorax on 10/14/2017. 2. Moderate size left pleural effusion and atelectasis. Superimposed infiltrate left midlung zone and left lung base cannot be entirely excluded. 3. Cardiomegaly with increase in central pulmonary vasculature.
[2018-08-11 16:59] LABS: Mean Corpuscular Hemoglobin 31.6 pg (27.0-31.0); Mean Corpuscular Volume 95.6 fL (78.0-98.0); Mean Platelet Volume 9.1 fL (7.4-10.4); Platelet Count 175 thou/uL (130-400); RBC Distribution Width 17.3 % (11.5-14.5); Red Blood Cell (RBC) Count 2.54 mill/uL (4.70-6.10); White Blood Cell (WBC) Count 7.3 thou/uL (4.8-10.8)
[2018-08-11 17:21] LABS: ALT (SGPT) 13 U/L (8-55); AST (SGOT) 15 U/L (5-34); Albumin 3.4 g/dL (3.4-4.8); Alkaline Phosphatase 100 U/L (40-150); Anion Gap 17 mmol/L (10-20); BUN (Urea Nitrogen) 78 mg/dL (8.4-25.7); Bilirubin, Total 0.5 mg/dL (0.2-1.2); CK (CPK) 105 U/L (30-200); Calc. Creatinine Clearance 0 mL/min (70-130); Carbon Dioxide 30 mmol/L (23-31); Chloride 95 mmol/L (98-107); Estimated GFR-MDRD 7; Globulin 3.5 g/dL (2.4-3.5); Glucose 105 mg/dL (83-110); Protein, Total 6.9 g/dL (5.8-8.1); Sodium 137 mmol/L (136-145)
[2018-08-11 17:27] LABS: Anisocytosis SLIGHT = 6-15 cells (100X) (0-5/hpf); Hypochromia SLIGHT = 6-15 cells (100X) (0-5/hpf); Lymphocytes 4 % (21-51); MDiff Complete? YES; Monocytes 4 % (0-10); Neutrophil 92 % (42-75); Platelet Morphology Comment Appears Adequate
[2018-08-11] MEDS ORDERED: Aspirin Chewable 81 MG TAB ONE (17:31)
[2018-08-11 17:45] LABS: CKMB 3.6 ng/mL (0-6.6)
[2018-08-11 18:31] LABS: INR-International Normal Ratio 1.2; PTT 28.7 SEC (22.9-36.1); Prothrombin Time 15.2 SEC (12.0-14.7)
[2018-08-11] MEDS ORDERED: Acetaminophen 650 MG Suppository PR PRN (19:28)
[2018-08-11] MEDS ORDERED: Senokot S 8.6-50 MG TAB PO PRN (19:28)
[2018-08-11] MEDS ORDERED: Guaifenesin DM 100-10/5 ML UDCUP PO PRN (19:28)
[2018-08-11] MEDS ORDERED: Ondansetron PF 4 MG/2 ML Vial IVP PRN (19:28)
[2018-08-11] MEDS ORDERED: Ondansetron ODT 4 MG TAB PO PRN (19:28)
[2018-08-11] MEDS ORDERED: Cepastat Lozenges 1 LOZ PO PRN (19:28)
--- NOTE | 2018-08-11 19:49 | PDOC.EVN ---
Event Note - Event Note Event Note: H&P dictated #[id number], patient with NSTEMI, volume overload, CHF, ESRD, currently without symptoms just increased O2 requirement, needs dialysis, cardiology consulted, no heparin for now due to recent GI bleed with severe anemia.
--- NOTE | 2018-08-11 21:29 | HP ---
PRIMARY CARE PHYSICIAN: Preet Tenorio DO CHIEF COMPLAINT: Altered mental status. HISTORY OF PRESENT ILLNESS: This is an 82-year-old male, recently discharged 2 days ago from our service to [facility]. He was in the hospital with acute on chronic systolic and diastolic congestive heart failure, class 4, with non ST-elevation NE and volume overload requiring dialysis for removal. The patient was also noted to have severe aortic stenosis and Cardiology did follow the patient during his last hospitalization. He was able to have his fluid removed enough that he was saturating well on 2 L of oxygen and was transferred to the custodial. The patient has not been dialyzed since then. He is supposed to go to dialysis today, however, for some reason he did not go per the ER notes, the patient was not sent to dialysis because he was confused, talking to the patient's daughter who was in the room, she was told that he did not go dialysis because something had not been set up at discharge from the hospital and that he later in the day started having difficulty breathing and now that is why he was sent to the hospital. The patient does have some mild dementia and is not able to give any history about what happened, though he denies any complaints currently. Per the ER report, the patient was put in the ED with complaint of altered mental status from the custodial and there was a report of a resolved headache, though the patient denied headache to me, and he was requiring increased doses of oxygen on 4 L of oxygen in the emergency room. In the ER, he was found to have elevated troponin of 0.7, which is above the 0.3 to 0.4, he was with his NSTEMI last hospitalization though was much less than the NSTEMI he had a couple of months ago when he had severe anemia from GI bleed. The patient also was noted to have some ST wave flattening and inversion in the anterolateral leads in his EKG that is new from his last hospitalization, so he is being admitted. REVIEW OF SYSTEMS: Limited due to the patient's mild dementia. CONSTITUTIONAL: No fevers. No chills. EYES: No double vision or blurred vision. ENT: No congestion, drainage, or sore throat. CARDIOVASCULAR: No chest pain. No palpitations or racing heart. PULMONARY: No coughing, wheezing, or shortness of breath. GASTROINTESTINAL: No abdominal pain. No nausea or vomiting. He has had some constipation. GENITOURINARY: He produces very little urine. Denies any urinary complaints. MUSCULOSKELETAL: No muscle aches or joint pain. SKIN: No rashes or lesions. NEUROLOGIC: No numbness, tingling, or focal weakness. PAST MEDICAL HISTORY: All history is taken from the chart secondary to patient's mental status. 1. Coronary artery disease. 2. 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 3. End-stage renal disease, on hemodialysis. 4. Hypertension. 5. Previous gastrointestinal bleed of unclear etiology. 6. History of prostate cancer. PAST SURGICAL HISTORY: Status post hemodialysis catheter placement. FAMILY HISTORY: Positive for hypertension. SOCIAL HISTORY: The patient currently resides at [facility] since apparently [facility] was being closed down, that was where he stayed previously. No tobacco, alcohol, or illicit drugs. ALLERGIES: NO KNOWN DRUG ALLERGIES. CURRENT MEDICATIONS: 1. Terazosin 1 mg daily. 2. Hydralazine 100 mg 3 times a day. 3. Tamsulosin 0.4 mg daily. 4. Nifedipine 120 mg daily. 5. Renvela 800 mg 3 times a day. 6. Gabapentin 300 mg 3 times a day. 7. Metoclopramide 5 mg daily, 30 minutes before meal. 8. Protonix 40 mg daily. 9. Losartan 100 mg daily at bedtime. 10. Isosorbide mononitrate 60 mg daily. 11. Aspirin 81 mg daily. PHYSICAL EXAMINATION: VITAL SIGNS: Blood pressure 134/63, pulse 67, respirations 18, temperature 99.1, O2 saturation 95% on 4 L. GENERAL: This is a well-developed, well-nourished male, in no acute distress. HEENT: Pupils are equal, round, and reactive to light. Oropharynx is clear without lesions, erythema, or exudate. NECK: Supple. No lymphadenopathy. No thyroid nodules or enlargement. HEART: Regular rate and rhythm. No significant murmurs, rubs, or gallops. LUNGS: Clear to auscultation bilaterally. No wheezes, crackles, or rhonchi. ABDOMEN: Soft, nontender to palpation. Normoactive bowel sounds. No hepatosplenomegaly or other masses. EXTREMITIES: No clubbing, cyanosis, or edema. SKIN: No rashes or other lesions noted. NEUROLOGIC: The patient has intact strength and sensation in all extremities. No notable facial droop. He does have some mild protrusion of his tongue and some mild dysarthria. Uncertain if this is chronic or not. PSYCHIATRIC: The patient is alert. He has a little bit of slow speech. He is oriented to person, place, and time. He does not know why he was brought to the hospital though and cannot remember details about his recent hospitalizations. LABORATORY DATA: CBC with a hemoglobin of 8, which is stable from previous, the rest is normal. Coagulation profile shows an INR of 1.2, PT of 15. Complete metabolic panel is notable for chloride of 95, a BUN of 78, creatinine of 8.92, the rest is normal. Troponin was 0.798 up from 0.3, his last hospitalization, but down from a peak of 18, two months ago when he was severely anemic. Brain-natriuretic peptide is severely elevated at 18,000. IMAGING STUDIES: Chest x-ray, I did review the chest x-ray done in the emergency room along with the radiologist's report. It does show persistent changes in the left lung base and left lung mid zone consistent with moderate-sized pleural effusion, atelectasis, and enlarged cardiac silhouette and a stable right upper lobe pulmonary nodule. Does have some increased central pulmonary vascular markings as well. CT of the brain shows no evidence of acute intracranial abnormality. EKG, I did review the EKG done in the emergency room along with the previous one done last month, does show sinus rhythm with first-degree AV block and premature supraventricular complexes. There was some flattening of the T-waves in the anterior leads and then some mild inversions of the T-waves in V5 and V6 and some left ventricular hypertrophy. There were no ST-segment changes. ASSESSMENT: 1. Non ST-elevation myocardial infarction. This is likely due to the patient's volume overload status and underlying coronary artery disease. He does have some minimal changes in his EKG, but is asymptomatic right now as far as no chest pain. Due to his recent gastrointestinal bleed and severe anemia, we will hold off on heparin for now. We will continue patient's aspirin, though and his other heart medications, and we will consult Cardiology. 2. Acute on chronic systolic and diastolic congestive heart failure. We will continue patient's home medications and the patient will need dialysis for fluid removal. 3. End-stage renal disease, on dialysis. We will notify Dr. oL, so the patient can get dialysis in the hospital. 4. Hypertension. Resume patient's blood pressure medications. 5. Previous gastrointestinal bleed. We will resume patient's Protonix. 6. Possible underlying dementia, appears stable per the daughter. 7. Code status. I did discuss this with the patient's daughter who is his medical decision maker. She stated that he is a full code and her name is Rayna Sequeira. Job ID: [id number]
[2018-08-11 23:17] LABS: Troponin I 1.016 ng/mL (< 0.028)
[2018-08-11] MEDS: Famotidine 20 MG TAB PO SCH (23:39)
[2018-08-12 01:37] VITALS: BMI 23.5
[2018-08-12] MEDS: Famotidine 20 MG TAB PO SCH ×2 (01:56→21:42)
[2018-08-12 06:41] LABS: Band 1 % (5-11); Eosinophils 7 % (0-10); Hemoglobin 8.2 g/dL (14.0-18.0); Lymphocytes 8 % (21-51); MDiff Complete? YES; Mean Corpuscular HGB CONC 32.1 g/dL (32.0-36.0); Mean Corpuscular Hemoglobin 31.3 pg (27.0-31.0); Mean Corpuscular Volume 97.7 fL (78.0-98.0); Mean Platelet Volume 9.5 fL (7.4-10.4); Monocytes 9 % (0-10); Neutrophil 75 % (42-75); Platelet Count 159 thou/uL (130-400); RBC Distribution Width 17.1 % (11.5-14.5); White Blood Cell (WBC) Count 8.5 thou/uL (4.8-10.8)
[2018-08-12 07:07] LABS: Anion Gap 20 mmol/L (10-20); Carbon Dioxide 27 mmol/L (23-31); Chloride 95 mmol/L (98-107); Potassium 5.5 mmol/L (3.5-5.1); Sodium 136 mmol/L (136-145)
[2018-08-12 07:08] LABS: BUN (Urea Nitrogen) 85 mg/dL (8.4-25.7); Calc. Creatinine Clearance 6 mL/min (70-130); Calcium 8.6 mg/dL (7.8-10.44); Estimated GFR-MDRD 6; Glucose 83 mg/dL (83-110)
[2018-08-12] MEDS ORDERED: Epoetin (ESRD) 20,000 UNITS/ML SC SCH (09:15)
[2018-08-12] MEDS: Sevelamer Carbonate 800 MG TAB PO SCH ×3 (09:40→17:33)
--- NOTE | 2018-08-12 09:42 | CON ---
DATE OF CONSULTATION: HISTORY: Mr. Colindres is an 82-year-old black male with ESRD and admitted for mental status change. The patient was recently admitted and was just recently discharged. He did miss dialysis yesterday. We are being consulted for his maintenance hemodialysis. This morning, the patient is feeling better. His mentation has much improved. Denies any chest pain or shortness of breath. PHYSICAL EXAMINATION: VITAL SIGNS: Blood pressure is 172/76, heart rate 70, respiratory rate 16, temperature 97.8, and pulse ox 100%. GENERAL: Noted to be awake, alert, sitting comfortable, not in overt distress. SKIN: Adequate turgor. HEENT: He has a pale conjunctivae. Anicteric sclerae. NECK: No neck mass. No carotid bruits. No JVD. CHEST: No deformities. LUNGS: Clear breath sounds. HEART: Normal sinus rhythm. No murmur. No gallops. No rubs. ABDOMEN: Globular. Soft. Nontender. No masses. EXTREMITIES: No edema. No deformities. MEDICATIONS: Medications of August 12, 2018, reviewed. LABORATORY DATA: Laboratories of August 12, 2018; white count 8.5 and hemoglobin 8.2. Sodium 136, potassium 5.5, chloride 95, carbon dioxide 20, BUN 85, creatinine 9.42, glucose 83, and calcium 8.6. Troponin I is 1.016. BNP is 18,237. ASSESSMENT AND PLAN: 1. Mental status change - much improved. The patient has had episodes of confusion, decreased mentation. Previous imaging of the brain has been negative. Continue supportive care. 2. End-stage renal disease. I have scheduled him for his hemodialysis. He did miss dialysis yesterday. He is also in some degree of volume overload based on the x-ray and elevated BNP. 3. Anemia. Resume back Epogen. Thank you for the consult. We will continue to follow. Job ID: [id number]
--- NOTE | 2018-08-12 09:52 | PDOC.PN ---
- Subjective Encounter Start Date: 08/12/18 Encounter Start Time: 13:00 Subjective: Patient seen in dialysis. Currently sleepy and won't talk to me. Nurses in -: dialysis say he was much more awake earlier and talking but then fell -: asleep. No distress. - Objective Resuscitation Status - Order Detail: 08/11/18 19:21 Resuscitation Status Routine Resuscitation Status: FULL: Full Resuscitation Discussed with: Patient MAR Reviewed: Yes Vital Signs & Weight: Vital Signs (12 hours) Temp Pulse Resp BP BP BP Pulse Ox 08/12/18 07:39 97.8 F 70 16 172/76 H 100 08/12/18 03:00 98.7 F 67 16 112/48 L 99 08/12/18 00:03 97.9 F 66 17 109/52 L 100 08/11/18 22:00 98 Weight Weight 163 lb 12.855 oz I&O: 08/11/18 08/12/18 08/13/18 06:59 06:59 06:59 Intake Total 50 Balance 50 Result Diagrams: 08/12/18 05:25 08/12/18 05:25 Phys Exam - Physical Examination Constitutional: NAD HEENT: moist MMs Respiratory: no wheezing, no rales, no rhonchi Cardiovascular: RRR Gastrointestinal: soft, non-tender, positive bowel sounds Musculoskeletal: no edema Neurological: non-focal Deviation from normal: flat affect, opens eyes but then goes right back to sleep Dx/Plan (1) Acute on chronic systolic CHF (congestive heart failure), NYHA class 4 Code(s): I50.23 - ACUTE ON CHRONIC SYSTOLIC (CONGESTIVE) HEART FAILURE Status : Acute Comment: ECHO 07/06 shows decline in EF from 50%-25% with severe . ECHO 08/05/18 however, shows better EF at 30-35%. Diastolic dysfunction as well Exacerbated due to missing dialysis (2) NSTEMI (non-ST elevated myocardial infarction) Code(s): I21.4 - NON-ST ELEVATION (NSTEMI) MYOCARDIAL INFARCTION Status: Acute Comment: Type 2 [place] due to #1 (3) CAD (coronary artery disease) Code(s): I25.10 - ATHSCL HEART DISEASE OF [place] CORONARY ARTERY W/O ANG PCTRS Status: Chronic Qualifiers: Coronary Disease-Associated Artery/Lesion type: [place] artery [place] vs. transplanted heart: [place] heart Associated angina: without angina Qualified Code(s): I25.10 - Atherosclerotic heart disease of [place] coronary artery without angina pectoris (4) ESRD (end stage renal disease) on dialysis Code(s): N18.6 - END STAGE RENAL DISEASE; Z99.2 - DEPENDENCE ON RENAL DIALYSIS Status: Chronic Comment: Plan for HD per Nephrology (5) HTN (hypertension) Code(s): I10 - ESSENTIAL (PRIMARY) HYPERTENSION Status: Chronic Qualifiers: Hypertension type: essential hypertension Qualified Code(s): I10 - Essential (primary) hypertension (6) PAD (peripheral artery disease) Code(s): I73.9 - PERIPHERAL VASCULAR DISEASE, UNSPECIFIED Status: Chronic Comment: h/o Complete RCA occlusion (7) Pulmonary arterial hypertension Code(s): I27.21 - SECONDARY PULMONARY ARTERIAL HYPERTENSION Status: Chronic Comment: Based on ECHO 08/05/18 - Plan cont current plan of care dialysis, any adjustments per cardiology, then can likely go back to -: the longterm if can assure that he will get to dialysis from there * . - Discharge Day Encounter end time: 13:10
[2018-08-12] MEDS ORDERED: EPOETIN ALFA-EPBX (ESRD) 10,000 UNIT/ML VIAL SC SCH (12:00)
[2018-08-12] MEDS: Polyethylene Glycol 3350 17 GM Packet PO SCH (15:57)
[2018-08-12] MEDS: Losartan 25 MG TAB PO SCH (17:31)
[2018-08-12] MEDS: Metoclopramide HCl 10 MG TAB PO SCH (17:31)
[2018-08-12] MEDS: NIFEdipine XL 90 MG TAB PO SCH (17:32)
[2018-08-12] MEDS: Acetaminophen 325 MG TAB PO PRN (21:53)
--- NOTE | 2018-08-13 01:46 | CON ---
DATE OF CONSULTATION: HISTORY OF PRESENT ILLNESS: Henrique Colindres is an 82-year-old black male whom I have followed for many years. He has depressed ejection fraction and moderate to severe aortic stenosis. He is frequently confused and also is on dialysis, however, after his discharge apparently, he did not have any further dialysis sessions. He is now admitted for mental status changes. He denies any chest discomfort or shortness of breath. PAST MEDICAL HISTORY: Coronary artery disease, hyperlipidemia, hypertension, occluded right internal carotid artery, polycystic kidney disease, hypothyroidism, prostate cancer. PAST SURGICAL HISTORY: Lumbar laminectomy, prostate biopsy, left greater saphenous vein radiofrequency ablation. MEDICATIONS: 1. Sensipar 30 daily. 2. DuoNeb. 3. Isosorbide mononitrate 60 q.a.m. 4. Cozaar 25 daily. 5. Reglan 5 mg q.a.m. 6. Nifedipine 90 q.a.m. 7. Protonix 40 b.i.d. 8. Renvela 1600 mg t.i.d. REVIEW OF SYSTEMS: Unobtainable due to his dementia. ALLERGIES: NONE. PHYSICAL EXAMINATION: VITAL SIGNS: Blood pressure 131/62, pulse of 69. HEENT: PERRL. NECK: Supple. CHEST: Clear. CARDIAC: S1 and S2 normal. There is a 2/6 systolic murmur heard throughout the precordium. ABDOMEN: Normal bowel sounds without tenderness. EXTREMITIES: Reveal 1+ pretibial edema. NEUROLOGICAL: Grossly intact except for confusion at times. LABORATORY DATA: EKG reveals normal sinus rhythm with PACs, nonspecific T and T-wave changes. Hemoglobin 8.2, hematocrit 25.4, white count 8500. Sodium 136, potassium 5.5, chloride 95, carbon dioxide 27, BUN 85, creatinine 9.42. Troponin I 1.016. Recently, he has had chronically elevated troponin I's. BNP 18,237.1. IMPRESSION: 1. End-stage renal disease, in need of dialysis. 2. Ejection fraction of 30% to 35%. 3. Diastolic dysfunction. 4. Moderate to severe aortic stenosis. 5. Pulmonary artery pressure of 87 mm. 6. Coronary artery disease-mid RCA stent. 7. Hypercholesterolemia. 8. Hypertension. 9. Former smoker. 10. Occluded right internal carotid artery. 11. Prostate cancer. PLAN: The patient needs to undergo dialysis. Per our previous discussion, he was not particularly interested in LifeVest or do anything with his aortic valve. These discussions need also be held with the family and if everyone is in agreement, then he should be on palliative care. Job ID: [id number]
[2018-08-13] MEDS: Acetaminophen 325 MG TAB PO PRN ×2 (03:23→21:31)
--- NOTE | 2018-08-13 08:33 | PDOC.PN ---
- Subjective Encounter Start Date: 08/13/18 Encounter Start Time: 10:40 Subjective: Patient seen in dialysis. Awake and talkative today. No complaints. No CP/ -: SOB/N/V. - Objective Resuscitation Status - Order Detail: 08/11/18 19:21 Resuscitation Status Routine Resuscitation Status: FULL: Full Resuscitation Discussed with: Patient HELENE Reviewed: Yes Vital Signs & Weight: Vital Signs (12 hours) Temp Pulse Resp BP BP Pulse Ox 08/13/18 07:05 97.9 F 72 16 125/65 98 08/13/18 03:09 98.1 F 75 17 115/66 100 08/13/18 00:00 20 Weight Weight 154 lb 12.232 oz I&O: 08/12/18 08/13/18 08/14/18 06:59 06:59 06:59 Intake Total 50 820 Output Total 4900 Balance 50 -4080 Result Diagrams: 08/12/18 05:25 08/12/18 05:25 Phys Exam - Physical Examination Constitutional: NAD HEENT: moist MMs Respiratory: no wheezing, no rales, no rhonchi Cardiovascular: RRR, no significant murmur Gastrointestinal: soft, non-tender, positive bowel sounds Neurological: non-focal Deviation from normal: flat affect, slow responses Dx/Plan (1) Acute on chronic systolic CHF (congestive heart failure), NYHA class 4 Code(s): I50.23 - ACUTE ON CHRONIC SYSTOLIC (CONGESTIVE) HEART FAILURE Status : Acute Comment: ECHO 07/06 shows decline in EF from 50%-25% with severe . ECHO 08/05/18 however, shows better EF at 30-35%. Diastolic dysfunction as well Exacerbated due to missing dialysis, 4.9 liters removed 08/12/18 (2) NSTEMI (non-ST elevated myocardial infarction) Code(s): I21.4 - NON-ST ELEVATION (NSTEMI) MYOCARDIAL INFARCTION Status: Acute Comment: Type 2 [place] due to #1 (3) CAD (coronary artery disease) Code(s): I25.10 - ATHSCL HEART DISEASE OF [place] CORONARY ARTERY W/O ANG PCTRS Status: Chronic Qualifiers: Coronary Disease-Associated Artery/Lesion type: [place] artery [place] vs. transplanted heart: [place] heart Associated angina: without angina Qualified Code(s): I25.10 - Atherosclerotic heart disease of [place] coronary artery without angina pectoris (4) ESRD (end stage renal disease) on dialysis Code(s): N18.6 - END STAGE RENAL DISEASE; Z99.2 - DEPENDENCE ON RENAL DIALYSIS Status: Chronic Comment: Plan for HD per Nephrology (5) HTN (hypertension) Code(s): I10 - ESSENTIAL (PRIMARY) HYPERTENSION Status: Chronic Qualifiers: Hypertension type: essential hypertension Qualified Code(s): I10 - Essential (primary) hypertension (6) PAD (peripheral artery disease) Code(s): I73.9 - PERIPHERAL VASCULAR DISEASE, UNSPECIFIED Status: Chronic Comment: h/o Complete RCA occlusion (7) Pulmonary arterial hypertension Code(s): I27.21 - SECONDARY PULMONARY ARTERIAL HYPERTENSION Status: Chronic Comment: Based on ECHO 08/05/18 - Plan cont current plan of care need to make sure will get dialysis at [facility] and then can likely be discharged -: when ok with cards and nephrology * . - Discharge Day Encounter end time: 10:50
[2018-08-13] MEDS: Polyethylene Glycol 3350 17 GM Packet PO SCH (09:21)
[2018-08-13] MEDS: Sevelamer Carbonate 800 MG TAB PO SCH ×3 (09:21→16:00)
--- NOTE | 2018-08-13 09:46 | PRG ---
DATE OF SERVICE: 08/13/2018 SUBJECTIVE: Mr. Colindres is an 82-year-old black male with known history of ESRD. He was admitted for mental status change/CHF. He underwent hemodialysis yesterday. This morning, he is more awake. He denies any chest pain or shortness of breath. I have scheduled him for his regular Saturday, Saturday, and Saturday dialysis. OBJECTIVE: VITAL SIGNS: Blood pressure 125/65, heart rate 72, respiratory rate 18, temperature 97.9, and pulse ox 98%. GENERAL: He is awake, alert, sitting comfortable, not in distress. SKIN: Adequate turgor. HEENT: Slightly pale conjunctivae. Anicteric sclerae. No neck mass. No carotid bruits. No JVD. CHEST: No deformities. LUNGS: Clear breath sounds. HEART: Normal sinus rhythm. No murmurs, gallops, or rubs. ABDOMEN: Globular, soft, and nontender. No masses. EXTREMITIES: No edema. No deformities. MEDICATIONS: Medications of August 13, 2018, were reviewed. LABORATORY DATA: Laboratories of August 12, 2018: Hemoglobin 8.2. Sodium 136, potassium 5.5, chloride 95, carbon dioxide 27, BUN 85, creatinine 9.42, glucose 83, and calcium 8.6. ASSESSMENT AND PLAN: 1. End-stage renal disease, stable. We will continue current Saturday, Saturday, and Saturday dialysis. Again, fluid removal only as tolerated. 2. Anemia. Resume back Epogen at 10,000 units subcu every week. 3. Congestive heart failure - clinically improved. We will max out fluid removal as tolerated with dialysis today. 4. Mental status change, resolved. 5. Recheck basic metabolics and CBC in a.m. Job ID: [id number]
[2018-08-13] MEDS: Losartan 25 MG TAB PO SCH (13:50)
[2018-08-13] MEDS: Metoclopramide HCl 10 MG TAB PO SCH (13:50)
[2018-08-13] MEDS: NIFEdipine XL 90 MG TAB PO SCH (13:51)
[2018-08-13] MEDS: Famotidine 20 MG TAB PO SCH (21:29)
[2018-08-14 05:46] LABS: Anion Gap 18 mmol/L (10-20); BUN (Urea Nitrogen) 32 mg/dL (8.4-25.7); Calc. Creatinine Clearance 11 mL/min (70-130); Calcium 9.4 mg/dL (7.8-10.44); Carbon Dioxide 28 mmol/L (23-31); Chloride 99 mmol/L (98-107); Estimated GFR-MDRD 13; Glucose 90 mg/dL (83-110); Potassium 3.8 mmol/L (3.5-5.1); Sodium 141 mmol/L (136-145)
[2018-08-14 05:56] LABS: Eosinophils 2 % (0-10); Hemoglobin 9.4 g/dL (14.0-18.0); Lymphocytes 13 % (21-51); MDiff Complete? YES; Mean Corpuscular HGB CONC 33.1 g/dL (32.0-36.0); Mean Corpuscular Hemoglobin 32.1 pg (27.0-31.0); Mean Corpuscular Volume 96.9 fL (78.0-98.0); Mean Platelet Volume 8.9 fL (7.4-10.4); Monocytes 13 % (0-10); Neutrophil 72 % (42-75); Platelet Count 198 thou/uL (130-400); RBC Distribution Width 16.9 % (11.5-14.5); Red Blood Cell (RBC) Count 2.91 mill/uL (4.70-6.10); White Blood Cell (WBC) Count 6.3 thou/uL (4.8-10.8)
[2018-08-14] MEDS: Sevelamer Carbonate 800 MG TAB PO SCH ×3 (08:27→16:20)
[2018-08-14] MEDS: Polyethylene Glycol 3350 17 GM Packet PO SCH (08:27)
[2018-08-14] MEDS: Losartan 25 MG TAB PO SCH (08:28)
[2018-08-14] MEDS: Metoclopramide HCl 10 MG TAB PO SCH (08:28)
[2018-08-14] MEDS: NIFEdipine XL 90 MG TAB PO SCH (08:28)
--- NOTE | 2018-08-14 09:01 | PRG ---
DATE OF SERVICE: 08/14/2018 SERVICE: Renal Medicine. SUBJECTIVE: Mr. Colindres is an 82-year-old black male with ESRD and followed up by the Renal Service for his maintenance hemodialysis. He did undergo dialysis yesterday without difficulty. Fluid removal was tolerated by the patient. His shortness of breath is much improved. He voices no new complaints today. He denies any chest pain or shortness of breath. OBJECTIVE: VITAL SIGNS: Blood pressure is 124/66, heart rate 69, respiratory rate 17, temperature 97.8, and pulse ox 95%. GENERAL: Awake, alert, comfortable, not in distress. SKIN: Adequate turgor. HEENT: He has slightly pale conjunctivae. Anicteric sclerae. NECK: No neck mass. No carotid bruits. No JVD. CHEST: No deformities. LUNGS: Clear breath sounds. No wheezing. No crackles. HEART: Normal sinus rhythm. No murmurs. No gallops. No rubs. ABDOMEN: Globular, soft, and nontender. No masses. EXTREMITIES: No edema. No deformities. MEDICATIONS: Medications of August 14, 2018, was reviewed. LABORATORY DATA: Laboratories of August 14, 2018; white count 6.3, hemoglobin 9.4. Sodium 141, potassium 3.8, chloride 99, carbon dioxide 28, BUN 32, creatinine 5.11, and calcium 9.4. ASSESSMENT AND PLAN: 1. Congestive heart failure, clinically much improved, tolerating fluid removal with dialysis. 2. End-stage renal disease, stable, tolerating hemodialysis regimen. As previously mentioned, we are maxing out fluid removal as tolerated by the patient. 3. Anemia, stable. Continuing weekly Epogen. Overall, agree with current management. Job ID: [id number]
--- NOTE | 2018-08-14 09:07 | PDOC.PN ---
- Subjective Encounter Start Date: 08/14/18 Encounter Start Time: 12:30 Subjective: Patient without complaints. Ate lunch well and now sleeping. -: Per nurse he is almost impossible to wake up once falls asleep, but -: will wake up spontaneously later and be fine. - Objective Resuscitation Status - Order Detail: 08/11/18 19:21 Resuscitation Status Routine Resuscitation Status: FULL: Full Resuscitation Discussed with: Patient MAR Reviewed: Yes Vital Signs & Weight: Vital Signs (12 hours) Temp Pulse Resp BP Pulse Ox 08/14/18 07:03 97.8 F 69 17 124/66 95 08/14/18 03:00 99.1 F 88 21 H 124/76 93 L 08/14/18 00:00 20 Weight Weight 141 lb 5.061 oz I&O: 08/13/18 08/14/18 08/15/18 06:59 06:59 06:59 Intake Total 820 530 Output Total 4900 4000 Balance -4758 -4920 Result Diagrams: 08/14/18 05:08 08/14/18 05:08 Phys Exam - Physical Examination Constitutional: NAD HEENT: moist MMs sleeping with tongue protruding from mouth which is typical for him Respiratory: no wheezing, no rales, no rhonchi Cardiovascular: RRR Gastrointestinal: soft, positive bowel sounds Musculoskeletal: no edema Neurological: non-focal Deviation from normal: sleeping Dx/Plan (1) Acute on chronic systolic CHF (congestive heart failure), NYHA class 4 Code(s): I50.23 - ACUTE ON CHRONIC SYSTOLIC (CONGESTIVE) HEART FAILURE Status : Acute Comment: ECHO 07/06 shows decline in EF from 50%-25% with severe . ECHO 08/05/18 however, shows better EF at 30-35%. Diastolic dysfunction as well Exacerbated due to missing dialysis, 4.9 liters removed 08/12/18 (2) NSTEMI (non-ST elevated myocardial infarction) Code(s): I21.4 - NON-ST ELEVATION (NSTEMI) MYOCARDIAL INFARCTION Status: Acute Comment: Type 2 CT due to #1 (3) CAD (coronary artery disease) Code(s): I25.10 - ATHSCL HEART DISEASE OF [place] CORONARY ARTERY W/O ANG PCTRS Status: Chronic Qualifiers: Coronary Disease-Associated Artery/Lesion type: [place] artery [place] vs. transplanted heart: [place] heart Associated angina: without angina Qualified Code(s): I25.10 - Atherosclerotic heart disease of [place] coronary artery without angina pectoris (4) ESRD (end stage renal disease) on dialysis Code(s): N18.6 - END STAGE RENAL DISEASE; Z99.2 - DEPENDENCE ON RENAL DIALYSIS Status: Chronic Comment: Plan for HD per Nephrology (5) HTN (hypertension) Code(s): I10 - ESSENTIAL (PRIMARY) HYPERTENSION Status: Chronic Qualifiers: Hypertension type: essential hypertension Qualified Code(s): I10 - Essential (primary) hypertension (6) PAD (peripheral artery disease) Code(s): I73.9 - PERIPHERAL VASCULAR DISEASE, UNSPECIFIED Status: Chronic Comment: h/o Complete RCA occlusion (7) Pulmonary arterial hypertension Code(s): I27.21 - SECONDARY PULMONARY ARTERIAL HYPERTENSION Status: Chronic Comment: Based on ECHO 08/05/18 - Plan cont current plan of care can d/c back to [facility] * . - Discharge Day Encounter end time: 12:40
[2018-08-14 15:35] VITALS: BP 138/57; TEMP 97.8
--- NOTE | 2018-08-15 05:17 | DIS ---
DATE OF ADMISSION: 08/11/2018 DATE OF DISCHARGE: 08/14/2018 PRIMARY CARE PHYSICIAN: Preet Tenorio DO REASON FOR ADMISSION: Acute on chronic systolic and diastolic congestive heart failure and volume overload with non ST-elevation myocardial infarction. DIAGNOSES AT DISCHARGE: 1. Acute on chronic systolic and diastolic congestive heart failure, improved. 2. Non ST-elevation myocardial infarction type 2 due to #1. 3. Coronary artery disease. 4. End-stage renal disease, on dialysis. 5. Hypertension. 6. Peripheral artery disease. 7. Pulmonary artery hypertension. 8. Dementia. PROCEDURES: CT of the brain without contrast showing no evidence of acute intracranial abnormality. CONSULTATIONS: 1. Nephrology, Dr. Lo. 2. Cardiology, Dr. Mckeon. SUMMARY OF HOSPITAL COURSE: This is an 82-year-old male, who was recently seen in the hospital for volume overload with systolic and diastolic congestive heart failure and non ST-elevation myocardial infarction due to severe anemia from a GI bleed. The patient was stabilized and doing much better and was discharged to [facility]. He, for some reason, was never sent to dialysis from [facility] after being discharged. He missed his dialysis. There was also been concern that he was possibly also altered. The patient has a history of some intermittent confusion and also sleeps very heavily and will not wake up whenever he does fall asleep. The patient was sent back to shelter. He was found to have elevation of his troponin again, though not nearly as high as previously and found to be in volume overload. He was back to his normal mental status. However, by the time he came to the emergency room, he was admitted. Dr. Lo did dialyze him and took off many liters of fluid in the hospital over several days. He was able to be taken completely off oxygen at that point and was doing much better. Dr. Mckeon did see him in the hospital and did not recommend any specific medication changes, just volume removal with dialysis. On the day of discharge, the patient was back to his baseline and is being discharged back to [facility] with instructions to send him 3 times a week on Saturday, Saturday, and Saturday. DISCHARGE MANAGEMENT: Discharged back to [facility]. ACTIVITY: As tolerated. DIET: Fluid restricted renal diet. THERAPY: Occupational and Physical Therapy. FOLLOWUP: Follow up with Dr. Mckeon and Dr. Lo in the outpatient setting. MEDICATIONS: The patient is to resume all his previous medications. 1. Cepacol throat lozenges as needed. 2. DuoNeb as needed. 3. Isosorbide mononitrate extended release 60 mg each morning. 4. Cozaar 25 mg daily. 5. Metoclopramide 5 mg each morning. 6. Nifedipine extended release 90 mg each morning. 7. Protonix 40 mg twice a day. 8. MiraLAX 17 g daily. 9. Renvela 1600 mg 3 times a day. 10. Acetaminophen as needed. 11. Calcium carbonate as needed. 12. Sensipar 30 mg daily. 13. Aranesp 25 mcg subcu q.7 days. 14. Robitussin DM 10 mL q.4 hours as needed. 15. Magnesium hydroxide as needed. 16. Simethicone 80 mg 3 times a day as needed. Arranging the details of this discharge took 32 minutes. Job ID: [id number]
--- NOTE | 2018-08-15 09:13 | EKG ---
Test Reason : AMS Blood Pressure : / mmHG Vent. Rate : 071 BPM Atrial Rate : 071 BPM P-R Int : 000 ms QRS Dur : 098 ms QT Int : 436 ms P-R-T Axes : 054 -36 180 degrees QTc Int : 473 ms Sinus rhythm with 1st degree A-V block with Premature supraventricular complexes Left axis deviation Left ventricular hypertrophy with repolarization abnormality Abnormal ECG New T wave inversion V4-V6, I, aVL compared to 08/03/2016 Confirmed by WAYLON SHIRLEY DO ([id number]), order editor AMADO HORNE ([id number]) on 08/15/2018 9:13:14 AM Referred By: Confirmed By:WAYLON SHIRLEY DO
== END 2018-08-14 16:57 | DRG 280 ==
LOC: ERS 15:42 → ERHOLD 18:20 → 2NO 21:47
PROVIDERS: ADMIT Emergency Medicine; ATTEND Emergency Medicine
PROC: 5A1D70Z Performance of Urinary Filtration, Intermittent, Less than 6 Hours Per Day (ICD-10-PCS; principal; 2018-08-11)
DX: I21.A1 Myocardial infarction type 2 (principal); N18.6 End stage renal disease; I50.43 Acute on chronic combined systolic (congestive) and diastolic (congestive) heart failure; I13.2 Hypertensive heart and chronic kidney disease with heart failure and with stage 5 chronic kidney disease, or end stage renal disease; D63.1 Anemia in chronic kidney disease; I35.0 Nonrheumatic aortic (valve) stenosis; E03.9 Hypothyroidism, unspecified; N28.1 Cyst of kidney, acquired; E78.00 Pure hypercholesterolemia, unspecified; I25.10 Atherosclerotic heart disease of native coronary artery without angina pectoris; F32.9 Major depressive disorder, single episode, unspecified; I65.21 Occlusion and stenosis of right carotid artery; I73.9 Peripheral vascular disease, unspecified; K59.00 Constipation, unspecified; I27.21 Secondary pulmonary arterial hypertension; Z99.2 Dependence on renal dialysis; Z85.46 Personal history of malignant neoplasm of prostate; Z87.891 Personal history of nicotine dependence; Z95.5 Presence of coronary angioplasty implant and graft; Z79.82 Long term (current) use of aspirin; Z79.899 Other long term (current) drug therapy
CPT/HCPCS: 36415; 70450; 71045; 80048; 80053; 82550; 82553; 83880; 84484; 85025; 85610; 85730; 93005; J8597